=== PATIENT | female | born 1960 | race Caucasian/White ===

== ENCOUNTER 2017-10-06 08:31 | Emergency (ER) | payer OTHER ==
--- OUTSIDE RECORDS SUMMARY | 2017-10-06 08:34 | XMS REPORT | Clinical Summary ---
:1960 Author Organization [facility] Address [address] [place] [address] Phone Care Team Providers Name Role Phone Unavailable Primary Care Provider Unavailable Allergies No Known Allergies Current Medications Prescription Sig. Disp. Refills Start Date End Date Status ALPRAZolam (XANAX) 1 MG Take 1 mg Active tabletIndications: by mouth anxiety every night as needed for Anxiety. lisinopril-hydroCHLOROth Take 1 Active iazide tablet by (PRINZIDE,ZESTORETIC) mouth 20-25 mg per tablet daily. amLODIPine (NORVASC) 5 Take 5 mg Active MG tablet by mouth daily. gabapentin (NEURONTIN) Take 600 mg Active 600 MG tablet by mouth 3 (three) times daily. traMADol (ULTRAM) 50 mg Take 1 30 tablet 0 03/21/2017 Active tablet tablet (50 mg total) by mouth every 8 (eight) hours as needed for Pain. Max Daily Amount: 150 mg pantoprazole (PROTONIX) Take 1 30 tablet 0 03/22/2017 Active 40 MG tablet tablet (40 mg total) by mouth daily. methylPREDNISolone Take 4 mg 03/03/2017 Discontinued (MEDROL DOSEPACK) 4 mg by mouth 2 7 tablet (two) times daily On her @@nd medrol dose pack 3 weeks . traMADol (ULTRAM) 50 mg Take 50 mg Discontinued tablet by mouth 7 every 8 (eight) hours as needed for Pain. ibuprofen (ADVIL,MOTRIN) Take 600 mg Discontinued 600 MG tablet by mouth 7 every 8 (eight) hours as needed for Pain. 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 SOB (shortness of breath) 03/17/2017 Kidney disease 03/17/2017 Leukocytosis 03/17/2017 Resolved Problems Problem Noted Date Resolved Date Acute kidney injury (HCC) 03/22/2017 03/22/2017 Peritonitis (HCC) 03/19/2017 03/22/2017 Overview: Peritonitis due to Gastric Perforation Gastric ulcer with perforation (HCC) 03/17/2017 03/22/2017 SIRS (systemic inflammatory response syndrome) ([facility]) 03/17/2017 03/22/2017 Encounters Date Type Specialty Care Team Description 03/17/2017 - Hospital Encounter General Internal Rishi, Perforated 03/21/2017 Medicine Adalid Bone, viscus;Sepsis, due to MD unspecified organism ([facility]);Acute post-operative pain;Acute blood loss as cause of postoperative anemia;Acute pulmonary insufficiency following non-thoracic surgery ([facility]) 03/17/2017 Anesthesia Event Ion Saini MD 03/17/2017 Procedure Pass 03/17/2017 Surgery Rishi, LAPAROTOMY,EXPLORATOR Deb Alfredo MD after 10/05/2016 Family History Medical History Relation Name Comments Miscarriages / Stillbirths Father COPD Mother Relation Name Status Comments Father Mother Alive Social History Tobacco Use Types Packs/Day Years Used Date Current Every Day Smoker 0.5 20 Smokeless Tobacco: Current User Tobacco Cessation: Ready to Quit: No; Counseling Given: No Alcohol Use Drinks/Week oz/Week Comments Yes social once a month Sex Assigned at Date Recorded Not on file Last Filed Vital Signs Vital Sign Reading Time Taken Blood Pressure 117/61 03/21/2017 7:28 PM TRAINING COORDINATOR Pulse 79 03/21/2017 7:28 PM TRAINING COORDINATOR Temperature 37.6 C (99.7 F) 03/21/2017 7:28 PM TRAINING COORDINATOR Respiratory Rate 18 03/21/2017 7:28 PM TRAINING COORDINATOR Oxygen Saturation 100% 03/21/2017 7:28 PM TRAINING COORDINATOR Inhaled Oxygen Concentration - - Weight 79.9 kg (176 lb 1.6 oz) 03/21/2017 5:00 AM TRAINING COORDINATOR Height 170.2 cm (5' 7") 03/17/2017 3:00 PM TRAINING COORDINATOR Body Mass Index 27.58 03/21/2017 5:00 AM TRAINING COORDINATOR Plan of Treatment Not on file Procedures Procedure Name Priority Date/Time Associated Diagnosis Comments LAPAROTOMY,EXPLORATORY 03/17/2017 6:25 PM TRAINING COORDINATOR GASTRIC PERFORATION Special Needs (REQ TF) after 10/05/2016 Results EKG-SCANNED (03/24/2017 2:10 PM)RHYTHM STRIP - SCAN (03/24/2017 2:10 PM)CT abdomen/pelvis with IV contrast (03/21/2017 5:55 PM) Specimen Performing Laboratory [facility] Narrative FINAL REPORT HISTORY : r/o abdominal abscess Technique: Multiple axial images of the abdomen and pelvis were performed with the administration of IV and oral contrast from the lung bases to the pubic symphysis. Delayed images were also obtained. This exam was performed according to our departmental dose optimization program which includes automated exposure control, adjustment of the mA and/or kV according to patient size and/or use of iterative reconstructive technique. COMPARISON : Outside CT dated 03/17/2017 COMMENT : There are partially visualized bilateral pleural effusions, left greater than right. Adjacent consolidations more likely represent atelectasis. Pneumonitis or aspiration cannot be excluded. In the dependent position of the gallbladder, there is some hyperdense material that could represent sludge versus stones. The visualized liver, spleen, adrenal glands, kidneys, pancreas, stomach and duodenum are within normal limits. There is no abdominal, retroperitoneal or pelvic lymphadenopathy. Multilevel degenerative disc changes of the thoracic spine are seen. Postsurgical changes are seen in the anterior abdominal wall. There is some partial dehiscence of the subcutaneous fat of the anterior abdominal wall. No free air is identified in the abdomen or pelvis. There is a very small amount of nonspecific fluid in the posterior cul-de-sac. No findings of any bowel obstruction. The small bowel is within normal limits. There is colonic diverticulosis. There are no CT findings to suggest diverticulitis, however. Nonspecific fluid is seen in the large bowel. The findings are nonspecific but can be seen in impending diarrhea or a nonspecific enterocolitis. The appendix is The uterus is within normal limits. No adnexal masses are appreciated. Impression: 1. Very small amount of nonspecific fluid in the posterior cul-de-sac. 2. Colonic diverticulosis without CT findings of diverticulitis. 3. Nonspecific fluid in the large bowel, a finding which can be seen in impending diarrhea or a nonspecific enterocolitis. 4. Colonic diverticulosis without CT findings of diverticulitis. 5. Partially visualized bilateral pleural effusions, left greater than right. Signed: Carina Aguilar MD Report Verified Date/Time:03/21/2017 18:07:08 Reading Location: [facility] B1 C013Y CT Body Reading Room Procedure Note Interface, External Ris In - 03/21/2017 6:09 PM TRAINING COORDINATOR FINAL REPORT HISTORY : r/o abdominal abscess Technique: Multiple axial images of the abdomen and pelvis were performed with the administration of IV and oral contrast from the lung bases to the pubic symphysis. Delayed images were also obtained. This exam was performed according to our departmental dose optimization program which includes automated exposure control, adjustment of the mA and/or kV according to patient size and/or use of iterative reconstructive technique. COMPARISON : Outside CT dated 03/17/2017 COMMENT : There are partially visualized bilateral pleural effusions, left greater than right. Adjacent consolidations more likely represent atelectasis. Pneumonitis or aspiration cannot be excluded. In the dependent position of the gallbladder, there is some hyperdense material that could represent sludge versus stones. The visualized liver, spleen, adrenal glands, kidneys, pancreas, stomach and duodenum are within normal limits. There is no abdominal, retroperitoneal or pelvic lymphadenopathy. Multilevel degenerative disc changes of the thoracic spine are seen. Postsurgical changes are seen in the anterior abdominal wall. There is some partial dehiscence of the subcutaneous fat of the anterior abdominal wall. No free air is identified in the abdomen or pelvis. There is a very small amount of nonspecific fluid in the posterior cul-de-sac. No findings of any bowel obstruction. The small bowel is within normal limits. There is colonic diverticulosis. There are no CT findings to suggest diverticulitis, however. Nonspecific fluid is seen in the large bowel. The findings are nonspecific but can be seen in impending diarrhea or a nonspecific enterocolitis. The appendix is The uterus is within normal limits. No adnexal masses are appreciated. Impression: 1. Very small amount of nonspecific fluid in the posterior cul-de-sac. 2. Colonic diverticulosis without CT findings of diverticulitis. 3. Nonspecific fluid in the large bowel, a finding which can be seen in impending diarrhea or a nonspecific enterocolitis. 4. Colonic diverticulosis without CT findings of diverticulitis. 5. Partially visualized bilateral pleural effusions, left greater than right. Signed: Carina Aguilar MD Report Verified Date/Time: 03/21/2017 18:07:08 Reading Location: [facility] B1 C013Y CT Body Reading Room -Glucose meter (03/21/2017 4:03 PM)Only the most recent of15 resultswithin the time period is included. Component Value Ref Range POC-Glucose Meter 111 (H)Comment: TESTED AT [address] 70 - 110 mg/[place] [address] Specimen Performing Laboratory Blood [address] [address] CBC with platelet count + automated diff (03/21/2017 4:09 AM)Only the most recent of6 resultswithin the time period is included. Component Value Ref Range WBC 13.1 (H) 3.5 - 10.5 K/L RBC 3.74 (L) 3.93 - 5.22 M/L Hemoglobin 12.3 11.2 - 15.7 GM/DL Hematocrit 35.7 34.1 - 44.9 % MCV 95.5 (H) 79.4 - 94.8 fL MCH 32.9 (H) 25.6 - 32.2 pg MCHC 34.5 32.2 - 35.5 GM/DL RDW 13.8 11.7 - 14.4 % Platelets 251 150 - 450 K/CU MM MPV 8.9 (L) 9.4 - 12.3 fL nRBC 0 0 - 0 /100 WBC % Neutros 77 % % Lymphs 12 % % Monos 5 % % Eos 5 % % Baso 0 % # Neutros 10.05 (H) 1.56 - 6.13 K/L # Lymphs 1.54 1.18 - 3.74 K/L # Monos 0.67 (H) 0.24 - 0.36 K/L # Eos 0.61 (H) 0.04 - 0.36 K/L # Baso 0.03 0.01 - 0.08 K/L Immature Granulocytes-Relative 1 0 - 1 % Specimen Performing Laboratory Blood - Arm, Left [facility] [address] CBC with platelet count + automated diff (03/21/2017 4:09 AM)Only the most recent of6 resultswithin the time period is included. Specimen Performing Laboratory Blood Narrative The following orders were created for panel order CBC with platelet count + automated diff. Procedure Abnormality Status --------- ------ CBC with platelet count ...[[id number]]AbnormalFinal result Please view results for these tests on the individual orders. Phosphorus (03/21/2017 4:09 AM)Only the most recent of6 resultswithin the time period is included. Component Value Ref Range Phosphorus 2.8 2.3 - 4.7 mg/dL Specimen Performing Laboratory Blood - Arm, [address] [address] Magnesium (03/21/2017 4:09 AM)Only the most recent of6 resultswithin the time period is included. Component Value Ref Range Magnesium 2.1 1.6 - 2.6 mg/dL Specimen Performing Laboratory Blood - Arm, [address] [address] Basic Metabolic Panel (03/21/2017 4:09 AM)Only the most recent of5 resultswithin the time period is included. Component Value Ref Range Sodium 137 136 - 145 meq/L Potassium 2.9 (L) 3.5 - 5.1 meq/L Chloride 101 98 - 107 meq/L CO2 25 22 - 29 meq/L BUN 9 7 - 21 mg/dL Creatinine 0.69 0.57 - 1.25 mg/dL Glucose 93 70 - 105 mg/dL Calcium 8.8 8.4 - 10.2 mg/dL EGFR 88Comment: ESTIMATED GFR IS NOT ACCURATE mL/min/1.73 sq m CREATININE CLEARANCE IN PREDICTING GLOMERULAR FILTRATION RATE. ESTIMATED GFR IS NOT APPLICABLE FOR DIALYSIS PATIENTS. Specimen Performing Laboratory Blood - Arm, [address] [address] TRANSFUSION SERVICE REPORT - SCAN (03/18/2017 5:42 PM)XR abdomen / KUB 1 view ( 03/17/2017 10:08 PM) Specimen Performing Laboratory GE RIS Narrative FINAL REPORT RAD, ABDOMEN/KUB, 1 VIEW AP CLINICAL INDICATION:"ngt placement" COMPARISON: None TECHNIQUE: Single, frontal radiograph of the abdomen. IMPRESSION: Enteric tube terminates in the expected portion of the gastric body. Nonspecific nonobstructive bowel gas pattern. No pneumatosis or obvious pneumoperitoneum. No acute osseous abnormality. Signed: Tony Celaya MD Report Verified Date/Time:03/17/2017 22:20:51 Reading Location: [address] Ortho Consult Reading Room Procedure Note Interface, External Ris In - 03/17/2017 10:49 PM TRAINING COORDINATOR FINAL REPORT RAD, ABDOMEN/KUB, 1 VIEW AP CLINICAL INDICATION: "ngt placement" COMPARISON: None TECHNIQUE: Single, frontal radiograph of the abdomen. IMPRESSION: Enteric tube terminates in the expected portion of the gastric body. Nonspecific nonobstructive bowel gas pattern. No pneumatosis or obvious pneumoperitoneum. No acute osseous abnormality. Signed: Tony Celaya MD Report Verified Date/Time: 03/17/2017 22:20:51 Reading Location: [facility] Ortho Consult Reading Room Blood gas, arterial (03/17/2017 10:06 PM) Component Value Ref Range pH, Arterial 7.29 (L) 7.35 - 7.45 pCO2, Arterial 33 (L) 35 - 45 mmHg pO2, Arterial 76 (L) 80 - 90 mmHg O2 Sat, Arterial 94.5 (L) 96.0 - 97.0 % HCO3, Arterial 16 (L) 21 - 29 mmol/L Base Excess, Arterial -10.1 (L) -2.0 - 3.0 mmol/L Patient Temperature 36.4 C FIO2 28.0 % Specimen Performing Laboratory Blood, Arterial [facility] [address] [address] Manual Differential (03/17/2017 10:05 PM)Only the most recent of2 resultswithin the time period is included. Component Value Ref Range % Neutros (manual) 76 % % Lymphs (manual) 4 % % Monos (manual) 2 % % Eos (manual) 1 % % Bands (manual) 17 (H) 0 - 10 % # Neutros (manual) 12.01 (H) 1.80 - 8.00 K/L # Lymphs (manual) 0.63 (L) 1.48 - 4.50 K/L # Monos (manual) 0.32 0.00 - 1.30 K/L # Eos (manual) 0.16 0.00 - 0.50 K/L # Bands (manual) 2.7 (H) 0.0 - 0.8 K/L Total Counted 100 Bands plus Segmented Neutrophils 14.69 WBC Morphology Normal Platelet Morphology Normal RBC Morphology Normal Specimen Performing Laboratory Blood [address] [address] Comprehensive metabolic panel (03/17/2017 10:05 PM) Component Value Ref Range Protein, Total 5.3 (L) 6.0 - 8.3 gm/dL Albumin 2.9 (L) 3.5 - 5.0 g/dL Alkaline Phosphatase 60 40 - 150 U/L Total Bilirubin 0.8 0.2 - 1.2 mg/dL Sodium 137 136 - 145 meq/L Potassium 3.9 3.5 - 5.1 meq/L Chloride 109 (H) 98 - 107 meq/L CO2 20 (L) 22 - 29 meq/L BUN 34 (H) 7 - 21 mg/dL Creatinine 1.27 (H) 0.57 - 1.25 mg/dL Glucose 115 (H) 70 - 105 mg/dL Calcium 7.9 (L) 8.4 - 10.2 mg/dL AST 51 (H) 5 - 34 U/L ALT 37 6 - 55 U/L EGFR 44Comment: ESTIMATED GFR IS NOT ACCURATE mL/min/1.73 sq m CREATININE CLEARANCE IN PREDICTING GLOMERULAR FILTRATION RATE. ESTIMATED GFR IS NOT APPLICABLE FOR DIALYSIS PATIENTS. Specimen Performing Laboratory Blood [address] [address] Tissue Exam (03/17/2017 8:25 PM) Component Value Ref Range Case Report Surgical Pathology Report Case: [id number] Authorizing Provider:Adalid Blackwell MD Collected: 03/17/20172024 [address]: 03/18/2017 0801 Cardiovascular Pathologist: Sania Chambers MD Specimen:Gastric, Gastric antrum Biopsy ADDENDUM This addendum is being issued to report the GMS stain. RESULT: - GMS stain highlights non-branching fungal pseudohyphal elements. Morphologically, these are suggestive of Amber species. - It is possible that this could represent colonization of the mucosa post- ulceration - Clinical and radiologic correlation is recommended. [id number] DIAGNOSIS A. STOMACH,ANTRUM, BIOPSY: - GASTRIC WALL WITH ULCERATION AND MARKED ACUTE AND CHRONIC INFLAMMATION - NEGATIVE FOR MALIGNANCY - SEE COMMENT AND MICROSCOPIC DESCRIPTION Signing Pathologist Direct Phone Line: [phone] COMMENT Given the presence of non-specific refractile polarizable fragments in the superficial mucosa and deeper gastric wall, medication induced gastritis and subsequent ulceration is a possibility. Possibility of a contaminant cannot be entirely excluded. Clinical and radiologic correlation is recommended. CPT Code(s) 74971 44916 [id number] CLINICAL HISTORY Gastric perforation SPECIMEN SOURCE Gastric antrum biopsy GROSS DESCRIPTION A. Received in formalin labeled "gastric antrum" are two fragments of herrera-pink tissue measuring 0.3-0.5 cm in greatest dimension. Specimen is entirely submitted in block A1.Received in formalin labeled gastric , description gastric antrum biopsy are two irregular, pink-herrera to joel-white, rubbery fragments of soft tissue measuring 0.5 cm and 1.5 cm in greatest dimension. The specimen is entirely submitted in A1. DB/ew MICROSCOPIC DESCRIPTION Sections show gastric wall with complete ulceration of the lining epithelium and superficial mucosa. The deeper aspect of the gastric wall shows significant acute and chronic inflammation comprised of p redominantly lymphocytes sprinkled with few neutrophils and eosinophils. No definite epithelial cells are identified. Refractile polarizable material is identified in the superficial and deeper aspects of the gastric wall. Immunostain for keratin is negative for epithelial proliferation. Immunostains for CD3,CD5 and CD20 highlight few reactive T cells and B cells respectively. Immunostain for Helicobacter pylori is negati ve; however given the fact that the lining epithelium is completely ulcerated , results may not be entirely reliable. SPECIAL STUDIES The following special studies were performed on this case and the interpretation is incorporated in the diagnostic report above: The immunohistochemistry test was developed and its performance characteristics determined by [facility], Pathology Laboratory. It has not been cleared or approved by the U.S. Food and Drug Administration. The FDA has determined that such clearance or approval is not necessary. The test is used for clinical purposes. It should not be regarded as investigational or for research. This laboratory is certified under the Clinical Laboratory Improvement Amendments of 1988 (CLIA-88) as qualified to perform high complexity clinical laboratory testing. Specimen Performing Laboratory Tissue - Gastric [address] [address] Anaerobic culture (03/17/2017 8:13 PM) Component Value Ref Range Result No anaerobes isolated Specimen Performing Laboratory Abscess - Abdomen [address] [address] Surgically obtained culture + gram stain (03/17/2017 8:13 PM) Component Value Ref Range Result Result 1+ Amber albicans (A) Gram Stain Result 2+ White blood cells seen Gram Stain Result No organisms seen Specimen Performing Laboratory Abscess - Abdomen [address] [address] Organism Antibiotic Method Susceptibility Amber albicans Fluconazole 2: Susceptible Amber albicans Micafungin 0.015: Susceptible Amber albicans Voriconazole 0.03: Susceptible ECG 12 lead (03/17/2017 4:22 PM) Specimen Performing Laboratory GE MUSE Narrative Ventricular Rate 63 BPM Atrial Rate 63 BPM P-R Interval 150 ms QRS Duration 86 ms Q-T Interval 432 ms QTC Calculation(Bazett) 442 ms P [place] 43 degrees R [place] 47 degrees T [place] 63 degrees Normal sinus rhythm Normal ECG No previous ECGs available Confirmed by MD RIOS YOCHAI ([id number]) on 03/21/2017 6:38:32 AM Procedure Note Interface, External Ris In - 03/21/2017 6:38 AM TRAINING COORDINATOR Ventricular Rate 63 BPM Atrial Rate 63 BPM P-R Interval 150 ms QRS Duration 86 ms Q-T Interval 432 ms QTC Calculation(Bazett) 442 ms P [place] 43 degrees R [place] 47 degrees T [place] 63 degrees Normal sinus rhythm Normal ECG No previous ECGs available Confirmed by MD RIOS YOCHAI ([id number]) on 03/21/2017 6:38:32 AM Prothrombin time/INR (03/17/2017 4:18 PM)Only the most recent of2 resultswithin the time period is included. Component Value Ref Range Protime 13.9 11.7 - 14.7 seconds INR 1.1 <=5.9 Specimen Performing Laboratory Blood [facility] [address] Narrative RECOMMENDED COUMADIN/WARFARIN INR THERAPY RANGES STANDARD DOSE: 2.0 - 3.0 Includes: PROPHYLAXIS for venous thrombosis, systemic embolization; TREATMENT for venous thrombosis and/or pulmonary embolus. HIGH RISK: Target INR is 2.5-3.5 for patients with mechanical heart valves. Type and screen, automated (03/17/2017 4:16 PM) Component Value Ref Range ABO/RH AUTOMATED (BEAKER) AB POSITIVE Ab Scrn NEGATIVE Specimen Performing Laboratory Blood [address] [address] Troponin I (03/17/2017 4:16 PM) Component Value Ref Range Troponin I <0.01 0.00 - 0.03 ng/mL Specimen Performing Laboratory [address] [address] Narrative Troponin I (TnI) levels must be interpreted in the context of the presenting symptoms and the clinical findings. Elevated TnI levels indicate myocardial damage, but are not specific for ischemic heart disease. Elevated TnI levels are seen in patients with other cardiac conditions (including myocarditis and congestive heart failure), and slight TnI elevations occur in patients with other conditions, including sepsis, renal failure, acidosis, acute neurological disease, and persistent tachyarrhythmia. Blood culture #2 (03/17/2017 4:16 PM)Only the most recent of2 resultswithin the time period is included. Component Value Ref Range Result No growth in 5 days Specimen Performing Laboratory Blood - Arm, Left [address] [address] aPTT (03/17/2017 4:16 PM) Component Value Ref Range PTT 21.4 (L) 22.5 - 36.0 seconds Specimen Performing Laboratory Blood [address] [address] Creatine Kinase (CK), Total and MB (03/17/2017 4:16 PM) Component Value Ref Range Total CK 39 29 - 200 U/L CK-MB 1.2 0.0 - 6.6 ng/mL MB Relative Index 3.1 % Specimen Performing Laboratory Blood [address] [address] Narrative CK-MB Reference Range: <6.7Normal 6.7-10.0Borderline >10.0 Abnormal Hepatic function panel (03/17/2017 4:16 PM) Component Value Ref Range Protein, Total 6.5Comment: Specimen slightly hemolyzed 6.0 - 8.3 gm/dL Albumin 3.4 (L)Comment: Specimen slightly hemolyzed 3.5 - 5.0 g/dL Total Bilirubin 0.8Comment: Specimen slightly hemolyzed 0.2 - 1.2 mg/dL Bilirubin, Direct 0.3Comment: Specimen slightly hemolyzed 0.1 - 0.5 mg/dL Alkaline Phosphatase 73 40 - 150 U/L AST 16Comment: Specimen slightly hemolyzed 5 - 34 U/L ALT 14Comment: Specimen slightly hemolyzed 6 - 55 U/L Specimen Performing Laboratory Blood [facility] [address] [address] after 10/05/2016
--- OUTSIDE RECORDS SUMMARY | 2017-10-06 08:34 | XMS REPORT ---
:1960 [facility] Address [address] [place] [address] Dr. Freeman [address] [place] [id number] Care Team Providers Name Role Phone ALETA BLACKWELL Unavailable Unavailable Problems This patient has no known problems. Allergies, Adverse Reactions, Alerts This patient has no known allergies or adverse reactions. Medications This patient has no known medications. Results Test Description Test Time Test Comments Text Results Atomic Results Result Comments BLOOD CULTURE 2017-03-22 23:00:00 Test Item Value Reference Range Comments CULTURE (BEAKER) (test nxgv=1398) No growth in 5 days BLOOD [id number] 23:00:00 Test Item Value Reference Range Comments CULTURE (BEAKER) (test msqb=6635) No growth in 5 days ANAEROBIC [id number] 04:03:00 Test Item Value Reference Range Comments CULTURE (BEAKER) (test qxsc=6645) No anaerobes isolated TISSUE [id number] 18:46:00Surgical Pathology Report Case: [id number] Authorizing Provider: Aleta Blackwell MD Collected: 03/17/20172024 Ordering Location: [address] Received: 03/18/2017 0801 Cardiovascular Pathologist: Sania Chambers MD Specimen: Gastric, Gastric antrum Biopsy This addendum is being issued to report the GMS stain.RESULT:- GMS stain highlights non-branching fungal pseudohyphal elements. Morphologically, these are suggestive of Amber species. - It is possible that this could represent colonization of the mucosa post- ulceration- Clinical and radiologic correlation is recommended.[id number] electronically signed by Sania Chambers MD on 03/21/2017 at 6:46 PMA. STOMACH,ANTRUM, BIOPSY: - GASTRIC WALL WITH ULCERATION AND MARKED ACUTE AND CHRONIC INFLAMMATION - NEGATIVE FOR MALIGNANCY - SEE COMMENT AND MICROSCOPIC DESCRIPTION Signing Pathologist Direct Phone Line: [phone] signed by Sania Chambers MD on 03/21/2017 at 5:51 PMPreliminary result electronically signed by Sania Chambers MD on 2016 at 10:07 AMGiven the presence of non-specific refractile polarizable fragments in the superficial mucosa and deeper gastric wall, medication induced gastritis and subsequent ulceration is a possibility. Possibility of a contaminant cannot be entirely excluded. Clinical and radiologic correlation is recommended.[id number] perforationGastric antrum biopsyA. Received in formalin labeled "gastric antrum" are two fragments of herrera-pink tissue measuring 0.3-0.5 cm in greatest dimension. Specimen is entirely submitted in block A1.Received in formalin labeled "gastric", description "gastric antrum biopsy" are two irregular, pink-herrera to joel-white, rubbery fragments of soft tissue measuring 0.5 cm and 1.5 cm in greatest dimension. The specimen is entirely submitted in A1. DB/ew Sections show gastric wall with complete ulceration of the lining epithelium and superficial mucosa. The deeper aspect of the gastric wall showssignificant acute and chronic inflammation comprised of predominantly lymphocytes sprinkled with fewneutrophils and eosinophils. No definite epithelial cells are identified. Refractile polarizable material is identified in the superficial and deeper aspects of the gastric wall.Immunostain for keratinis negative for epithelial proliferation. Immunostains for CD3,CD5 and CD20 highlight few reactive Tcells and B cells respectively. Immunostain for Helicobacter pylori is negative; however given the fact that the lining epithelium is completely ulcerated, results may not be entirely reliable. The following special studies were performed on this case and the interpretation is incorporated in the diagnostic report above:The immunohistochemistry test was developed and its performance characteristics determined by [facility], Pathology Laboratory. It has not been cleared or approved by the U.S. Food and Drug Administration. The FDA has determined that such clearance or approval is not necessary. The test is used for clinical purposes. It should not be regarded as investigational orfor research. This laboratory is certified under the Clinical Laboratory Improvement Amendments of 1988 (CLIA-88) as qualified to perform high complexity clinical laboratory testing.CT, [id number] 18:07:00Please give IV and ORAL contrast to rule out intra-abdominal abscess. Persistent leukocytosis. s/p viky patch repair on 03/18 due to gastric perforation from ulcer.FINAL REPORT HISTORY : r/o abdominal abscess Technique: Multiple axial imagesof the abdomen and pelvis were performed with the administration of IV and oral contrast from the lung bases to the pubic symphysis. Delayed images were also obtained. This exam was performed accordingto our departmental dose optimization program which includes automated exposure control, adjustment of the mA and/or kV according to patient size and/ or use of iterative reconstructive technique. COMPARISON : Outside CT dated 03/17 COMMENT : There are partially visualized bilateral [...] left greater than right. Signed: Carina Aguilar MDReport Verified Date/Time: 03/21/2017 18:07:08 Reading Location: [facility] B1 C013Y CT Body Reading Room POCT-GLUCOSE [id number] 17:34:00 Test Item Value Reference Range Comments POC-GLUCOSE METER (BEAKER) 111 mg/dL 70-110 TESTED AT [address] (test lonx=4362) [place] [address] SURGICALLY OBTAINED CULTURE + GRAM [id number] 15:37:00 Test Item Value Reference Range Comments CULTURE (BEAKER) (test 1+ Amber cuun=8076) albicans GRAM STAIN RESULT 2+ White blood (BEAKER) (test cells seen mydq=6981) GRAM STAIN RESULT No organisms seen (BEAKER) (test fauy=722647) CULTURE (BEAKER) (test klqo=6739) 5-Flurocytosine (test ehmq=556) Caspofungin acetate (test wwwr=413) Fluconazole (test gttr=972) Itraconazole (test vfik=898) Micafungin (test yfgm=240) Voriconazole (test mtfo=353) Amphotericin B (test Susceptible >0-0 , No tjbr=200) Interpretations Established <=0 or >0 Posaconazole (test Susceptible >0-0 , No dtjl=871) Interpretations Established <=0 or >0 GRAM STAIN RESULT No organisms seen (BEAKER) (test mjtf=517908) POCT-GLUCOSE [id number] 12:25:00 Test Item Value Reference Range Comments POC-GLUCOSE METER (BEAKER) 88 mg/dL 70-110 TESTED AT [address] (test vcoo=8570) [place] [address] [id number] 05:41:00 Test Item Value Reference Range Comments PHOSPHORUS (BEAKER) (test tywv=648) 2.8 mg/dL 2.3-4.7 [id number] 05:41:00 Test Item Value Reference Range Comments MAGNESIUM (BEAKER) (test nnel=709) 2.1 mg/dL 1.6-2.6 BASIC METABOLIC [id number] 05:41:00 Test Item Value Reference Range Comments SODIUM (BEAKER) (test 137 meq/L 136-145 nblc=457) POTASSIUM (BEAKER) (test 2.9 meq/L 3.5-5.1 rmqc=508) CHLORIDE (BEAKER) (test 101 meq/L 98-107 zptf=406) CO2 (BEAKER) (test 25 meq/L 22-29 dvtu=729) BLOOD UREA NITROGEN 9 mg/dL 7-21 (BEAKER) (test ixuf=646) CREATININE (BEAKER) (test 0.69 mg/dL 0.57-1.25 qfig=355) GLUCOSE RANDOM (BEAKER) 93 mg/dL 70-105 (test iqdx=211) CALCIUM (BEAKER) (test 8.8 mg/dL 8.4-10.2 miwa=607) EGFR (BEAKER) (test 88 mL/min/1.73 sq m ESTIMATED GFR IS NOT htnl=6486) ACCURATE CREATININE CLEARANCE IN PREDICTING GLOMERULAR FILTRATION RATE. ESTIMATED GFR IS NOT APPLICABLE FOR DIALYSIS PATIENTS. CBC W/PLT COUNT & AUTO [id number] 05:34:00 Test Item Value Reference Range Comments WHITE BLOOD CELL COUNT (BEAKER) (test jder=790) 13.1 K/ L 3.5-10.5 RED BLOOD CELL COUNT (BEAKER) (test pgtf=092) 3.74 M/ L 3.93-5.22 HEMOGLOBIN (BEAKER) (test eats=199) 12.3 GM/DL 11.2-15.7 HEMATOCRIT (BEAKER) (test gupc=665) 35.7 % 34.1-44.9 MEAN CORPUSCULAR VOLUME (BEAKER) (test nnkn=910) 95.5 fL 79.4-94.8 MEAN CORPUSCULAR HEMOGLOBIN (BEAKER) (test 32.9 pg 25.6-32.2 jsjj=047) MEAN CORPUSCULAR HEMOGLOBIN CONC (BEAKER) (test 34.5 GM/DL 32.2-35.5 qkpp=712) RED CELL DISTRIBUTION WIDTH (BEAKER) (test 13.8 % 11.7-14.4 ajni=641) PLATELET COUNT (BEAKER) (test khhq=959) 251 K/CU MM 150-450 MEAN PLATELET VOLUME (BEAKER) (test xymp=481) 8.9 fL 9.4-12.3 NUCLEATED RED BLOOD CELLS (BEAKER) (test 0 /100 WBC 0-0 arlb=534) NEUTROPHILS RELATIVE PERCENT (BEAKER) (test 77 % siud=566) LYMPHOCYTES RELATIVE PERCENT (BEAKER) (test 12 % biym=768) MONOCYTES RELATIVE PERCENT (BEAKER) (test 5 % zfad=563) EOSINOPHILS RELATIVE PERCENT (BEAKER) (test 5 % dkdu=156) BASOPHILS RELATIVE PERCENT (BEAKER) (test 0 % tvxd=536) NEUTROPHILS ABSOLUTE COUNT (BEAKER) (test 10.05 K/ L 1.56-6.13 zynq=950) LYMPHOCYTES ABSOLUTE COUNT (BEAKER) (test 1.54 K/ L 1.18-3.74 lryf=307) MONOCYTES ABSOLUTE COUNT (BEAKER) (test 0.67 K/ L 0.24-0.36 faql=343) EOSINOPHILS ABSOLUTE COUNT (BEAKER) (test 0.61 K/ L 0.04-0.36 nxqs=162) BASOPHILS ABSOLUTE COUNT (BEAKER) (test 0.03 K/ L 0.01-0.08 ufvf=233) IMMATURE GRANULOCYTES-RELATIVE PERCENT (BEAKER) 1 % 0-1 (test hjel=6688) POCT-GLUCOSE [id number] 05:14:00 Test Item Value Reference Range Comments POC-GLUCOSE METER (BEAKER) 98 mg/dL 70-110 TESTED AT [address] (test bplk=4008) [place] [address] POCT-GLUCOSE [id number] 00:28:00 Test Item Value Reference Range Comments POC-GLUCOSE METER (BEAKER) 104 mg/dL 70-110 TESTED AT [address] (test gxqv=2489) [place] [address] POCT-GLUCOSE [id number] 17:13:00 Test Item Value Reference Range Comments POC-GLUCOSE METER (BEAKER) 90 mg/dL 70-110 TESTED AT [address] (test whsj=7906) [place] [address] POCT-GLUCOSE [id number] 12:20:00 Test Item Value Reference Range Comments POC-GLUCOSE METER (BEAKER) 101 mg/dL 70-110 TESTED AT [address] (test ahpk=3538) [place] [address] [id number] 06:21:00 Test Item Value Reference Range Comments PHOSPHORUS (BEAKER) (test pmfa=761) 2.5 mg/dL 2.3-4.7 [id number] 06:21:00 Test Item Value Reference Range Comments MAGNESIUM (BEAKER) (test gltf=652) 1.8 mg/dL 1.6-2.6 BASIC METABOLIC [id number] 06:21:00 Test Item Value Reference Range Comments SODIUM (BEAKER) (test 139 meq/L 136-145 cydv=653) POTASSIUM (BEAKER) (test 2.9 meq/L 3.5-5.1 axpe=947) CHLORIDE (BEAKER) (test 105 meq/L 98-107 jeiy=453) CO2 (BEAKER) (test 22 meq/L 22-29 xgha=598) BLOOD UREA NITROGEN 12 mg/dL 7-21 (BEAKER) (test ghxu=654) CREATININE (BEAKER) (test 0.72 mg/dL 0.57-1.25 pnei=868) GLUCOSE RANDOM (BEAKER) 85 mg/dL 70-105 (test nxoh=104) CALCIUM (BEAKER) (test 8.4 mg/dL 8.4-10.2 jsdf=240) EGFR (BEAKER) (test 84 mL/min/1.73 sq m ESTIMATED GFR IS NOT dvqq=7136) ACCURATE CREATININE CLEARANCE IN PREDICTING GLOMERULAR FILTRATION RATE. ESTIMATED GFR IS NOT APPLICABLE FOR DIALYSIS PATIENTS. CBC W/PLT COUNT & AUTO [id number] 06:05:00 Test Item Value Reference Range Comments WHITE BLOOD CELL COUNT (BEAKER) (test zcod=087) 16.4 K/ L 3.5-10.5 RED BLOOD CELL COUNT (BEAKER) (test nplv=602) 3.88 M/ L 3.93-5.22 HEMOGLOBIN (BEAKER) (test nfko=191) 12.6 GM/DL 11.2-15.7 HEMATOCRIT (BEAKER) (test uaad=116) 37.5 % 34.1-44.9 MEAN CORPUSCULAR VOLUME (BEAKER) (test sksm=889) 96.6 fL 79.4-94.8 MEAN CORPUSCULAR HEMOGLOBIN (BEAKER) (test 32.5 pg 25.6-32.2 qcjh=885) MEAN CORPUSCULAR HEMOGLOBIN CONC (BEAKER) (test 33.6 GM/DL 32.2-35.5 czkl=810) RED CELL DISTRIBUTION WIDTH (BEAKER) (test 14.1 % 11.7-14.4 ukzc=843) PLATELET COUNT (BEAKER) (test rnon=907) 210 K/CU MM 150-450 MEAN PLATELET VOLUME (BEAKER) (test ipjx=267) 9.1 fL 9.4-12.3 NUCLEATED RED BLOOD CELLS (BEAKER) (test 0 /100 WBC 0-0 eegb=440) NEUTROPHILS RELATIVE PERCENT (BEAKER) (test 82 % hvhe=030) LYMPHOCYTES RELATIVE PERCENT (BEAKER) (test 10 % hvbp=249) MONOCYTES RELATIVE PERCENT (BEAKER) (test 3 % cmnr=759) EOSINOPHILS RELATIVE PERCENT (BEAKER) (test 4 % lnet=358) BASOPHILS RELATIVE PERCENT (BEAKER) (test 0 % sgvs=896) NEUTROPHILS ABSOLUTE COUNT (BEAKER) (test 13.48 K/ L 1.56-6.13 gofb=830) LYMPHOCYTES ABSOLUTE COUNT (BEAKER) (test 1.56 K/ L 1.18-3.74 nzvp=610) MONOCYTES ABSOLUTE COUNT (BEAKER) (test 0.45 K/ L 0.24-0.36 ihod=105) EOSINOPHILS ABSOLUTE COUNT (BEAKER) (test 0.69 K/ L 0.04-0.36 mfbn=208) BASOPHILS ABSOLUTE COUNT (BEAKER) (test 0.03 K/ L 0.01-0.08 togz=486) IMMATURE GRANULOCYTES-RELATIVE PERCENT (BEAKER) 1 % 0-1 (test wsuv=7400) POCT-GLUCOSE [id number] 05:44:00 Test Item Value Reference Range Comments POC-GLUCOSE METER (BEAKER) 99 mg/dL 70-110 TESTED AT [address] (test yuns=5726) [place] [id number] POCT-GLUCOSE [id number] 23:08:00 Test Item Value Reference Range Comments POC-GLUCOSE METER (BEAKER) 107 mg/dL 70-110 TESTED AT [address] (test judi=3262) [facility] [address] POCT-GLUCOSE [id number] 17:56:00 Test Item Value Reference Range Comments POC-GLUCOSE METER (BEAKER) 102 mg/dL 70-110 TESTED AT [address] (test ygmk=7750) [place] [address] POCT-GLUCOSE [id number] 13:00:00 Test Item Value Reference Range Comments POC-GLUCOSE METER (BEAKER) 119 mg/dL 70-110 TESTED AT [address] (test nnnl=6131) [facility] [address] [id number] 08:26:00 Test Item Value Reference Range Comments PHOSPHORUS (BEAKER) (test lrrq=814) 2.0 mg/dL 2.3-4.7 [id number] 08:26:00 Test Item Value Reference Range Comments MAGNESIUM (BEAKER) (test ifle=631) 2.2 mg/dL 1.6-2.6 BASIC METABOLIC [id number] 08:26:00 Test Item Value Reference Range Comments SODIUM (BEAKER) (test 141 meq/L 136-145 drmj=078) POTASSIUM (BEAKER) (test 3.6 meq/L 3.5-5.1 tuko=458) CHLORIDE (BEAKER) (test 108 meq/L 98-107 owxy=463) CO2 (BEAKER) (test 21 meq/L 22-29 ybqv=521) BLOOD UREA NITROGEN 19 mg/dL 7-21 (BEAKER) (test rwiw=809) CREATININE (BEAKER) (test 0.87 mg/dL 0.57-1.25 cmtu=734) GLUCOSE RANDOM (BEAKER) 91 mg/dL 70-105 (test vubq=095) CALCIUM (BEAKER) (test 8.5 mg/dL 8.4-10.2 lbjq=360) EGFR (BEAKER) (test 68 mL/min/1.73 sq m ESTIMATED GFR IS NOT rope=6488) ACCURATE CREATININE CLEARANCE IN PREDICTING GLOMERULAR FILTRATION RATE. ESTIMATED GFR IS NOT APPLICABLE FOR DIALYSIS PATIENTS. CBC W/PLT COUNT & AUTO [id number] 08:18:00 Test Item Value Reference Range Comments WHITE BLOOD CELL COUNT (BEAKER) (test ytum=673) 15.8 K/ L 3.5-10.5 RED BLOOD CELL COUNT (BEAKER) (test nska=019) 4.15 M/ L 3.93-5.22 HEMOGLOBIN (BEAKER) (test nhjg=739) 13.8 GM/DL 11.2-15.7 HEMATOCRIT (BEAKER) (test idfr=618) 41.4 % 34.1-44.9 MEAN CORPUSCULAR VOLUME (BEAKER) (test bcjg=797) 99.8 fL 79.4-94.8 MEAN CORPUSCULAR HEMOGLOBIN (BEAKER) (test 33.3 pg 25.6-32.2 yzjg=895) MEAN CORPUSCULAR HEMOGLOBIN CONC (BEAKER) (test 33.3 GM/DL 32.2-35.5 gxbb=465) RED CELL DISTRIBUTION WIDTH (BEAKER) (test 14.7 % 11.7-14.4 dcxb=163) PLATELET COUNT (BEAKER) (test abnb=871) 210 K/CU MM 150-450 MEAN PLATELET VOLUME (BEAKER) (test pdsc=713) 9.6 fL 9.4-12.3 NUCLEATED RED BLOOD CELLS (BEAKER) (test 0 /100 WBC 0-0 zrtf=310) NEUTROPHILS RELATIVE PERCENT (BEAKER) (test 86 % thsm=427) LYMPHOCYTES RELATIVE PERCENT (BEAKER) (test 8 % nisy=455) MONOCYTES RELATIVE PERCENT (BEAKER) (test 3 % amjh=535) EOSINOPHILS RELATIVE PERCENT (BEAKER) (test 2 % yipq=616) BASOPHILS RELATIVE PERCENT (BEAKER) (test 0 % htlv=679) NEUTROPHILS ABSOLUTE COUNT (BEAKER) (test 13.65 K/ L 1.56-6.13 knrx=915) LYMPHOCYTES ABSOLUTE COUNT (BEAKER) (test 1.22 K/ L 1.18-3.74 oplk=942) MONOCYTES ABSOLUTE COUNT (BEAKER) (test 0.51 K/ L 0.24-0.36 tbly=535) EOSINOPHILS ABSOLUTE COUNT (BEAKER) (test 0.26 K/ L 0.04-0.36 xwxt=359) BASOPHILS ABSOLUTE COUNT (BEAKER) (test 0.03 K/ L 0.01-0.08 nzjo=279) IMMATURE GRANULOCYTES-RELATIVE PERCENT (BEAKER) 1 % 0-1 (test djsi=8877) POCT-GLUCOSE [id number] 07:31:00 Test Item Value Reference Range Comments POC-GLUCOSE METER (BEAKER) 104 mg/dL 70-110 TESTED AT [address] (test nsgf=4120) [facility] [address] POCT-GLUCOSE [id number] 00:39:00 Test Item Value Reference Range Comments POC-GLUCOSE METER (BEAKER) 91 mg/dL 70-110 TESTED AT [address] (test hyzc=9278) [facility] [address] POCT-GLUCOSE [id number] 17:36:00 Test Item Value Reference Range Comments POC-GLUCOSE METER (BEAKER) 81 mg/dL 70-110 TESTED AT [facility] [address] [facility] (test mmsz=2439) [facility] [address] POCT-GLUCOSE [id number] 11:26:00 Test Item Value Reference Range Comments POC-GLUCOSE METER (BEAKER) 105 mg/dL 70-110 TESTED AT [address] (test pdxh=2203) [facility] [address] POCT-GLUCOSE [id number] 05:58:00 Test Item Value Reference Range Comments POC-GLUCOSE METER (BEAKER) 124 mg/dL 70-110 TESTED AT [address] (test unbd=5108) [facility] [address] [id number] 03:33:00 Test Item Value Reference Range Comments PHOSPHORUS (BEAKER) (test hwrb=522) 4.9 mg/dL 2.3-4.7 [id number] 03:33:00 Test Item Value Reference Range Comments MAGNESIUM (BEAKER) (test nefl=470) 1.7 mg/dL 1.6-2.6 BASIC METABOLIC [id number] 03:33:00 Test Item Value Reference Range Comments SODIUM (BEAKER) (test 138 meq/L 136-145 hlcz=680) POTASSIUM (BEAKER) (test 4.5 meq/L 3.5-5.1 tuqc=914) CHLORIDE (BEAKER) (test 110 meq/L 98-107 twoy=071) CO2 (BEAKER) (test 20 meq/L 22-29 jptn=890) BLOOD UREA NITROGEN 29 mg/dL 7-21 (BEAKER) (test okcx=899) CREATININE (BEAKER) (test 1.12 mg/dL 0.57-1.25 acuz=386) GLUCOSE RANDOM (BEAKER) 124 mg/dL 70-105 (test wsvv=289) CALCIUM (BEAKER) (test 8.1 mg/dL 8.4-10.2 ybfv=450) EGFR (BEAKER) (test 51 mL/min/1.73 sq m ESTIMATED GFR IS NOT tawe=3850) ACCURATE CREATININE CLEARANCE IN PREDICTING GLOMERULAR FILTRATION RATE. ESTIMATED GFR IS NOT APPLICABLE FOR DIALYSIS PATIENTS. CBC W/PLT COUNT & AUTO [id number] 03:22:00 Test Item Value Reference Range Comments WHITE BLOOD CELL COUNT (BEAKER) (test aoki=065) 19.3 K/ L 3.5-10.5 RED BLOOD CELL COUNT (BEAKER) (test fteu=452) 3.62 M/ L 3.93-5.22 HEMOGLOBIN (BEAKER) (test turm=571) 11.9 GM/DL 11.2-15.7 HEMATOCRIT (BEAKER) (test idfi=676) 36.5 % 34.1-44.9 MEAN CORPUSCULAR VOLUME (BEAKER) (test rojc=365) 100.8 fL 79.4-94.8 MEAN CORPUSCULAR HEMOGLOBIN (BEAKER) (test 32.9 pg 25.6-32.2 xbtv=002) MEAN CORPUSCULAR HEMOGLOBIN CONC (BEAKER) (test 32.6 GM/DL 32.2-35.5 hqkg=592) RED CELL DISTRIBUTION WIDTH (BEAKER) (test 14.6 % 11.7-14.4 ajmm=151) PLATELET COUNT (BEAKER) (test fkue=911) 218 K/CU MM 150-450 MEAN PLATELET VOLUME (BEAKER) (test czct=554) 9.3 fL 9.4-12.3 NUCLEATED RED BLOOD CELLS (BEAKER) (test 0 /100 WBC 0-0 bzhp=704) NEUTROPHILS RELATIVE PERCENT (BEAKER) (test 94 % kscz=146) LYMPHOCYTES RELATIVE PERCENT (BEAKER) (test 3 % qdig=681) MONOCYTES RELATIVE PERCENT (BEAKER) (test 3 % qghx=624) EOSINOPHILS RELATIVE PERCENT (BEAKER) (test 0 % utpf=825) BASOPHILS RELATIVE PERCENT (BEAKER) (test 0 % xdzj=095) NEUTROPHILS ABSOLUTE COUNT (BEAKER) (test 18.11 K/ L 1.56-6.13 eqgg=805) LYMPHOCYTES ABSOLUTE COUNT (BEAKER) (test 0.55 K/ L 1.18-3.74 vckj=455) MONOCYTES ABSOLUTE COUNT (BEAKER) (test 0.53 K/ L 0.24-0.36 nogt=646) EOSINOPHILS ABSOLUTE COUNT (BEAKER) (test 0.00 K/ L 0.04-0.36 gyzl=708) BASOPHILS ABSOLUTE COUNT (BEAKER) (test 0.03 K/ L 0.01-0.08 pjkr=480) IMMATURE GRANULOCYTES-RELATIVE PERCENT (BEAKER) 0 % 0-1 (test pitp=3381) (MANUAL DIFFERENTIAL)2017-03-17 22:54:00 Test Item Value Reference Range Comments NEUTROPHILS - REL (DIFF) (BEAKER) (test 76 % eeyb=5763) LYMPHOCYTES - REL (DIFF) (BEAKER) (test 4 % xprn=8179) MONOCYTES - REL (DIFF) (BEAKER) (test vnak=1007) 2 % EOSINOPHILS - REL (DIFF) (BEAKER) (test 1 % lrju=3283) BANDS - REL (DIFF) (BEAKER) (test ygpr=9439) 17 % 0-10 NEUTROPHILS - ABS (DIFF) (BEAKER) (test 12.01 K/ L 1.80-8.00 olbz=2328) LYMPHOCYTES - ABS (DIFF) (BEAKER) (test 0.63 K/ L 1.48-4.50 pyfw=3132) MONOCYTES - ABS (DIFF) (BEAKER) (test nevw=6537) 0.32 K/ L 0.00-1.30 EOSINOPHILS - ABS (DIFF) (BEAKER) (test 0.16 K/ L 0.00-0.50 llip=2077) BANDS-ABS (DIFF) (BEAKER) (test xcut=3274) 2.7 K/ L 0.0-0.8 TOTAL COUNTED (BEAKER) (test ctti=3935) 100 BANDS + SEGMENTED NEUTROPHILS (BEAKER) (test 14.69 ybsn=4980) WBC MORPHOLOGY (BEAKER) (test bbxb=893) Normal PLT MORPHOLOGY (BEAKER) (test qvcu=183) Normal RBC MORPHOLOGY (BEAKER) (test czqw=539) Normal CBC W/PLT COUNT & AUTO [id number] 22:53:00 Test Item Value Reference Range Comments WHITE BLOOD CELL COUNT (BEAKER) (test lbxl=816) 15.8 K/ L 3.5-10.5 RED BLOOD CELL COUNT (BEAKER) (test kujd=647) 3.54 M/ L 3.93-5.22 HEMOGLOBIN (BEAKER) (test fgns=626) 11.8 GM/DL 11.2-15.7 HEMATOCRIT (BEAKER) (test wodw=042) 36.0 % 34.1-44.9 MEAN CORPUSCULAR VOLUME (BEAKER) (test jdiy=178) 101.7 fL 79.4-94.8 MEAN CORPUSCULAR HEMOGLOBIN (BEAKER) (test 33.3 pg 25.6-32.2 xbsh=931) MEAN CORPUSCULAR HEMOGLOBIN CONC (BEAKER) (test 32.8 GM/DL 32.2-35.5 gvpc=361) RED CELL DISTRIBUTION WIDTH (BEAKER) (test 14.6 % 11.7-14.4 ndca=560) PLATELET COUNT (BEAKER) (test hfuy=578) 192 K/CU MM 150-450 MEAN PLATELET VOLUME (BEAKER) (test wucn=321) 9.4 fL 9.4-12.3 NUCLEATED RED BLOOD CELLS (BEAKER) (test 0 /100 WBC 0-0 ackb=289) NEUTROPHILS RELATIVE PERCENT (BEAKER) (test 91 % vuau=783) LYMPHOCYTES RELATIVE PERCENT (BEAKER) (test 6 % ggps=304) MONOCYTES RELATIVE PERCENT (BEAKER) (test 3 % pbas=510) EOSINOPHILS RELATIVE PERCENT (BEAKER) (test 0 % ddum=148) BASOPHILS RELATIVE PERCENT (BEAKER) (test 0 % kuna=391) NEUTROPHILS ABSOLUTE COUNT (BEAKER) (test 14.33 K/ L 1.56-6.13 rakx=293) LYMPHOCYTES ABSOLUTE COUNT (BEAKER) (test 0.87 K/ L 1.18-3.74 deom=502) MONOCYTES ABSOLUTE COUNT (BEAKER) (test 0.51 K/ L 0.24-0.36 bgeq=607) EOSINOPHILS ABSOLUTE COUNT (BEAKER) (test 0.04 K/ L 0.04-0.36 pgnn=476) BASOPHILS ABSOLUTE COUNT (BEAKER) (test 0.02 K/ L 0.01-0.08 bmyw=381) IMMATURE GRANULOCYTES-RELATIVE PERCENT (BEAKER) 0 % 0-1 (test sbhk=9092) COMPREHENSIVE METABOLIC [id number] 22:37:00 Test Item Value Reference Range Comments TOTAL PROTEIN (BEAKER) 5.3 gm/dL 6.0-8.3 (test uqil=152) ALBUMIN (BEAKER) (test 2.9 g/dL 3.5-5.0 leez=8885) ALKALINE PHOSPHATASE 60 U/L 40-150 (BEAKER) (test csnb=334) BILIRUBIN TOTAL (BEAKER) 0.8 mg/dL 0.2-1.2 (test vyxu=502) SODIUM (BEAKER) (test 137 meq/L 136-145 yblc=061) POTASSIUM (BEAKER) (test 3.9 meq/L 3.5-5.1 evzl=569) CHLORIDE (BEAKER) (test 109 meq/L 98-107 icwk=022) CO2 (BEAKER) (test 20 meq/L 22-29 slit=446) BLOOD UREA NITROGEN 34 mg/dL 7-21 (BEAKER) (test zchk=041) CREATININE (BEAKER) (test 1.27 mg/dL 0.57-1.25 ustm=745) GLUCOSE RANDOM (BEAKER) 115 mg/dL 70-105 (test juey=984) CALCIUM (BEAKER) (test 7.9 mg/dL 8.4-10.2 esrl=653) AST (SGOT) (BEAKER) (test 51 U/L 5-34 kgvl=161) ALT (SGPT) (BEAKER) (test 37 U/L 6-55 fkpl=749) EGFR (BEAKER) (test 44 mL/min/1.73 sq m ESTIMATED GFR IS NOT hvsc=1369) ACCURATE CREATININE CLEARANCE IN PREDICTING GLOMERULAR FILTRATION RATE. ESTIMATED GFR IS NOT APPLICABLE FOR DIALYSIS PATIENTS. [id number] 22:36:00 Test Item Value Reference Range Comments PHOSPHORUS (BEAKER) (test vdnl=875) 4.4 mg/dL 2.3-4.7 [id number] 22:36:00 Test Item Value Reference Range Comments MAGNESIUM (BEAKER) (test uana=101) 1.3 mg/dL 1.6-2.6 BLOOD GAS, [id number] 22:31:00 Test Item Value Reference Range Comments PH ARTERIAL (BEAKER) (test fwgr=296) 7.29 7.35-7.45 PCO2 ARTERIAL (BEAKER) (test gnrs=688) 33 mmHg 35-45 PO2 ARTERIAL (BEAKER) (test rkln=584) 76 mmHg 80-90 O2 SATURATION ARTERIAL (BEAKER) (test etsj=059) 94.5 % 96.0-97.0 HCO3 ARTERIAL (BEAKER) (test njxa=055) 16 mmol/L 21-29 BASE EXCESS ARTERIAL (BEAKER) (test rbvm=135) -10.1 mmol/L -2.0-3.0 PATIENT TEMPERATURE (BEAKER) (test blgy=3441) 36.4 C FIO2 (BEAKER) (test rxco=3172) 28.0 % RAD, ABDOMEN/KUB, 1 VIEW [id number] 22:20:00Reason for exam:->ngt placementFINAL REPORT RAD, ABDOMEN/KUB, 1 VIEW AP CLINICAL INDICATION: "ngt placement" COMPARISON: None TECHNIQUE: Single, frontal radiograph of the abdomen. IMPRESSION: Enteric tube terminates in the expected portion of the gastric body.Nonspecific nonobstructive bowel gas pattern.No pneumatosis or obvious pneumoperitoneum.No acute osseous abnormality. Signed: Tony Celaya MDReport Verified Date/Time: 03/17/2017 22 :20:51 Reading Location: [facility] [id number] Ortho Consult Reading Room (MANUAL DIFFERENTIAL)2017-03-17 17:58:00 Test Item Value Reference Range Comments NEUTROPHILS - REL (DIFF) (BEAKER) (test 72 % salr=0940) LYMPHOCYTES - REL (DIFF) (BEAKER) (test 10 % uhlq=0810) MONOCYTES - REL (DIFF) (BEAKER) (test tqtz=2964) 4 % BANDS - REL (DIFF) (BEAKER) (test ghye=6099) 14 % 0-10 NEUTROPHILS - ABS (DIFF) (BEAKER) (test 11.38 K/ L 1.80-8.00 uese=9004) LYMPHOCYTES - ABS (DIFF) (BEAKER) (test 1.58 K/ L 1.48-4.50 rjlg=7951) MONOCYTES - ABS (DIFF) (BEAKER) (test wpzb=6704) 0.63 K/ L 0.00-1.30 BANDS-ABS (DIFF) (BEAKER) (test rlgf=4639) 2.2 K/ L 0.0-0.8 TOTAL COUNTED (BEAKER) (test spvz=4254) 100 BANDS + SEGMENTED NEUTROPHILS (BEAKER) (test 13.59 wwcp=7628) WBC MORPHOLOGY (BEAKER) (test hkvz=873) Normal PLT MORPHOLOGY (BEAKER) (test iqkw=926) Normal RBC MORPHOLOGY (BEAKER) (test xvwt=329) Normal CBC W/PLT COUNT & AUTO [id number] 17:57:00 Test Item Value Reference Range Comments WHITE BLOOD CELL COUNT (BEAKER) (test pamg=734) 15.8 K/ L 3.5-10.5 RED BLOOD CELL COUNT (BEAKER) (test vlks=733) 3.93 M/ L 3.93-5.22 HEMOGLOBIN (BEAKER) (test xncm=716) 13.1 GM/DL 11.2-15.7 HEMATOCRIT (BEAKER) (test xdjd=262) 39.5 % 34.1-44.9 MEAN CORPUSCULAR VOLUME (BEAKER) (test vvgl=065) 100.5 fL 79.4-94.8 MEAN CORPUSCULAR HEMOGLOBIN (BEAKER) (test 33.3 pg 25.6-32.2 lvzm=370) MEAN CORPUSCULAR HEMOGLOBIN CONC (BEAKER) (test 33.2 GM/DL 32.2-35.5 whyo=538) RED CELL DISTRIBUTION WIDTH (BEAKER) (test 14.6 % 11.7-14.4 btjb=634) PLATELET COUNT (BEAKER) (test yslg=296) 234 K/CU MM 150-450 MEAN PLATELET VOLUME (BEAKER) (test cfjj=327) 9.5 fL 9.4-12.3 NUCLEATED RED BLOOD CELLS (BEAKER) (test 0 /100 WBC 0-0 ulck=999) NEUTROPHILS RELATIVE PERCENT (BEAKER) (test 87 % aavd=640) LYMPHOCYTES RELATIVE PERCENT (BEAKER) (test 7 % gtaq=910) MONOCYTES RELATIVE PERCENT (BEAKER) (test 5 % wqnd=782) EOSINOPHILS RELATIVE PERCENT (BEAKER) (test 0 % voma=909) BASOPHILS RELATIVE PERCENT (BEAKER) (test 0 % effp=117) NEUTROPHILS ABSOLUTE COUNT (BEAKER) (test 13.84 K/ L 1.56-6.13 suma=688) LYMPHOCYTES ABSOLUTE COUNT (BEAKER) (test 1.16 K/ L 1.18-3.74 xfhc=889) MONOCYTES ABSOLUTE COUNT (BEAKER) (test 0.72 K/ L 0.24-0.36 zmsm=021) EOSINOPHILS ABSOLUTE COUNT (BEAKER) (test 0.04 K/ L 0.04-0.36 lmqe=510) BASOPHILS ABSOLUTE COUNT (BEAKER) (test 0.03 K/ L 0.01-0.08 gwnw=680) IMMATURE GRANULOCYTES-RELATIVE PERCENT (BEAKER) 0 % 0-1 (test hlyf=5769) [id number] 17:14:00 Test Item Value Reference Range Comments PARTIAL THROMBOPLASTIN TIME (BEAKER) (test 21.4 seconds 22.5-36.0 bljt=028) CREATINE KINASE (CK), TOTAL AND [id number] 17:10:00 Test Item Value Reference Range Comments CREATINE KINASE TOTAL (BEAKER) (test vmzp=594) 39 U/L 29-200 CREATINE KINASE-MB (BEAKER) (test ptma=801) 1.2 ng/mL 0.0-6.6 CREATINE KINASE-MB INDEX (BEAKER) (test bchk=467) 3.1 % CK-MB Reference Range:<6.7 Normal6.7-10.0 Borderline>10.0 AbnormalTROPONIN [id number] 17:10:00 Test Item Value Reference Range Comments TROPONIN I (BEAKER) (test ebaf=670) < ng/mL 0.00-0.03 Troponin I (TnI) levels must be interpreted [...] failure, acidosis, acute neurological disease, and persistent tachyarrhythmia.[id number] 17:09:00 Test Item Value Reference Range Comments MAGNESIUM (BEAKER) (test 1.9 mg/dL 1.6-2.6 Specimen slightly hemolyzed jeyx=878) [id number] 17:09:00 Test Item Value Reference Range Comments PHOSPHORUS (BEAKER) (test 4.1 mg/dL 2.3-4.7 Specimen slightly hemolyzed xlzz=004) BASIC METABOLIC [id number] 17:09:00 Test Item Value Reference Range Comments SODIUM (BEAKER) (test 137 meq/L 136-145 jggp=902) POTASSIUM (BEAKER) (test 4.2 meq/L 3.5-5.1 Specimen slightly yqbr=157) hemolyzed CHLORIDE (BEAKER) (test 109 meq/L 98-107 djlq=690) CO2 (BEAKER) (test 19 meq/L 22-29 zfgr=886) BLOOD UREA NITROGEN 37 mg/dL 7-21 (BEAKER) (test glmu=667) CREATININE (BEAKER) (test 1.33 mg/dL 0.57-1.25 Specimen slightly agrs=603) hemolyzed GLUCOSE RANDOM (BEAKER) 105 mg/dL 70-105 (test spdu=410) CALCIUM (BEAKER) (test 8.6 mg/dL 8.4-10.2 xauj=148) EGFR (BEAKER) (test 41 mL/min/1.73 sq m ESTIMATED GFR IS NOT spof=9248) ACCURATE CREATININE CLEARANCE IN PREDICTING GLOMERULAR FILTRATION RATE. ESTIMATED GFR IS NOT APPLICABLE FOR DIALYSIS PATIENTS. HEPATIC FUNCTION [id number] 17:09:00 Test Item Value Reference Range Comments TOTAL PROTEIN (BEAKER) (test 6.5 gm/dL 6.0-8.3 Specimen slightly hemolyzed nszb=612) ALBUMIN (BEAKER) (test 3.4 g/dL 3.5-5.0 Specimen slightly hemolyzed bnix=4465) BILIRUBIN TOTAL (BEAKER) (test 0.8 mg/dL 0.2-1.2 Specimen slightly hemolyzed offe=870) BILIRUBIN DIRECT (BEAKER) (test 0.3 mg/dL 0.1-0.5 Specimen slightly hemolyzed evpq=050) ALKALINE PHOSPHATASE (BEAKER) 73 U/L 40-150 (test hzfv=125) AST (SGOT) (BEAKER) (test 16 U/L 5-34 Specimen slightly hemolyzed qjrd=225) ALT (SGPT) (BEAKER) (test 14 U/L 6-55 Specimen slightly hemolyzed wojx=139) PROTHROMBIN TIME/[id number] 16:48:00 Test Item Value Reference Range Comments PROTIME (BEAKER) (test qjnm=052) 13.9 seconds 11.7-14.7 INR (BEAKER) (test sink=099) 1.1 <=5.9 RECOMMENDED COUMADIN/WARFARIN INR THERAPY RANGESSTANDARD DOSE: 2.0 - 3.0 Includes: PROPHYLAXIS forvenous thrombosis, systemic embolization; TREATMENT for venous thrombosis and/or pulmonary embolus.HIGH RISK: Target INR is 2.5-3.5 for patients with mechanical heart valves.PROTHROMBIN TIME/[id number] 16:47: 00 Test Item Value Reference Range Comments PROTIME (BEAKER) (test xgws=368) 13.9 seconds 11.7-14.7 INR (BEAKER) (test uozr=498) 1.1 <=5.9 RECOMMENDED COUMADIN/WARFARIN INR THERAPY RANGESSTANDARD DOSE: 2.0 - 3.0 Includes: PROPHYLAXIS forvenous thrombosis, systemic embolization; TREATMENT for venous thrombosis and/or pulmonary embolus.HIGH RISK: Target INR is 2.5-3.5 for patients with mechanical heart valves.
[2017-10-06] MEDS ORDERED: KETOROLAC 30 MG/ML INJ ONE (09:11)
--- NOTE | 2017-10-06 10:26 | RAD REPORT ---
EXAM DESCRIPTION: [facility] Single View10/06/2017 9:31 am CLINICAL HISTORY: Chest pain COMPARISON: March 2017 FINDINGS: The lungs appear clear of acute infiltrate. The heart is normal size Mildly displaced fractures involve 2 mid to lower left anterior ribs. A pneumothorax is not seen
--- NOTE | 2017-10-06 10:27 | RAD REPORT ---
EXAM DESCRIPTION: RAD - Ribs Left - 10/06/2017 9:34 am CLINICAL HISTORY: Chest pain and rib pain status post fall FINDINGS: The lungs appear clear of acute infiltrate. The heart is normal size Mildly displaced fractures involve 3 mid to lower left anterior ribs. A pneumothorax is not seen
--- NOTE | 2017-10-06 10:36 | EDPHYS ---
Physician Documentation [facility] Name: Norma Boggs Age: 57 yrs Sex: Female : 1960 Arrival Date: 10/06/2017 Time: 08:34 Bed 19 Private MD: Titus Pena E ED Physician Marco A Bright HPI: 10/06 14:20 This 57 yrs old Female presents to ER via Wheelchair with complaints of Fall kdr Injury. 14:20 Details of fall: The patient fell from an upright position, while standing. Onset: The kdr symptoms/episode began/occurred suddenly, yesterday. Associated injuries: The patient sustained injury to the head, injury to the chest, specifically the left lateral anterior chest, pain with breathing, pain with movement. Severity of symptoms: At their worst the symptoms were mild, moderate, just prior to arrival, in the emergency department the symptoms are unchanged. The patient has not experienced similar symptoms in the past. The patient has not recently seen a physician. Historical: - Allergies: 08:53 No Known Allergies; ae1 - Home Meds: 08:53 Lyrica Oral [Active]; Lisinopril Oral [Active]; amlodipine oral [Active]; ae1 - PMHx: 08:53 carpal tunnel; Diverticulitis; Hypertension; Thyroid problem; bowel perforation; ae1 - PSHx: 08:53 bowel repair; ae1 - Immunization history: Last tetanus immunization: > 10 years ago. - Ebola Screening: : Patient negative for fever greater than or equal to 101.5 degrees Fahrenheit, and additional compatible Ebola Virus Disease symptoms Patient denies exposure to infectious person Patient denies travel to an Ebola-affected area in the 21 days before illness onset. - Social history:: Smoking status: Patient uses tobacco products, denies chronic smoking, but will smoke occasionally. ROS: 14:20 Constitutional: Negative for fever, chills, and weight loss, Eyes: Negative for injury, kdr pain, redness, and discharge, ENT: Negative for injury, pain, and discharge, Neck: Negative for injury, pain, and swelling, Respiratory: Negative for shortness of breath, cough, wheezing, and pleuritic chest pain, Abdomen/GI: Negative for abdominal pain, nausea, vomiting, diarrhea, and constipation, Back: Negative for injury and pain, : Negative for injury, bleeding, discharge, and swelling, MS/Extremity: Negative for injury and deformity, Neuro: Negative for headache, weakness, numbness, tingling, and seizure activity. Psych: Negative for depression, anxiety, suicide ideation, homicidal ideation, and hallucinations, Allergy/Immunology: Negative for hives, rash, and allergies, Endocrine: Negative for neck swelling, polydipsia, polyuria, polyphagia, and marked weight changes, Hematologic/Lymphatic: Negative for swollen nodes, abnormal bleeding, and unusual bruising. 14:20 Cardiovascular: Positive for chest pain, with cough, with movement, of the left lateral anterior chest. Exam: 14:20 Constitutional: This is a well developed, well nourished patient who is awake, alert, kdr and in no acute distress. Head/Face: Normocephalic, atraumatic. Eyes: Pupils equal round and reactive to light, extra-ocular motions intact. Lids and lashes normal. Conjunctiva and sclera are non-icteric and not injected. Cornea within normal limits. Periorbital areas with no swelling, redness, or edema. Neck: Trachea midline, no thyromegaly or masses palpated, and no cervical lymphadenopathy. Supple, full range of motion without nuchal rigidity, or vertebral point tenderness. No Meningismus. Chest/axilla: Normal chest wall appearance and motion. Nontender with no deformity. No lesions are appreciated. Respiratory: Lungs have equal breath sounds bilaterally, clear to auscultation and percussion. No rales, rhonchi or wheezes noted. No increased work of breathing, no retractions or nasal flaring. Abdomen/GI: Soft, non-tender, with normal bowel sounds. No distension or tympany. No guarding or rebound. No evidence of tenderness throughout. Back: No spinal tenderness. No costovertebral tenderness. Full range of motion. Skin: Warm, dry with normal turgor. Normal color with no rashes, no lesions, and no evidence of cellulitis. MS/ Extremity: Pulses equal, no cyanosis. Neurovascular intact. Full, normal range of motion. Neuro: Awake and alert, GCS 15, oriented to person, place, time, and situation. Cranial nerves II-XII grossly intact. Motor strength 5/5 in all extremities. Sensory grossly intact. Cerebellar exam normal. Normal gait. Psych: Awake, alert, with orientation to person, place and time. Behavior, mood, and affect are within normal limits. 14:20 Chest/axilla: Inspection: normal, Palpation: crepitus, is not appreciated, tenderness, that is moderate, of the left lateral anterior chest. Vital Signs: 08:54 BP 128 / 85; Pulse 58; Resp 17 S; Temp 97.6(O); Pulse Ox 99% on R/A; Weight 75.3 kg (R);ae1 09:37 BP 126 / 84; Pulse 57; Resp 18 S; Pulse Ox 100% on R/A; ae1 Eugenia Coma Score: 08:54 Eye Response: spontaneous(4). Verbal Response: oriented(5). Motor Response: obeys ae1 commands(6). Total: 15. Trauma Score (Adult): 08:54 Eye Response: spontaneous(1); Verbal Response: oriented(1); Motor Response: obeys ae1 commands(2); Systolic BP: > 89 mm Hg(4); Respiratory Rate: 10 to 29 per min(4); Eugenia Score: 15; Trauma Score: 12 MDM: 10:35 Patient medically screened. kdr 14:20 Data reviewed: vital signs, nurses notes, radiologic studies. Counseling: I had a kdr detailed discussion with the patient and/or guardian regarding: the historical points, exam findings, and any diagnostic results supporting the discharge/admit diagnosis, radiology results, the need for outpatient follow up. 10/06 08:52 Order name: CXR XRAY; Complete Time: 10:33 kdr 10/06 08:52 Order name: Ribs Left XRAY; Complete Time: 10:33 kdr Administered Medications: 07:14 Drug: TORadol 60 mg Route: IM; Site: left gluteus; ae1 10:50 Follow up: Response: No adverse reaction aa5 10:53 Drug: Tetanus-Diphtheria Toxoid Adult 0.5 ml {Order Make Up Clerk: [employer]. Exp: aa5 01/06/2020. Lot #: [id number]. } Route: IM; Site: left deltoid; 11:11 Follow up: Response: No adverse reaction aa5 Disposition: 10/06/17 10:35 Discharged to Home. Impression: Multiple fractures of ribs, left side. - Condition is Stable. - Discharge Instructions: Rib Fracture, [id number]-[id number]. - Prescriptions for Tylenol- Codeine #3 300-30 mg Oral Tablet - take 2 tablets by ORAL route every 6 hours As needed; 20 tablet. Cyclobenzaprine 10 mg Oral Tablet - take 1 tablet by ORAL route every 8 hours As needed; 20 tablet. - Medication Reconciliation Form, Thank You Letter, Prescription Opioid Use form. - Follow up: Titus Pena MD; When: 2 - 3 days; Reason: If symptoms return, Further diagnostic work-up, Recheck today's complaints, Continuance of care, Re-evaluation by your physician. - Problem is new. - Symptoms have improved. Signatures: Dispatcher [employer] EDMS Marco A Bright MD MD kdr Sheila Min RN RN aa5 Jadon Mast RN RN ae1 Corrections: (The following items were deleted from the chart) 10:49 10:35 10/06/2017 10:35 Discharged to Home. Impression: Multiple fractures of ribs, left ae1 side. Condition is Stable. Forms are Medication Reconciliation Form, Thank You Letter, Antibiotic Education, Prescription Opioid Use. Follow up: Titus Pena; When: 2 - 3 days; Reason: If symptoms return, Further diagnostic work-up, Recheck today's complaints, Continuance of care, Re-evaluation by your physician. Problem is new. Symptoms have improved. kdr 11:12 10:49 10/06/2017 10:35 Discharged to Home. Impression: Multiple fractures of ribs, left aa5 side. Condition is Stable. Discharge Instructions: Rib Fracture, [id number]. Prescriptions for Tylenol-Codeine #3 300-30 mg Oral Tablet - take 2 tablets by ORAL route every 6 hours As needed; 20 tablet, Cyclobenzaprine 10 mg Oral Tablet - take 1 tablet by ORAL route every 8 hours As needed; 20 tablet. and Forms are Medication Reconciliation Form, Thank You Letter, Prescription Opioid Use. Follow up: Titus Pena; When: 2 - 3 days; Reason: If symptoms return, Further diagnostic work-up, Recheck today's complaints, Continuance of care, Re-evaluation by your physician. Problem is new. Symptoms have improved. ae1
--- NOTE | 2017-10-06 10:36 | ER ---
Nurse's Notes [facility] Name: Norma Boggs Age: 57 yrs Sex: Female : 1960 Arrival Date: 10/06/2017 Time: 08:34 Bed 19 Private MD: Titus Pena E Diagnosis: Multiple fractures of ribs, left side Presentation: 10/06 08:47 Presenting complaint: Patient states: Patient reports falling the previous evening ae1 after tripping over her mother's oxygen tank. Patient reports striking her head, denies LOC, report left "rib" pain, headache and nose pain. Care prior to arrival: Medication(s) given: Tylenol. Mechanism of Injury: Fall. 08:47 Method Of Arrival: Wheelchair ae1 08:55 Transition of care: patient was not received from another setting of care. Onset of ae1 symptoms was October 05, 2017. Risk Assessment: Do you want to hurt yourself or someone else? Patient reports no desire to harm self or others. Initial Sepsis Screen: Does the patient meet any 2 criteria? No. Patient's initial sepsis screen is negative. Does the patient have a suspected source of infection? No. Patient's initial sepsis screen is negative. 08:55 Acuity: ABDULLAHI 4 ae1 Historical: - Allergies: 08:53 No Known Allergies; ae1 - Home Meds: 08:53 Lyrica Oral [Active]; Lisinopril Oral [Active]; amlodipine oral [Active]; ae1 - PMHx: 08:53 carpal tunnel; Diverticulitis; Hypertension; Thyroid problem; bowel perforation; ae1 - PSHx: 08:53 bowel repair; ae1 - Immunization history: Last tetanus immunization: > 10 years ago. - Ebola Screening: : Patient negative for fever greater than or equal to 101.5 degrees Fahrenheit, and additional compatible Ebola Virus Disease symptoms Patient denies exposure to infectious person Patient denies travel to an Ebola-affected area in the 21 days before illness onset. - Social history:: Smoking status: Patient uses tobacco products, denies chronic smoking, but will smoke occasionally. Screenin:58 Abuse screen: Denies threats or abuse. Nutritional screening: No deficits noted. ae1 Tuberculosis screening: No symptoms or risk factors identified. Fall Risk Fall in past 12 months (25 points). No secondary diagnosis (0 pts). No IV (0 pts). Ambulatory Aid- None/Bed Rest/Nurse Assist (0 pts). Gait- Normal/Bed Rest/Wheelchair (0 pts) Mental Status- Oriented to own ability (0 pts). Primary Survey: 08:56 A: Airway: patent. Breathing/Chest: Respiratory pattern: regular, Respiratory effort: ae1 spontaneous, shallow. Circulation:. Disability Alert. Assessment: 08:59 General: Appears uncomfortable, Behavior is cooperative, anxious. Pain: Complains of ae1 pain in diaphragm. Pain: Noted to be grimacing, guarding, resistant to movement. Neuro: Level of Consciousness is awake, alert, obeys commands, Oriented to person, place, time, situation. EENT: Abrasion to the bridge of nose, dried and healing, no bleeding at this time. . Cardiovascular: Heart tones S1 S2 present Patient's skin is warm and dry. Respiratory: Airway is patent Respiratory effort is even, unlabored, shallow, Respiratory pattern is regular, symmetrical. GI: No signs and/or symptoms were reported involving the gastrointestinal system. Abdomen is round. : No signs and/or symptoms were reported regarding the genitourinary system. Derm: Wound noted right parietal area Other: healing laceration approx. 1.5 inches in length, no bleeding at this time. Musculoskeletal: 10:50 Reassessment: Patient is alert, oriented x 3, equal unlabored respirations, skin aa5 warm/dry/pink. Dr. Bright at bedside. 10:53 Reassessment: Pt was given incentive spirometer per MD. Pt educated on how to use aa5 incentive spirometer to prevent Pneumonia, pt verbalized understanding. . Vital Signs: 08:54 BP 128 / 85; Pulse 58; Resp 17 S; Temp 97.6(O); Pulse Ox 99% on R/A; Weight 75.3 kg (R);ae1 09:37 BP 126 / 84; Pulse 57; Resp 18 S; Pulse Ox 100% on R/A; ae1 Eugenia Coma Score: 08:54 Eye Response: spontaneous(4). Verbal Response: oriented(5). Motor Response: obeys ae1 commands(6). Total: 15. Trauma Score (Adult): 08:54 Eye Response: spontaneous(1); Verbal Response: oriented(1); Motor Response: obeys ae1 commands(2); Systolic BP: > 89 mm Hg(4); Respiratory Rate: 10 to 29 per min(4); Eugenia Score: 15; Trauma Score: 12 ED Course: 08:34 Patient arrived in ED. mr 08:34 Titus Pena MD is Private Physician. mr 08:34 Marco A Bright MD is Attending Physician. kdr 08:37 Fermin Meneses RN is Primary Nurse. jl7 08:42 Marco A Bright MD is Attending Physician. kdr 08:55 Triage completed. ae1 08:56 served as song writer during medical examination. ae1 08:57 Patient maintains SpO2 saturation greater than 95% on room air. ae1 08:57 Arm band placed on right wrist. ae1 08:58 Thermoregulation: warm blanket given to patient. ae1 08:59 Bed in low position. Call light in reach. Side rails up X 1. Pulse ox on. NIBP on. Warm ae1 blanket given. 09:04 Jadon Mast RN is Primary Nurse. ae1 09:18 Patient moved to radiology via wheelchair. ae1 09:30 CXR XRAY In Process Unspecified. EDMS 09:30 Ribs Left XRAY In Process Unspecified. EDMS 10:34 Titus Pena MD is Referral Physician. kdr 10:52 Primary Nurse role handed off by Jadon Mast, IGNACIO ae1 10:56 Jadon Mast, RN is Primary Nurse. ae1 11:13 Patient did not have IV access during this emergency room visit. aa5 Administered Medications: 07:14 Drug: TORadol 60 mg Route: IM; Site: left gluteus; ae1 10:50 Follow up: Response: No adverse reaction aa5 10:53 Drug: Tetanus-Diphtheria Toxoid Adult 0.5 ml {Territory Supervisor: [employer]. Exp: aa5 01/06/2020. Lot #: [id number]. } Route: IM; Site: left deltoid; 11:11 Follow up: Response: No adverse reaction aa5 Outcome: 10:35 Discharge ordered by . kdr 11:11 Discharged to home ambulatory. aa5 11:11 Condition: stable 11:11 Discharge instructions given to patient, Instructed on discharge instructions, follow up and referral plans. medication usage, Demonstrated understanding of instructions, follow-up care, medications, Prescriptions given X 2. 11:12 Patient left the ED. aa5 Signatures: Dispatcher [employer] EDMS Marco A Bright MD MD kdr Rivera, Maria mr Min, Sheila, RN RN aa5 Jadon Mast RN RN ae1 Fermin Meneses RN RN jl7 Corrections: (The following items were deleted from the chart) 10:55 10:49 Patient left the ED. ae1 aa5
[2017-10-06] MEDS ORDERED: TETANUS & DIPHTHERIA TOX,ADULT 0.5 ML VIAL ONE (10:52)
== END 2017-10-06 11:12 | disposition home or self-care (01) ==
LOC: ER 08:31
DX: S22.42XA Multiple fractures of ribs, left side, initial encounter for closed fracture (principal); W18.39XA Other fall on same level, initial encounter; Y92.019 Unspecified place in single-family (private) house as the place of occurrence of the external cause; I10 Essential (primary) hypertension; F17.200 Nicotine dependence, unspecified, uncomplicated; Z23 Encounter for immunization
CPT/HCPCS: 71045; 90714; 96372; 99284

== ENCOUNTER 2018-05-11 03:07 | Emergency (ER) | payer SELFPAY ==
--- OUTSIDE RECORDS SUMMARY | 2018-05-11 03:09 | XMS REPORT | Clinical Summary ---
:1960 Author Organization [facility] Address [address] [place] [address] Care Team Providers Name Role Phone Unavailable Primary Care Provider Unavailable Allergies No Known Allergies Medications Medication Sig Dispensed Refills Start Date End Date Status ALPRAZolam (XANAX) 1 MG Take 1 mg by 0 Active tabletIndications: mouth every night anxiety as needed for Anxiety. lisinopril-hydroCHLOROt Take 1 tablet by 0 Active hiazide mouth daily. (PRINZIDE,ZESTORETIC) 20-25 mg per tablet amLODIPine (NORVASC) 5 Take 5 mg by 0 Active MG tablet mouth daily. gabapentin (NEURONTIN) Take 600 mg by 0 Active 600 MG tablet mouth 3 (three) times daily. traMADol (ULTRAM) 50 mg Take 1 tablet (50 30 tablet 0 03/21/2017 Active tablet mg total) by mouth every 8 (eight) hours as needed for Pain. Max Daily Amount: 150 mg pantoprazole (PROTONIX) Take 1 tablet (40 30 tablet 0 03/22/2017 Active 40 MG tablet mg total) by mouth daily. 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 Last Filed Vital Signs Not on file Plan of Treatment Not on file Results Not on fileafter 05/10/2017 Insurance Payer Benefit Plan / Group Subscriber ID Type Phone Address [facility] CHO[facility] xxxxxxxxxxxx HMO/POS [phone] CHOICE EXCHANGE Advance Directives For more information, please contact:[address] [phone] Code Status Date Activated Date Inactivated Comments Full Code 03/17/2017 3:19 PM 03/21/2017 9:59 PM This code status was determined by: Patient Name Relationship Healthcare Agent Relationship Phone Hannah Boggs Daughter First alternate healthcare agent [phone] Scarlett Olmstead Other Second alternate healthcare agent [phone]
--- OUTSIDE RECORDS SUMMARY | 2018-05-11 03:09 | XMS REPORT ---
:1960 [facility] Address [address] [place] [address] Dr. Freeman [address] [place] [address] Care Team Providers Name Role Phone ALETA BLACKWELL Unavailable Unavailable Problems This patient has no known problems. Allergies, Adverse Reactions, Alerts This patient has no known allergies or adverse reactions. Medications This patient has no known medications. Results Test Description Test Time Test Comments Text Results Atomic Results Result Comments BLOOD CULTURE 2017-03-22 23:00:00 Test Item Value Reference Range Comments CULTURE (BEAKER) (test vwlo=2071) No growth in 5 days BLOOD [id number] 23:00:00 Test Item Value Reference Range Comments CULTURE (BEAKER) (test aiuz=5626) No growth in 5 days ANAEROBIC [id number] 04:03:00 Test Item Value Reference Range Comments CULTURE (BEAKER) (test ygsm=8636) No anaerobes isolated TISSUE [id number] 18:46:00Surgical Pathology Report Case: [id number] Authorizing Provider: Aleta Blackwell MD Collected: 03/17/20172024 Ordering Location: [address] Received: 03/18/2017 0801 Cardiovascular Pathologist: Sania Chambers MD Specimen: Gastric, Gastric antrum Biopsy This addendum is being issued to report the GMS stain.RESULT:- GMS stain highlights non-branching fungal pseudohyphal elements. Morphologically, these are suggestive of Amber species. - It is possible that this could represent colonization of the mucosa post- ulceration- Clinical and radiologic correlation is recommended.[id number] electronically signed by Sania Chambers MD on 03/21/2017 at 6:46 PMA. STOMACH,ANTRUM, BIOPSY: - GASTRIC WALL WITH ULCERATION AND MARKED ACUTE AND CHRONIC INFLAMMATION - NEGATIVE FOR MALIGNANCY - SEE COMMENT AND MICROSCOPIC DESCRIPTION Signing Pathologist Direct Phone Line: [phone] signed by Sania Chambers MD on 03/21/2017 at 5:51 PMPreliminary result electronically signed by Sania Chambers MD on 2016 at 10:07 AMGiven the presence of non-specific refractile polarizable fragments in the superficial mucosa and deeper gastric wall, medication induced gastritis and subsequent ulceration is a possibility. Possibility of a contaminant cannot be entirely excluded. Clinical and radiologic correlation is recommended.[id number] perforationGastric antrum biopsyA. Received in formalin labeled [...] developed and its performance characteristics determined by [facility], Pathology Laboratory. It has not been cleared [...] to perform high complexity clinical laboratory testing.CT, [id number] 18:07:00Please give IV and ORAL contrast to [...] MDReport Verified Date/Time: 03/21/2017 18:07:08 Reading Location: [facility] B1 C013Y CT Body Reading Room POCT-GLUCOSE [id number] 17:34:00 Test Item Value Reference Range Comments POC-GLUCOSE METER (BEAKER) 111 mg/dL 70-110 TESTED AT [address] (test oejk=2831) [place] [address] SURGICALLY OBTAINED CULTURE + GRAM [id number] 15:37:00 Test Item Value Reference Range Comments CULTURE (BEAKER) (test 1+ Amber knls=9019) albicans GRAM STAIN RESULT 2+ White blood (BEAKER) (test cells seen nkzm=0433) GRAM STAIN RESULT No organisms seen (BEAKER) (test clzr=417608) CULTURE (BEAKER) (test szqc=4347) 5-Flurocytosine (test lgyy=698) Caspofungin acetate (test kfsm=053) Fluconazole (test uqal=621) Itraconazole (test nouv=479) Micafungin (test onah=085) Voriconazole (test mmfy=774) Amphotericin B (test Susceptible >0-0 , No arns=274) Interpretations Established <=0 or >0 Posaconazole (test Susceptible >0-0 , No czcf=893) Interpretations Established <=0 or >0 GRAM STAIN RESULT No organisms seen (BEAKER) (test pche=640825) POCT-GLUCOSE [id number] 12:25:00 Test Item Value Reference Range Comments POC-GLUCOSE METER (BEAKER) 88 mg/dL 70-110 TESTED AT [address] (test ltvc=0205) [place] [address] [id number] 05:41:00 Test Item Value Reference Range Comments PHOSPHORUS (BEAKER) (test yohq=988) 2.8 mg/dL 2.3-4.7 [id number] 05:41:00 Test Item Value Reference Range Comments MAGNESIUM (BEAKER) (test nqxe=272) 2.1 mg/dL 1.6-2.6 BASIC METABOLIC [id number] 05:41:00 Test Item Value Reference Range Comments SODIUM (BEAKER) (test 137 meq/L 136-145 wplq=758) POTASSIUM (BEAKER) (test 2.9 meq/L 3.5-5.1 oxsw=526) CHLORIDE (BEAKER) (test 101 meq/L 98-107 wnkx=426) CO2 (BEAKER) (test 25 meq/L 22-29 liij=137) BLOOD UREA NITROGEN 9 mg/dL 7-21 (BEAKER) (test htzv=420) CREATININE (BEAKER) (test 0.69 mg/dL 0.57-1.25 kxrc=789) GLUCOSE RANDOM (BEAKER) 93 mg/dL 70-105 (test xprk=863) CALCIUM (BEAKER) (test 8.8 mg/dL 8.4-10.2 akkg=946) EGFR (BEAKER) (test 88 mL/min/1.73 sq m ESTIMATED GFR IS NOT plmu=0956) ACCURATE CREATININE CLEARANCE IN PREDICTING GLOMERULAR FILTRATION RATE. ESTIMATED GFR IS NOT APPLICABLE FOR DIALYSIS PATIENTS. [place] W/PLT COUNT & AUTO [id number] 05:34:00 Test Item Value Reference Range Comments WHITE BLOOD CELL COUNT (BEAKER) (test rvrr=222) 13.1 K/ L 3.5-10.5 RED BLOOD CELL COUNT (BEAKER) (test ekxv=859) 3.74 M/ L 3.93-5.22 HEMOGLOBIN (BEAKER) (test gkhd=166) 12.3 GM/DL 11.2-15.7 HEMATOCRIT (BEAKER) (test zmdn=987) 35.7 % 34.1-44.9 MEAN CORPUSCULAR VOLUME (BEAKER) (test maph=318) 95.5 fL 79.4-94.8 MEAN CORPUSCULAR HEMOGLOBIN (BEAKER) (test 32.9 pg 25.6-32.2 prql=325) MEAN CORPUSCULAR HEMOGLOBIN CONC (BEAKER) (test 34.5 GM/DL 32.2-35.5 jzyi=700) RED CELL DISTRIBUTION WIDTH (BEAKER) (test 13.8 % 11.7-14.4 gwei=475) PLATELET COUNT (BEAKER) (test rcgb=242) 251 K/CU MM 150-450 MEAN PLATELET VOLUME (BEAKER) (test jfja=947) 8.9 fL 9.4-12.3 NUCLEATED RED BLOOD CELLS (BEAKER) (test 0 /100 WBC 0-0 pslp=905) NEUTROPHILS RELATIVE PERCENT (BEAKER) (test 77 % sxbz=994) LYMPHOCYTES RELATIVE PERCENT (BEAKER) (test 12 % gjye=479) MONOCYTES RELATIVE PERCENT (BEAKER) (test 5 % vbzu=445) EOSINOPHILS RELATIVE PERCENT (BEAKER) (test 5 % pakn=149) BASOPHILS RELATIVE PERCENT (BEAKER) (test 0 % ydjv=335) NEUTROPHILS ABSOLUTE COUNT (BEAKER) (test 10.05 K/ L 1.56-6.13 wjjf=696) LYMPHOCYTES ABSOLUTE COUNT (BEAKER) (test 1.54 K/ L 1.18-3.74 quzs=890) MONOCYTES ABSOLUTE COUNT (BEAKER) (test 0.67 K/ L 0.24-0.36 jjep=537) EOSINOPHILS ABSOLUTE COUNT (BEAKER) (test 0.61 K/ L 0.04-0.36 zale=562) BASOPHILS ABSOLUTE COUNT (BEAKER) (test 0.03 K/ L 0.01-0.08 pvbz=653) IMMATURE GRANULOCYTES-RELATIVE PERCENT (BEAKER) 1 % 0-1 (test anls=0499) POCT-GLUCOSE [id number] 05:14:00 Test Item Value Reference Range Comments POC-GLUCOSE METER (BEAKER) 98 mg/dL 70-110 TESTED AT [address] (test ihts=2768) [place] [address] POCT-GLUCOSE [id number] 00:28:00 Test Item Value Reference Range Comments POC-GLUCOSE METER (BEAKER) 104 mg/dL 70-110 TESTED AT [address] (test zpmd=7174) [place] [address] POCT-GLUCOSE [id number] 17:13:00 Test Item Value Reference Range Comments POC-GLUCOSE METER (BEAKER) 90 mg/dL 70-110 TESTED AT [address] (test mppe=1563) [place] [address] POCT-GLUCOSE [id number] 12:20:00 Test Item Value Reference Range Comments POC-GLUCOSE METER (BEAKER) 101 mg/dL 70-110 TESTED AT [address] (test rrag=4094) [place] [address] [id number] 06:21:00 Test Item Value Reference Range Comments PHOSPHORUS (BEAKER) (test hrwb=948) 2.5 mg/dL 2.3-4.7 [id number] 06:21:00 Test Item Value Reference Range Comments MAGNESIUM (BEAKER) (test emhl=318) 1.8 mg/dL 1.6-2.6 BASIC METABOLIC [id number] 06:21:00 Test Item Value Reference Range Comments SODIUM (BEAKER) (test 139 meq/L 136-145 czdf=746) POTASSIUM (BEAKER) (test 2.9 meq/L 3.5-5.1 kohy=374) CHLORIDE (BEAKER) (test 105 meq/L 98-107 ytmc=471) CO2 (BEAKER) (test 22 meq/L 22-29 lzqv=218) BLOOD UREA NITROGEN 12 mg/dL 7-21 (BEAKER) (test qjtm=252) CREATININE (BEAKER) (test 0.72 mg/dL 0.57-1.25 buyn=890) GLUCOSE RANDOM (BEAKER) 85 mg/dL 70-105 (test znnx=511) CALCIUM (BEAKER) (test 8.4 mg/dL 8.4-10.2 fszw=686) EGFR (BEAKER) (test 84 mL/min/1.73 sq m ESTIMATED GFR IS NOT kvml=7420) ACCURATE CREATININE CLEARANCE IN PREDICTING GLOMERULAR FILTRATION RATE. ESTIMATED GFR IS NOT APPLICABLE FOR DIALYSIS PATIENTS. CBC W/PLT COUNT & AUTO [id number] 06:05:00 Test Item Value Reference Range Comments WHITE BLOOD CELL COUNT (BEAKER) (test uofi=610) 16.4 K/ L 3.5-10.5 RED BLOOD CELL COUNT (BEAKER) (test pgfu=979) 3.88 M/ L 3.93-5.22 HEMOGLOBIN (BEAKER) (test aftu=444) 12.6 GM/DL 11.2-15.7 HEMATOCRIT (BEAKER) (test wvfr=771) 37.5 % 34.1-44.9 MEAN CORPUSCULAR VOLUME (BEAKER) (test bjpl=593) 96.6 fL 79.4-94.8 MEAN CORPUSCULAR HEMOGLOBIN (BEAKER) (test 32.5 pg 25.6-32.2 dukh=232) MEAN CORPUSCULAR HEMOGLOBIN CONC (BEAKER) (test 33.6 GM/DL 32.2-35.5 qrhp=561) RED CELL DISTRIBUTION WIDTH (BEAKER) (test 14.1 % 11.7-14.4 musq=712) PLATELET COUNT (BEAKER) (test lrnm=531) 210 K/CU MM 150-450 MEAN PLATELET VOLUME (BEAKER) (test ooti=063) 9.1 fL 9.4-12.3 NUCLEATED RED BLOOD CELLS (BEAKER) (test 0 /100 WBC 0-0 fdhb=808) NEUTROPHILS RELATIVE PERCENT (BEAKER) (test 82 % zytp=184) LYMPHOCYTES RELATIVE PERCENT (BEAKER) (test 10 % pgac=370) MONOCYTES RELATIVE PERCENT (BEAKER) (test 3 % snjn=579) EOSINOPHILS RELATIVE PERCENT (BEAKER) (test 4 % joee=016) BASOPHILS RELATIVE PERCENT (BEAKER) (test 0 % vlwv=541) NEUTROPHILS ABSOLUTE COUNT (BEAKER) (test 13.48 K/ L 1.56-6.13 nxzm=244) LYMPHOCYTES ABSOLUTE COUNT (BEAKER) (test 1.56 K/ L 1.18-3.74 likb=050) MONOCYTES ABSOLUTE COUNT (BEAKER) (test 0.45 K/ L 0.24-0.36 gtmc=233) EOSINOPHILS ABSOLUTE COUNT (BEAKER) (test 0.69 K/ L 0.04-0.36 loui=583) BASOPHILS ABSOLUTE COUNT (BEAKER) (test 0.03 K/ L 0.01-0.08 demp=480) IMMATURE GRANULOCYTES-RELATIVE PERCENT (BEAKER) 1 % 0-1 (test jxqf=6292) POCT-GLUCOSE [id number] 05:44:00 Test Item Value Reference Range Comments POC-GLUCOSE METER (BEAKER) 99 mg/dL 70-110 TESTED AT [address] (test jtwk=6476) [place] [id number] POCT-GLUCOSE [id number] 23:08:00 Test Item Value Reference Range Comments POC-GLUCOSE METER (BEAKER) 107 mg/dL 70-110 TESTED AT [address] (test katm=2856) [facility] [place] [address] POCT-GLUCOSE [id number] 17:56:00 Test Item Value Reference Range Comments POC-GLUCOSE METER (BEAKER) 102 mg/dL 70-110 TESTED AT [address] (test dmje=4468) [place] [address] POCT-GLUCOSE [id number] 13:00:00 Test Item Value Reference Range Comments POC-GLUCOSE METER (BEAKER) 119 mg/dL 70-110 TESTED AT [address] (test thng=0924) [facility] [place] [address] [id number] 08:26:00 Test Item Value Reference Range Comments PHOSPHORUS (BEAKER) (test ojvh=177) 2.0 mg/dL 2.3-4.7 [id number] 08:26:00 Test Item Value Reference Range Comments MAGNESIUM (BEAKER) (test edpo=079) 2.2 mg/dL 1.6-2.6 BASIC METABOLIC [id number] 08:26:00 Test Item Value Reference Range Comments SODIUM (BEAKER) (test 141 meq/L 136-145 fhtq=898) POTASSIUM (BEAKER) (test 3.6 meq/L 3.5-5.1 nvjn=704) CHLORIDE (BEAKER) (test 108 meq/L 98-107 eqba=732) CO2 (BEAKER) (test 21 meq/L 22-29 zykl=192) BLOOD UREA NITROGEN 19 mg/dL 7-21 (BEAKER) (test irit=915) CREATININE (BEAKER) (test 0.87 mg/dL 0.57-1.25 fslt=908) GLUCOSE RANDOM (BEAKER) 91 mg/dL 70-105 (test dfxp=102) CALCIUM (BEAKER) (test 8.5 mg/dL 8.4-10.2 yyvb=674) EGFR (BEAKER) (test 68 mL/min/1.73 sq m ESTIMATED GFR IS NOT wniy=0731) ACCURATE CREATININE CLEARANCE IN PREDICTING GLOMERULAR FILTRATION RATE. ESTIMATED GFR IS NOT APPLICABLE FOR DIALYSIS PATIENTS. CBC W/PLT COUNT & AUTO [id number] 08:18:00 Test Item Value Reference Range Comments WHITE BLOOD CELL COUNT (BEAKER) (test epgx=453) 15.8 K/ L 3.5-10.5 RED BLOOD CELL COUNT (BEAKER) (test iqni=763) 4.15 M/ L 3.93-5.22 HEMOGLOBIN (BEAKER) (test eyqf=481) 13.8 GM/DL 11.2-15.7 HEMATOCRIT (BEAKER) (test xzgg=529) 41.4 % 34.1-44.9 MEAN CORPUSCULAR VOLUME (BEAKER) (test osqa=848) 99.8 fL 79.4-94.8 MEAN CORPUSCULAR HEMOGLOBIN (BEAKER) (test 33.3 pg 25.6-32.2 aqpm=154) MEAN CORPUSCULAR HEMOGLOBIN CONC (BEAKER) (test 33.3 GM/DL 32.2-35.5 verw=045) RED CELL DISTRIBUTION WIDTH (BEAKER) (test 14.7 % 11.7-14.4 djmk=162) PLATELET COUNT (BEAKER) (test ruws=521) 210 K/CU MM 150-450 MEAN PLATELET VOLUME (BEAKER) (test tbqp=602) 9.6 fL 9.4-12.3 NUCLEATED RED BLOOD CELLS (BEAKER) (test 0 /100 WBC 0-0 uvup=492) NEUTROPHILS RELATIVE PERCENT (BEAKER) (test 86 % hced=395) LYMPHOCYTES RELATIVE PERCENT (BEAKER) (test 8 % vwpy=401) MONOCYTES RELATIVE PERCENT (BEAKER) (test 3 % ypio=363) EOSINOPHILS RELATIVE PERCENT (BEAKER) (test 2 % mncf=683) BASOPHILS RELATIVE PERCENT (BEAKER) (test 0 % zzwg=683) NEUTROPHILS ABSOLUTE COUNT (BEAKER) (test 13.65 K/ L 1.56-6.13 lhzv=020) LYMPHOCYTES ABSOLUTE COUNT (BEAKER) (test 1.22 K/ L 1.18-3.74 npne=529) MONOCYTES ABSOLUTE COUNT (BEAKER) (test 0.51 K/ L 0.24-0.36 kvfw=273) EOSINOPHILS ABSOLUTE COUNT (BEAKER) (test 0.26 K/ L 0.04-0.36 sjvf=364) BASOPHILS ABSOLUTE COUNT (BEAKER) (test 0.03 K/ L 0.01-0.08 utva=966) IMMATURE GRANULOCYTES-RELATIVE PERCENT (BEAKER) 1 % 0-1 (test oxkn=7886) POCT-GLUCOSE [id number] 07:31:00 Test Item Value Reference Range Comments POC-GLUCOSE METER (BEAKER) 104 mg/dL 70-110 TESTED AT [address] (test oilf=9753) [facility] [place] [address] POCT-GLUCOSE [id number] 00:39:00 Test Item Value Reference Range Comments POC-GLUCOSE METER (BEAKER) 91 mg/dL 70-110 TESTED AT [address] (test zyrb=6262) [facility] [place] [address] POCT-GLUCOSE [id number] 17:36:00 Test Item Value Reference Range Comments POC-GLUCOSE METER (BEAKER) 81 mg/dL 70-110 TESTED AT [facility] [address] [facility] (test umgp=7593) [facility] [place] [address] POCT-GLUCOSE [id number] 11:26:00 Test Item Value Reference Range Comments POC-GLUCOSE METER (BEAKER) 105 mg/dL 70-110 TESTED AT [address] (test crzl=1360) [facility] [place] [address] POCT-GLUCOSE [id number] 05:58:00 Test Item Value Reference Range Comments POC-GLUCOSE METER (BEAKER) 124 mg/dL 70-110 TESTED AT [address] (test ikri=3526) [facility] [place] [address] [id number] 03:33:00 Test Item Value Reference Range Comments PHOSPHORUS (BEAKER) (test rncq=960) 4.9 mg/dL 2.3-4.7 [id number] 03:33:00 Test Item Value Reference Range Comments MAGNESIUM (BEAKER) (test npgr=385) 1.7 mg/dL 1.6-2.6 BASIC METABOLIC [id number] 03:33:00 Test Item Value Reference Range Comments SODIUM (BEAKER) (test 138 meq/L 136-145 cluo=753) POTASSIUM (BEAKER) (test 4.5 meq/L 3.5-5.1 rqvu=690) CHLORIDE (BEAKER) (test 110 meq/L 98-107 fhmn=661) CO2 (BEAKER) (test 20 meq/L 22-29 lpgp=076) BLOOD UREA NITROGEN 29 mg/dL 7-21 (BEAKER) (test wwpf=788) CREATININE (BEAKER) (test 1.12 mg/dL 0.57-1.25 apuf=084) GLUCOSE RANDOM (BEAKER) 124 mg/dL 70-105 (test eebd=494) CALCIUM (BEAKER) (test 8.1 mg/dL 8.4-10.2 xkxz=448) EGFR (BEAKER) (test 51 mL/min/1.73 sq m ESTIMATED GFR IS NOT fcbz=7168) ACCURATE CREATININE CLEARANCE IN PREDICTING GLOMERULAR FILTRATION RATE. ESTIMATED GFR IS NOT APPLICABLE FOR DIALYSIS PATIENTS. CBC W/PLT COUNT & AUTO [id number] 03:22:00 Test Item Value Reference Range Comments WHITE BLOOD CELL COUNT (BEAKER) (test qwny=330) 19.3 K/ L 3.5-10.5 RED BLOOD CELL COUNT (BEAKER) (test hzot=842) 3.62 M/ L 3.93-5.22 HEMOGLOBIN (BEAKER) (test qmwo=690) 11.9 GM/DL 11.2-15.7 HEMATOCRIT (BEAKER) (test yyuq=665) 36.5 % 34.1-44.9 MEAN CORPUSCULAR VOLUME (BEAKER) (test busk=321) 100.8 fL 79.4-94.8 MEAN CORPUSCULAR HEMOGLOBIN (BEAKER) (test 32.9 pg 25.6-32.2 ricg=610) MEAN CORPUSCULAR HEMOGLOBIN CONC (BEAKER) (test 32.6 GM/DL 32.2-35.5 uzqn=661) RED CELL DISTRIBUTION WIDTH (BEAKER) (test 14.6 % 11.7-14.4 xyer=195) PLATELET COUNT (BEAKER) (test zrss=372) 218 K/CU MM 150-450 MEAN PLATELET VOLUME (BEAKER) (test ztsm=523) 9.3 fL 9.4-12.3 NUCLEATED RED BLOOD CELLS (BEAKER) (test 0 /100 WBC 0-0 kwuc=402) NEUTROPHILS RELATIVE PERCENT (BEAKER) (test 94 % bsdx=209) LYMPHOCYTES RELATIVE PERCENT (BEAKER) (test 3 % fpok=629) MONOCYTES RELATIVE PERCENT (BEAKER) (test 3 % rztg=806) EOSINOPHILS RELATIVE PERCENT (BEAKER) (test 0 % scea=291) BASOPHILS RELATIVE PERCENT (BEAKER) (test 0 % agyu=284) NEUTROPHILS ABSOLUTE COUNT (BEAKER) (test 18.11 K/ L 1.56-6.13 jhxx=361) LYMPHOCYTES ABSOLUTE COUNT (BEAKER) (test 0.55 K/ L 1.18-3.74 bhlo=555) MONOCYTES ABSOLUTE COUNT (BEAKER) (test 0.53 K/ L 0.24-0.36 kkgs=947) EOSINOPHILS ABSOLUTE COUNT (BEAKER) (test 0.00 K/ L 0.04-0.36 bnnq=495) BASOPHILS ABSOLUTE COUNT (BEAKER) (test 0.03 K/ L 0.01-0.08 tgec=623) IMMATURE GRANULOCYTES-RELATIVE PERCENT (BEAKER) 0 % 0-1 (test sluv=3577) (MANUAL DIFFERENTIAL)2017-03-17 22:54:00 Test Item Value Reference Range Comments NEUTROPHILS - REL (DIFF) (BEAKER) (test 76 % bjjj=4534) LYMPHOCYTES - REL (DIFF) (BEAKER) (test 4 % hiol=8295) MONOCYTES - REL (DIFF) (BEAKER) (test wxrv=2595) 2 % EOSINOPHILS - REL (DIFF) (BEAKER) (test 1 % iucr=6633) BANDS - REL (DIFF) (BEAKER) (test tljb=7476) 17 % 0-10 NEUTROPHILS - ABS (DIFF) (BEAKER) (test 12.01 K/ L 1.80-8.00 qjbl=6556) LYMPHOCYTES - ABS (DIFF) (BEAKER) (test 0.63 K/ L 1.48-4.50 wzuf=0381) MONOCYTES - ABS (DIFF) (BEAKER) (test radn=7497) 0.32 K/ L 0.00-1.30 EOSINOPHILS - ABS (DIFF) (BEAKER) (test 0.16 K/ L 0.00-0.50 lyds=6081) BANDS-ABS (DIFF) (BEAKER) (test gqdp=8154) 2.7 K/ L 0.0-0.8 TOTAL COUNTED (BEAKER) (test ifno=1655) 100 BANDS + SEGMENTED NEUTROPHILS (BEAKER) (test 14.69 ehzw=9250) WBC MORPHOLOGY (BEAKER) (test vsdh=596) Normal PLT MORPHOLOGY (BEAKER) (test yvpt=651) Normal RBC MORPHOLOGY (BEAKER) (test psuc=507) Normal CBC W/PLT COUNT & AUTO [id number] 22:53:00 Test Item Value Reference Range Comments WHITE BLOOD CELL COUNT (BEAKER) (test dtty=477) 15.8 K/ L 3.5-10.5 RED BLOOD CELL COUNT (BEAKER) (test eqha=003) 3.54 M/ L 3.93-5.22 HEMOGLOBIN (BEAKER) (test kqic=226) 11.8 GM/DL 11.2-15.7 HEMATOCRIT (BEAKER) (test udge=479) 36.0 % 34.1-44.9 MEAN CORPUSCULAR VOLUME (BEAKER) (test bmqj=127) 101.7 fL 79.4-94.8 MEAN CORPUSCULAR HEMOGLOBIN (BEAKER) (test 33.3 pg 25.6-32.2 rsav=258) MEAN CORPUSCULAR HEMOGLOBIN CONC (BEAKER) (test 32.8 GM/DL 32.2-35.5 rgnq=707) RED CELL DISTRIBUTION WIDTH (BEAKER) (test 14.6 % 11.7-14.4 yrkd=160) PLATELET COUNT (BEAKER) (test hchq=890) 192 K/CU MM 150-450 MEAN PLATELET VOLUME (BEAKER) (test qqrj=960) 9.4 fL 9.4-12.3 NUCLEATED RED BLOOD CELLS (BEAKER) (test 0 /100 WBC 0-0 wsby=325) NEUTROPHILS RELATIVE PERCENT (BEAKER) (test 91 % bofm=205) LYMPHOCYTES RELATIVE PERCENT (BEAKER) (test 6 % ulzv=726) MONOCYTES RELATIVE PERCENT (BEAKER) (test 3 % vafi=001) EOSINOPHILS RELATIVE PERCENT (BEAKER) (test 0 % hdea=796) BASOPHILS RELATIVE PERCENT (BEAKER) (test 0 % xkyd=936) NEUTROPHILS ABSOLUTE COUNT (BEAKER) (test 14.33 K/ L 1.56-6.13 vgyt=312) LYMPHOCYTES ABSOLUTE COUNT (BEAKER) (test 0.87 K/ L 1.18-3.74 raik=572) MONOCYTES ABSOLUTE COUNT (BEAKER) (test 0.51 K/ L 0.24-0.36 eixz=987) EOSINOPHILS ABSOLUTE COUNT (BEAKER) (test 0.04 K/ L 0.04-0.36 tjhf=761) BASOPHILS ABSOLUTE COUNT (BEAKER) (test 0.02 K/ L 0.01-0.08 hlct=919) IMMATURE GRANULOCYTES-RELATIVE PERCENT (BEAKER) 0 % 0-1 (test fewr=3536) COMPREHENSIVE METABOLIC [id number] 22:37:00 Test Item Value Reference Range Comments TOTAL PROTEIN (BEAKER) 5.3 gm/dL 6.0-8.3 (test vyvz=272) ALBUMIN (BEAKER) (test 2.9 g/dL 3.5-5.0 mhnp=9505) ALKALINE PHOSPHATASE 60 U/L 40-150 (BEAKER) (test pgny=481) BILIRUBIN TOTAL (BEAKER) 0.8 mg/dL 0.2-1.2 (test ioao=032) SODIUM (BEAKER) (test 137 meq/L 136-145 nohl=022) POTASSIUM (BEAKER) (test 3.9 meq/L 3.5-5.1 hylr=243) CHLORIDE (BEAKER) (test 109 meq/L 98-107 axth=066) CO2 (BEAKER) (test 20 meq/L 22-29 twnx=079) BLOOD UREA NITROGEN 34 mg/dL 7-21 (BEAKER) (test hvec=207) CREATININE (BEAKER) (test 1.27 mg/dL 0.57-1.25 txsn=108) GLUCOSE RANDOM (BEAKER) 115 mg/dL 70-105 (test gtng=365) CALCIUM (BEAKER) (test 7.9 mg/dL 8.4-10.2 rawv=899) AST (SGOT) (BEAKER) (test 51 U/L 5-34 eggt=026) ALT (SGPT) (BEAKER) (test 37 U/L 6-55 kpxt=901) EGFR (BEAKER) (test 44 mL/min/1.73 sq m ESTIMATED GFR IS NOT etwc=2690) ACCURATE CREATININE CLEARANCE IN PREDICTING GLOMERULAR FILTRATION RATE. ESTIMATED GFR IS NOT APPLICABLE FOR DIALYSIS PATIENTS. [id number] 22:36:00 Test Item Value Reference Range Comments PHOSPHORUS (BEAKER) (test brov=983) 4.4 mg/dL 2.3-4.7 [id number] 22:36:00 Test Item Value Reference Range Comments MAGNESIUM (BEAKER) (test ngof=342) 1.3 mg/dL 1.6-2.6 BLOOD GAS, [id number] 22:31:00 Test Item Value Reference Range Comments PH ARTERIAL (BEAKER) (test iqie=716) 7.29 7.35-7.45 PCO2 ARTERIAL (BEAKER) (test amva=772) 33 mmHg 35-45 PO2 ARTERIAL (BEAKER) (test zftx=670) 76 mmHg 80-90 O2 SATURATION ARTERIAL (BEAKER) (test xqwl=658) 94.5 % 96.0-97.0 HCO3 ARTERIAL (BEAKER) (test mfhp=814) 16 mmol/L 21-29 BASE EXCESS ARTERIAL (BEAKER) (test xgwn=483) -10.1 mmol/L -2.0-3.0 PATIENT TEMPERATURE (BEAKER) (test wyfn=7749) 36.4 C FIO2 (BEAKER) (test pgen=8390) 28.0 % RAD, ABDOMEN/KUB, 1 VIEW [id number] 22:20:00Reason for exam:->ngt placementFINAL REPORT RAD, ABDOMEN/KUB, 1 VIEW AP CLINICAL INDICATION: "ngt placement" COMPARISON: None TECHNIQUE: Single, frontal radiograph of the abdomen. IMPRESSION: Enteric tube terminates in the expected portion of the gastric body.Nonspecific nonobstructive bowel gas pattern.No pneumatosis or obvious pneumoperitoneum.No acute osseous abnormality. Signed: Tony Celaya MDReport Verified Date/Time: 03/17/2017 22 :20:51 Reading Location: [facility] [id number] Ortho Consult Reading Room (MANUAL DIFFERENTIAL)2017-03-17 17:58:00 Test Item Value Reference Range Comments NEUTROPHILS - REL (DIFF) (BEAKER) (test 72 % lieb=0347) LYMPHOCYTES - REL (DIFF) (BEAKER) (test 10 % qomf=8267) MONOCYTES - REL (DIFF) (BEAKER) (test hpcs=0910) 4 % BANDS - REL (DIFF) (BEAKER) (test yked=5942) 14 % 0-10 NEUTROPHILS - ABS (DIFF) (BEAKER) (test 11.38 K/ L 1.80-8.00 musn=2881) LYMPHOCYTES - ABS (DIFF) (BEAKER) (test 1.58 K/ L 1.48-4.50 uctr=3656) MONOCYTES - ABS (DIFF) (BEAKER) (test xufo=9208) 0.63 K/ L 0.00-1.30 BANDS-ABS (DIFF) (BEAKER) (test kwcn=3555) 2.2 K/ L 0.0-0.8 TOTAL COUNTED (BEAKER) (test irju=8634) 100 BANDS + SEGMENTED NEUTROPHILS (BEAKER) (test 13.59 tsgk=0321) WBC MORPHOLOGY (BEAKER) (test ggbq=940) Normal PLT MORPHOLOGY (BEAKER) (test gyaa=873) Normal RBC MORPHOLOGY (BEAKER) (test ihxo=050) Normal CBC W/PLT COUNT & AUTO [id number] 17:57:00 Test Item Value Reference Range Comments WHITE BLOOD CELL COUNT (BEAKER) (test ahwh=011) 15.8 K/ L 3.5-10.5 RED BLOOD CELL COUNT (BEAKER) (test pwdn=260) 3.93 M/ L 3.93-5.22 HEMOGLOBIN (BEAKER) (test mjpz=096) 13.1 GM/DL 11.2-15.7 HEMATOCRIT (BEAKER) (test ceko=888) 39.5 % 34.1-44.9 MEAN CORPUSCULAR VOLUME (BEAKER) (test mwjo=140) 100.5 fL 79.4-94.8 MEAN CORPUSCULAR HEMOGLOBIN (BEAKER) (test 33.3 pg 25.6-32.2 rjxa=512) MEAN CORPUSCULAR HEMOGLOBIN CONC (BEAKER) (test 33.2 GM/DL 32.2-35.5 kwoc=035) RED CELL DISTRIBUTION WIDTH (BEAKER) (test 14.6 % 11.7-14.4 tuop=416) PLATELET COUNT (BEAKER) (test nqbe=347) 234 K/CU MM 150-450 MEAN PLATELET VOLUME (BEAKER) (test lasi=629) 9.5 fL 9.4-12.3 NUCLEATED RED BLOOD CELLS (BEAKER) (test 0 /100 WBC 0-0 xbws=471) NEUTROPHILS RELATIVE PERCENT (BEAKER) (test 87 % bbkv=446) LYMPHOCYTES RELATIVE PERCENT (BEAKER) (test 7 % xbau=392) MONOCYTES RELATIVE PERCENT (BEAKER) (test 5 % cinx=091) EOSINOPHILS RELATIVE PERCENT (BEAKER) (test 0 % vwaz=135) BASOPHILS RELATIVE PERCENT (BEAKER) (test 0 % hyko=176) NEUTROPHILS ABSOLUTE COUNT (BEAKER) (test 13.84 K/ L 1.56-6.13 kfvq=523) LYMPHOCYTES ABSOLUTE COUNT (BEAKER) (test 1.16 K/ L 1.18-3.74 xvve=960) MONOCYTES ABSOLUTE COUNT (BEAKER) (test 0.72 K/ L 0.24-0.36 nxii=650) EOSINOPHILS ABSOLUTE COUNT (BEAKER) (test 0.04 K/ L 0.04-0.36 aqyh=526) BASOPHILS ABSOLUTE COUNT (BEAKER) (test 0.03 K/ L 0.01-0.08 hsvx=723) IMMATURE GRANULOCYTES-RELATIVE PERCENT (BEAKER) 0 % 0-1 (test pgio=8029) [id number] 17:14:00 Test Item Value Reference Range Comments PARTIAL THROMBOPLASTIN TIME (BEAKER) (test 21.4 seconds 22.5-36.0 iwze=966) CREATINE KINASE (CK), TOTAL AND [id number] 17:10:00 Test Item Value Reference Range Comments CREATINE KINASE TOTAL (BEAKER) (test zgbo=561) 39 U/L 29-200 CREATINE KINASE-MB (BEAKER) (test oavc=087) 1.2 ng/mL 0.0-6.6 CREATINE KINASE-MB INDEX (BEAKER) (test fsqm=058) 3.1 % CK-MB Reference Range:<6.7 Normal6.7-10.0 Borderline>10.0 AbnormalTROPONIN [id number] 17:10:00 Test Item Value Reference Range Comments TROPONIN I (BEAKER) (test ohpm=151) < ng/mL 0.00-0.03 Troponin I (TnI) levels [...] failure, acidosis, acute neurological disease, and persistent tachyarrhythmia.[id number] 17:09:00 Test Item Value Reference Range Comments MAGNESIUM (BEAKER) (test 1.9 mg/dL 1.6-2.6 Specimen slightly hemolyzed gscc=104) [id number] 17:09:00 Test Item Value Reference Range Comments PHOSPHORUS (BEAKER) (test 4.1 mg/dL 2.3-4.7 Specimen slightly hemolyzed hxlf=186) BASIC METABOLIC [id number] 17:09:00 Test Item Value Reference Range Comments SODIUM (BEAKER) (test 137 meq/L 136-145 cyoi=757) POTASSIUM (BEAKER) (test 4.2 meq/L 3.5-5.1 Specimen slightly lzuy=277) hemolyzed CHLORIDE (BEAKER) (test 109 meq/L 98-107 kidk=953) CO2 (BEAKER) (test 19 meq/L 22-29 fedy=359) BLOOD UREA NITROGEN 37 mg/dL 7-21 (BEAKER) (test szel=216) CREATININE (BEAKER) (test 1.33 mg/dL 0.57-1.25 Specimen slightly ncsf=880) hemolyzed GLUCOSE RANDOM (BEAKER) 105 mg/dL 70-105 (test aisy=723) CALCIUM (BEAKER) (test 8.6 mg/dL 8.4-10.2 kjkd=752) EGFR (BEAKER) (test 41 mL/min/1.73 sq m ESTIMATED GFR IS NOT ljyq=1300) ACCURATE CREATININE CLEARANCE IN PREDICTING GLOMERULAR FILTRATION RATE. ESTIMATED GFR IS NOT APPLICABLE FOR DIALYSIS PATIENTS. HEPATIC FUNCTION [id number] 17:09:00 Test Item Value Reference Range Comments TOTAL PROTEIN (BEAKER) (test 6.5 gm/dL 6.0-8.3 Specimen slightly hemolyzed lxek=291) ALBUMIN (BEAKER) (test 3.4 g/dL 3.5-5.0 Specimen slightly hemolyzed ktxm=5036) BILIRUBIN TOTAL (BEAKER) (test 0.8 mg/dL 0.2-1.2 Specimen slightly hemolyzed jqsc=386) BILIRUBIN DIRECT (BEAKER) (test 0.3 mg/dL 0.1-0.5 Specimen slightly hemolyzed yseo=595) ALKALINE PHOSPHATASE (BEAKER) 73 U/L 40-150 (test kgpz=084) AST (SGOT) (BEAKER) (test 16 U/L 5-34 Specimen slightly hemolyzed bdcj=224) ALT (SGPT) (BEAKER) (test 14 U/L 6-55 Specimen slightly hemolyzed wkqi=088) PROTHROMBIN [id number] 16:48:00 Test Item Value Reference Range Comments PROTIME (BEAKER) (test hdwx=833) 13.9 seconds 11.7-14.7 INR (BEAKER) (test keyx=601) 1.1 <=5.9 RECOMMENDED COUMADIN/WARFARIN INR THERAPY RANGESSTANDARD DOSE: 2.0 - 3.0 Includes: PROPHYLAXIS forvenous thrombosis, systemic embolization; TREATMENT for venous thrombosis and/or pulmonary embolus.HIGH RISK: Target INR is 2.5-3.5 for patients with mechanical heart valves.PROTHROMBIN [id number] 16:47: 00 Test Item Value Reference Range Comments PROTIME (BEAKER) (test pfrj=125) 13.9 seconds 11.7-14.7 INR (BEAKER) (test pykn=729) 1.1 <=5.9 RECOMMENDED COUMADIN/WARFARIN INR THERAPY RANGESSTANDARD DOSE: 2.0 - 3.0 Includes: PROPHYLAXIS forvenous thrombosis, systemic embolization; TREATMENT for venous thrombosis and/or pulmonary embolus.HIGH RISK: Target INR is 2.5-3.5 for patients with mechanical heart valves.
--- NOTE | 2018-05-11 04:42 | ER ---
Nurse's Notes [facility] Name: Norma Boggs Age: 57 yrs Sex: Female : 1960 Arrival Date: 05/11/2018 Time: 03:11 Bed 19 Private MD: Titus Pena E Diagnosis: Contusion of right upper arm;Contusion of right forearm;Contusion of right shoulder Presentation: 05/11 03:23 Presenting complaint: Patient states: I fell a about 10 days ago and hurt my right arm tl2 but never came for an xray and it hasn't gotten any better. Reports pain in right upper arm, no bruising or deformity noted. ROM is limited in right arm. Transition of care: patient was not received from another setting of care. Onset of symptoms was May 01, 2018. Risk Assessment: Do you want to hurt yourself or someone else? Patient reports no desire to harm self or others. Initial Sepsis Screen: Does the patient meet any 2 criteria? No. Patient's initial sepsis screen is negative. Does the patient have a suspected source of infection? No. Patient's initial sepsis screen is negative. Care prior to arrival: None. 03:23 Method Of Arrival: Ambulatory tl2 03:23 Acuity: ABDULLAHI 4 tl2 Triage Assessment: 03:27 General: Appears in no apparent distress. uncomfortable, Behavior is calm, cooperative, tl2 appropriate for age. Pain: Complains of pain in right bicep and right tricep Pain radiates to neck Pain currently is 8 out of 10 on a pain scale. Aggravated by increased activity. Neuro: Level of Consciousness is awake, alert, obeys commands, Oriented to person, place, time, situation. Cardiovascular: Denies chest pain. Respiratory: Airway is patent Respiratory effort is even, unlabored, Respiratory pattern is regular, symmetrical. GI: No signs and/or symptoms were reported involving the gastrointestinal system. Musculoskeletal: Circulation, motion, and sensation intact. Range of motion: limited in right shoulder and right elbow Swelling absent. Historical: - Allergies: 03:27 No Known Allergies; tl2 - Home Meds: 03:27 amlodipine 5 mg oral tab [Active]; lisinopril Oral [Active]; Lyrica Oral [Active]; tl2 gabapentin oral [Active]; Xanax 1 mg Oral tab 1 tab [Active]; Protonix Oral [Active]; - PMHx: 03:27 BOWEL PERFORATION; carpal tunnel; Diverticulitis; Hypertension; Thyroid problem; tl2 - Immunization history:: Adult Immunizations up to date. - Social history:: Smoking status: Patient uses tobacco products, denies chronic smoking, but will smoke occasionally. - Ebola Screening: : No symptoms or risks identified at this time. Screenin:30 Abuse screen: Denies threats or abuse. Nutritional screening: No deficits noted. tl2 Tuberculosis screening: No symptoms or risk factors identified. Fall Risk None identified. Assessment: 03:30 General: see triage assessment. tl2 04:53 Reassessment: Patient appears in no apparent distress at this time. Patient and/or tl2 family updated on plan of care and expected duration. Pain level reassessed. Patient is alert, oriented x 3, equal unlabored respirations, skin warm/dry/pink. pt verbalized understanding of discharge instructions, need for follow up, use of sling, and prescription usage. Vital Signs: 03:27 BP 168 / 110; Pulse 66; Resp 18; Temp 98(O); Pulse Ox 100% on R/A; Weight 72.12 kg; tl2 Height 5 ft. 7 in. (170.18 cm); Pain 8/10; 04:36 BP 152 / 107; Pulse 58; Resp 18; Pulse Ox 100% on R/A; tl2 04:53 BP 147 / 108; Pulse 58; Resp 18; Pulse Ox 100% on R/A; tl2 03:27 Body Mass Index 24.90 (72.12 kg, 170.18 cm) tl2 ED Course: 03:11 Patient arrived in ED. es 03:11 Titus Pena MD is Private Physician. es 03:21 Frandy Buchanan MD is Attending Physician. tw4 03:23 Jo Ann Liu, IGNACIO is Primary Nurse. tl2 03:25 Triage completed. tl2 03:27 Arm band placed on right wrist. tl2 03:30 Patient has correct armband on for positive identification. Placed in gown. Bed in low tl2 position. Call light in reach. Side rails up X 1. 04:27 X-ray completed. Portable x-ray completed in exam room. Patient tolerated procedure kw well. 04:27 Elbow Right 3 View XRAY In Process Unspecified. EDMS 04:27 Humerus Right XRAY In Process Unspecified. EDMS 04:28 Shoulder Right (2 View) XRAY In Process Unspecified. EDMS 04:41 Titus Pena MD is Referral Physician. tw4 04:53 No provider procedures requiring assistance completed. Patient did not have IV access tl2 during this emergency room visit. 04:55 Sling applied to right arm. tl2 Administered Medications: 04:55 Drug: Welch 5 mg-325 mg 1 tabs Route: PO; tl2 04:56 Follow up: Response: No adverse reaction; Medication administered at discharge. tl2 Outcome: 04:41 Discharge ordered by MD. tw4 04:53 Discharged to home ambulatory. tl2 04:53 Condition: stable 04:53 Discharge instructions given to patient, Instructed on discharge instructions, follow up and referral plans. medication usage, Demonstrated understanding of instructions, follow-up care, medications, Prescriptions given X 1. 04:56 Patient left the ED. tl2 Signatures: Dispatcher [employer] EDMS Eli Trinidad Kimberlee kw Knox, Taylor, IGNACIO RN tl2 Frandy Buchanan MD MD tw4
[2018-05-11] MEDS ORDERED: HYDROCODONE/APAP 5/325 MG TAB ONE (04:57)
--- NOTE | 2018-05-11 09:25 | RAD REPORT ---
EXAM DESCRIPTION: Shoulder Right 2 View - 05/11/2018 4:28 am CLINICAL HISTORY: Persistent right shoulder pain after a fall approximately 10 days earlier COMPARISON: None. TECHNIQUE: Internal and external rotation views of the right shoulder were obtained. FINDINGS: There is no fracture or dislocation. AC joint is normal in appearance. Minimal degenerati ve change present along the undersurface of the acromion. Acromial humeral joint space is normal with no calcification. IMPRESSION: No fracture, dislocation or acute finding of the right shoulder.
--- NOTE | 2018-05-11 09:26 | RAD REPORT ---
EXAM DESCRIPTION: RAD - Elbow Right 3 View - 05/11/2018 4:27 am CLINICAL HISTORY: Persistent right elbow pain following fall 10 days earlier COMPARISON: None. FINDINGS: No fracture is identified and no elevated posterior fat pad. There is no dislocation or pe riosteal reaction noted. No foreign body or other soft tissue abnormality. Minimal spur seen along th e lateral epicondyle. IMPRESSION: Negative right elbow examination for acute or significant finding.
--- NOTE | 2018-05-11 09:27 | RAD REPORT ---
EXAM DESCRIPTION: RAD - Humerus Right - 05/11/2018 4:28 am CLINICAL HISTORY: Persistent right arm pain following fall 10 days earlier COMPARISON: None. FINDINGS: No fracture is identified. There is no dislocation or periosteal reaction noted. No foreig n body or other soft tissue abnormality. IMPRESSION: Negative right humerus examination. Shoulder and elbow joints are separately detailed.
--- NOTE | 2018-05-12 04:56 | EDPHYS ---
Physician Documentation [facility] Name: Norma Boggs Age: 57 yrs Sex: Female : 1960 Arrival Date: 05/11/2018 Time: 03:11 Bed 19 Private MD: Titus Pena E ED Physician Frandy Buchanan HPI: 05/11 06:35 This 57 yrs old Female presents to ER via Ambulatory with complaints of Arm tw4 Injury. 06:35 The patient or guardian complains of injury. The complaints affect the posterior aspect tw4 of right shoulder and right elbow. Context: The problem was sustained at home, resulted from a fall. Onset: The symptoms/episode began/occurred 10 day(s) ago. Treatment prior to arrival includes: no previous treatment. Modifying factors: The symptoms are alleviated by remaining still, the symptoms are aggravated by movement, lifting weight, bending arm. Associated signs and symptoms: The patient has no apparent associated signs or symptoms. Severity of symptoms: At their worst the symptoms were moderate, in the emergency department the symptoms are unchanged. The patient has not experienced similar symptoms in the past. Historical: - Allergies: 03:27 No Known Allergies; tl2 - Home Meds: 03:27 amlodipine 5 mg oral tab [Active]; lisinopril Oral [Active]; Lyrica Oral [Active]; tl2 gabapentin oral [Active]; Xanax 1 mg Oral tab 1 tab [Active]; Protonix Oral [Active]; - PMHx: 03:27 BOWEL PERFORATION; carpal tunnel; Diverticulitis; Hypertension; Thyroid problem; tl2 - Immunization history:: Adult Immunizations up to date. - Social history:: Smoking status: Patient uses tobacco products, denies chronic smoking, but will smoke occasionally. - Ebola Screening: : No symptoms or risks identified at this time. ROS: 06:35 Constitutional: Negative for fever, chills, and weight loss, Cardiovascular: Negative tw4 for chest pain, palpitations, and edema, Respiratory: Negative for shortness of breath, cough, wheezing, and pleuritic chest pain, Abdomen/GI: Negative for abdominal pain, nausea, vomiting, diarrhea, and constipation. 06:35 MS/extremity: Positive for injury or acute deformity, decreased range of motion, Negative for ecchymosis, erythema, puncture, rash, swelling, tenderness, tingling, warmth. Exam: 06:35 Constitutional: This is a well developed, well nourished patient who is awake, alert, tw4 and in no acute distress. Head/Face: Normocephalic, atraumatic. Chest/axilla: Normal chest wall appearance and motion. Nontender with no deformity. No lesions are appreciated. Cardiovascular: Regular rate and rhythm with a normal S1 and S2. No gallops, murmurs, or rubs. Normal PMI, no JVD. No pulse deficits. Respiratory: Lungs have equal breath sounds bilaterally, clear to auscultation and percussion. No rales, rhonchi or wheezes noted. No increased work of breathing, no retractions or nasal flaring. Abdomen/GI: Soft, non-tender, with normal bowel sounds. No distension or tympany. No guarding or rebound. No evidence of tenderness throughout. 06:35 Musculoskeletal/extremity: Extremities: all appear grossly normal, with no appreciated pain with palpation, ROM: limited active range of motion, limited passive range of motion, in the posterior aspect of right shoulder. Vital Signs: 03:27 BP 168 / 110; Pulse 66; Resp 18; Temp 98(O); Pulse Ox 100% on R/A; Weight 72.12 kg; tl2 Height 5 ft. 7 in. (170.18 cm); Pain 8/10; 04:36 BP 152 / 107; Pulse 58; Resp 18; Pulse Ox 100% on R/A; tl2 04:53 BP 147 / 108; Pulse 58; Resp 18; Pulse Ox 100% on R/A; tl2 03:27 Body Mass Index 24.90 (72.12 kg, 170.18 cm) tl2 MDM: 03:21 Patient medically screened. tw4 06:35 Differential diagnosis: dislocation, open fracture, closed fracture. Data reviewed: tw4 vital signs, nurses notes. Data interpreted: Pulse oximetry: Interpretation: normal. Counseling: I had a detailed discussion with the patient and/or guardian regarding: the historical points, exam findings, and any diagnostic results supporting the discharge/admit diagnosis, radiology results. Medication response: norco. Response to treatment: the patient's symptoms have markedly improved after treatment, and as a result, I will discharge patient. Special discussion: I discussed with the patient/guardian in detail that at this point there is no indication for admission to the hospital. It is understood, however, that if the symptoms persist or worsen the patient needs to return immediately for re-evaluation. Based on the history and exam findings, there is no indication for further emergent testing or inpatient evaluation. I discussed with the patient/guardian the need to see the orthopedic surgeon for further evaluation of the symptoms. 05/11 03:53 Order name: Elbow Right 3 View XRAY tl2 05/11 03:53 Order name: Humerus Right XRAY tl2 05/11 03:53 Order name: Shoulder Right (2 View) XRAY tl2 05/11 04:55 Order name: Sling; Complete Time: 04:55 tl2 Administered Medications: 04:55 Drug: Ladson 5 mg-325 mg 1 tabs Route: PO; tl2 04:56 Follow up: Response: No adverse reaction; Medication administered at discharge. tl2 Disposition: 06:39 Chart complete. tw4 Disposition: 05/11/18 04:41 Discharged to Home. Impression: Contusion of right upper arm, Contusion of right forearm, Contusion of right shoulder. - Condition is Stable. - Discharge Instructions: Contusion, [id number]. - Prescriptions for Tramadol 50 mg Oral Tablet - take 1 tablet by ORAL route every 8 hours as needed; 12 tablet. - Medication Reconciliation Form, Thank You Letter, Antibiotic Education, Prescription Opioid Use form. - Follow up: Titus Pena MD; When: Upon discharge from the Emergency Department; Reason: If symptoms return, Recheck today's complaints, Continuance of care. - Problem is new. - Symptoms have improved. Signatures: Dispatcher [employer] EDCA Jo Ann Liu RN RN tl2 Frandy Buchanan MD MD tw4 Corrections: (The following items were deleted from the chart) 04:56 04:41 05/11/2018 04:41 Discharged to Home. Impression: Contusion of right upper arm; tl2 Contusion of right forearm; Contusion of right shoulder. Condition is Stable. Forms are Medication Reconciliation Form, Thank You Letter, Antibiotic Education, Prescription Opioid Use. Follow up: Titus Pena; When: Upon discharge from the Emergency Department; Reason: If symptoms return, Recheck today's complaints, Continuance of care. Problem is new. Symptoms have improved. tw4
== END 2018-05-11 04:56 | disposition home or self-care (01) ==
LOC: ER 03:07
DX: S50.11XA Contusion of right forearm, initial encounter (principal); S40.011A Contusion of right shoulder, initial encounter; W19.XXXA Unspecified fall, initial encounter; Y93.9 Activity, unspecified; Y92.009 Unspecified place in unspecified non-institutional (private) residence as the place of occurrence of the external cause; Z72.0 Tobacco use; I10 Essential (primary) hypertension; E07.9 Disorder of thyroid, unspecified
CPT/HCPCS: 99284

== ENCOUNTER 2018-08-04 13:36 | Emergency (ER) | payer OTHER, SELFPAY ==
--- OUTSIDE RECORDS SUMMARY | 2018-08-04 13:38 | XMS REPORT | Clinical Summary ---
:1960 Author Organization [facility] Address [address] [place] [address] Care Team Providers Name Role Phone Unavailable [...] Not on file Results Not on fileafter 08/03/2017 Insurance Payer Benefit Plan / Group Subscriber ID Type Phone Address [facility] CHOICE xxxxxxxxxxxx HMO/POS [phone] CHOICE EXCHANGE Advance Directives For more information, please contact:[address] [phone] Code Status Date Activated Date Inactivated Comments Full Code 03/17/2017 3:19 PM 03/21/2017 9:59 PM This code status was determined by: Patient Name Relationship Healthcare Agent Relationship Phone Hannah Boggs Daughter First alternate healthcare agent [phone] Scarlett Olmstead Other Second alternate healthcare agent [phone]
--- OUTSIDE RECORDS SUMMARY | 2018-08-04 13:40 | XMS REPORT ---
:1960 [facility] Address [address] [place] [address] Dr. Freeman [address] [place] [id number] Care Team Providers Name Role Phone ALETA BLACKWELL Unavailable Unavailable Problems This patient has no known problems. Allergies, Adverse Reactions, Alerts This patient has no known allergies or adverse reactions. Medications This patient has no known medications. Results Test Description Test Time Test Comments Text Results Atomic Results Result Comments BLOOD CULTURE 2017-03-22 23:00:00 Test Item Value Reference Range Comments CULTURE (BEAKER) (test ngxy=0660) No growth in 5 days BLOOD [id number] 23:00:00 Test Item Value Reference Range Comments CULTURE (BEAKER) (test pmya=2073) No growth in 5 days ANAEROBIC [id number] 04:03:00 Test Item Value Reference Range Comments CULTURE (BEAKER) (test arrd=8402) No anaerobes isolated TISSUE [id number] 18:46:00Surgical Pathology Report Case: [id number] Authorizing Provider: Aleta Blackwell MD Collected: 03/17/20172024 Ordering Location: [address] Received: 03/18/2017 0801 Cardiovascular Pathologist: Sania Chambers MD Specimen: Gastric, Gastric antrum Biopsy This addendum is being issued to report the GMS stain.RESULT:- GMS stain highlights non-branching fungal pseudohyphal elements. Morphologically, these are suggestive of Amber species. - It is possible that this could represent colonization of the mucosa post- ulceration- Clinical and radiologic correlation is recommended.[id number] electronically signed by Sania Chambers MD on 03/21/2017 at 6:46 PMA. STOMACH,ANTRUM, BIOPSY: - GASTRIC WALL WITH ULCERATION AND MARKED ACUTE AND CHRONIC INFLAMMATION - NEGATIVE FOR MALIGNANCY - SEE COMMENT AND MICROSCOPIC DESCRIPTION Signing Pathologist Direct Phone Line: [phone] signed by Sania Chambers MD on 03/21/2017 at 5:51 PMPreliminary result electronically signed by Sania Chambers MD on 2016 at 10:07 AMGiven the presence of non-specific refractile polarizable fragments in the superficial mucosa and deeper gastric wall, medication induced gastritis and subsequent ulceration is a possibility. Possibility of a contaminant cannot be entirely excluded. Clinical and radiologic correlation is recommended.[id number] perforationGastric antrum biopsyA. Received in formalin labeled [...] developed and its performance characteristics determined by [facility], Pathology Laboratory. It has not been [...] to perform high complexity clinical laboratory testing.CT, [id number] 18:07:00Please give IV and ORAL contrast to [...] MDReport Verified Date/Time: 03/21/2017 18:07:08 Reading Location: [facility] B1 C013Y CT Body Reading Room POCT-GLUCOSE [id number] 17:34:00 Test Item Value Reference Range Comments POC-GLUCOSE METER (BEAKER) 111 mg/dL 70-110 TESTED AT [address] (test uelo=5967) [place] [address] SURGICALLY OBTAINED CULTURE + GRAM [id number] 15:37:00 Test Item Value Reference Range Comments CULTURE (BEAKER) (test 1+ Amber dvid=6316) albicans GRAM STAIN RESULT 2+ White blood (BEAKER) (test cells seen ofpy=8663) GRAM STAIN RESULT No organisms seen (BEAKER) (test njsi=779337) CULTURE (BEAKER) (test itoz=5755) 5-Flurocytosine (test cptz=785) Caspofungin acetate (test zmvg=808) Fluconazole (test rdud=373) Itraconazole (test ciae=029) Micafungin (test jgle=364) Voriconazole (test otgt=218) Amphotericin B (test Susceptible >0-0 , No fsml=063) Interpretations Established <=0 or >0 Posaconazole (test Susceptible >0-0 , No wbqo=398) Interpretations Established <=0 or >0 GRAM STAIN RESULT No organisms seen (BEAKER) (test qxer=346893) POCT-GLUCOSE [id number] 12:25:00 Test Item Value Reference Range Comments POC-GLUCOSE METER (BEAKER) 88 mg/dL 70-110 TESTED AT [address] (test ktaz=9206) [place] [address] [id number] 05:41:00 Test Item Value Reference Range Comments PHOSPHORUS (BEAKER) (test srut=932) 2.8 mg/dL 2.3-4.7 [id number] 05:41:00 Test Item Value Reference Range Comments MAGNESIUM (BEAKER) (test xdtr=886) 2.1 mg/dL 1.6-2.6 BASIC METABOLIC [id number] 05:41:00 Test Item Value Reference Range Comments SODIUM (BEAKER) (test 137 meq/L 136-145 tqnt=883) POTASSIUM (BEAKER) (test 2.9 meq/L 3.5-5.1 bhhx=059) CHLORIDE (BEAKER) (test 101 meq/L 98-107 jysk=551) CO2 (BEAKER) (test 25 meq/L 22-29 mjjv=982) BLOOD UREA NITROGEN 9 mg/dL 7-21 (BEAKER) (test nntm=778) CREATININE (BEAKER) (test 0.69 mg/dL 0.57-1.25 acac=503) GLUCOSE RANDOM (BEAKER) 93 mg/dL 70-105 (test qkqm=830) CALCIUM (BEAKER) (test 8.8 mg/dL 8.4-10.2 aree=035) EGFR (BEAKER) (test 88 mL/min/1.73 sq m ESTIMATED GFR IS NOT gdej=9295) ACCURATE CREATININE CLEARANCE IN PREDICTING GLOMERULAR FILTRATION RATE. ESTIMATED GFR IS NOT APPLICABLE FOR DIALYSIS PATIENTS. CBC W/PLT COUNT & AUTO [id number] 05:34:00 Test Item Value Reference Range Comments WHITE BLOOD CELL COUNT (BEAKER) (test ubja=345) 13.1 K/ L 3.5-10.5 RED BLOOD CELL COUNT (BEAKER) (test mtty=877) 3.74 M/ L 3.93-5.22 HEMOGLOBIN (BEAKER) (test nzig=874) 12.3 GM/DL 11.2-15.7 HEMATOCRIT (BEAKER) (test wyxq=839) 35.7 % 34.1-44.9 MEAN CORPUSCULAR VOLUME (BEAKER) (test dyxg=706) 95.5 fL 79.4-94.8 MEAN CORPUSCULAR HEMOGLOBIN (BEAKER) (test 32.9 pg 25.6-32.2 fzih=570) MEAN CORPUSCULAR HEMOGLOBIN CONC (BEAKER) (test 34.5 GM/DL 32.2-35.5 akpy=415) RED CELL DISTRIBUTION WIDTH (BEAKER) (test 13.8 % 11.7-14.4 ugwz=934) PLATELET COUNT (BEAKER) (test nfpg=242) 251 K/CU MM 150-450 MEAN PLATELET VOLUME (BEAKER) (test lver=524) 8.9 fL 9.4-12.3 NUCLEATED RED BLOOD CELLS (BEAKER) (test 0 /100 WBC 0-0 cqar=846) NEUTROPHILS RELATIVE PERCENT (BEAKER) (test 77 % ffds=847) LYMPHOCYTES RELATIVE PERCENT (BEAKER) (test 12 % owcr=196) MONOCYTES RELATIVE PERCENT (BEAKER) (test 5 % rces=334) EOSINOPHILS RELATIVE PERCENT (BEAKER) (test 5 % tigz=214) BASOPHILS RELATIVE PERCENT (BEAKER) (test 0 % hhqk=508) NEUTROPHILS ABSOLUTE COUNT (BEAKER) (test 10.05 K/ L 1.56-6.13 makk=789) LYMPHOCYTES ABSOLUTE COUNT (BEAKER) (test 1.54 K/ L 1.18-3.74 yjbx=041) MONOCYTES ABSOLUTE COUNT (BEAKER) (test 0.67 K/ L 0.24-0.36 nabd=647) EOSINOPHILS ABSOLUTE COUNT (BEAKER) (test 0.61 K/ L 0.04-0.36 fvtk=511) BASOPHILS ABSOLUTE COUNT (BEAKER) (test 0.03 K/ L 0.01-0.08 ummz=287) IMMATURE GRANULOCYTES-RELATIVE PERCENT (BEAKER) 1 % 0-1 (test xbyf=1238) POCT-GLUCOSE [id number] 05:14:00 Test Item Value Reference Range Comments POC-GLUCOSE METER (BEAKER) 98 mg/dL 70-110 TESTED AT [address] (test eyok=9630) [place] [address] POCT-GLUCOSE [id number] 00:28:00 Test Item Value Reference Range Comments POC-GLUCOSE METER (BEAKER) 104 mg/dL 70-110 TESTED AT [address] (test jdbu=9586) [place] [address] POCT-GLUCOSE [id number] 17:13:00 Test Item Value Reference Range Comments POC-GLUCOSE METER (BEAKER) 90 mg/dL 70-110 TESTED AT [address] (test hidf=0766) [place] [address] POCT-GLUCOSE [id number] 12:20:00 Test Item Value Reference Range Comments POC-GLUCOSE METER (BEAKER) 101 mg/dL 70-110 TESTED AT [address] (test vwta=7539) [place] [address] [id number] 06:21:00 Test Item Value Reference Range Comments PHOSPHORUS (BEAKER) (test jcwz=387) 2.5 mg/dL 2.3-4.7 [id number] 06:21:00 Test Item Value Reference Range Comments MAGNESIUM (BEAKER) (test wjou=305) 1.8 mg/dL 1.6-2.6 BASIC METABOLIC [id number] 06:21:00 Test Item Value Reference Range Comments SODIUM (BEAKER) (test 139 meq/L 136-145 btvg=411) POTASSIUM (BEAKER) (test 2.9 meq/L 3.5-5.1 qfhf=385) CHLORIDE (BEAKER) (test 105 meq/L 98-107 itli=381) CO2 (BEAKER) (test 22 meq/L 22-29 ycsq=228) BLOOD UREA NITROGEN 12 mg/dL 7-21 (BEAKER) (test fenz=586) CREATININE (BEAKER) (test 0.72 mg/dL 0.57-1.25 qxgk=236) GLUCOSE RANDOM (BEAKER) 85 mg/dL 70-105 (test dltd=654) CALCIUM (BEAKER) (test 8.4 mg/dL 8.4-10.2 osdx=219) EGFR (BEAKER) (test 84 mL/min/1.73 sq m ESTIMATED GFR IS NOT hszl=5801) ACCURATE CREATININE CLEARANCE IN PREDICTING GLOMERULAR FILTRATION RATE. ESTIMATED GFR IS NOT APPLICABLE FOR DIALYSIS PATIENTS. CBC W/PLT COUNT & AUTO [id number] 06:05:00 Test Item Value Reference Range Comments WHITE BLOOD CELL COUNT (BEAKER) (test hkxa=588) 16.4 K/ L 3.5-10.5 RED BLOOD CELL COUNT (BEAKER) (test gdix=867) 3.88 M/ L 3.93-5.22 HEMOGLOBIN (BEAKER) (test isoi=384) 12.6 GM/DL 11.2-15.7 HEMATOCRIT (BEAKER) (test gjcp=029) 37.5 % 34.1-44.9 MEAN CORPUSCULAR VOLUME (BEAKER) (test cnhi=491) 96.6 fL 79.4-94.8 MEAN CORPUSCULAR HEMOGLOBIN (BEAKER) (test 32.5 pg 25.6-32.2 bxff=696) MEAN CORPUSCULAR HEMOGLOBIN CONC (BEAKER) (test 33.6 GM/DL 32.2-35.5 knxk=739) RED CELL DISTRIBUTION WIDTH (BEAKER) (test 14.1 % 11.7-14.4 oxdc=632) PLATELET COUNT (BEAKER) (test tavn=164) 210 K/CU MM 150-450 MEAN PLATELET VOLUME (BEAKER) (test mobs=942) 9.1 fL 9.4-12.3 NUCLEATED RED BLOOD CELLS (BEAKER) (test 0 /100 WBC 0-0 vyyb=275) NEUTROPHILS RELATIVE PERCENT (BEAKER) (test 82 % hbxm=205) LYMPHOCYTES RELATIVE PERCENT (BEAKER) (test 10 % qlpy=563) MONOCYTES RELATIVE PERCENT (BEAKER) (test 3 % cxsg=528) EOSINOPHILS RELATIVE PERCENT (BEAKER) (test 4 % vrtp=450) BASOPHILS RELATIVE PERCENT (BEAKER) (test 0 % nezv=643) NEUTROPHILS ABSOLUTE COUNT (BEAKER) (test 13.48 K/ L 1.56-6.13 rxey=873) LYMPHOCYTES ABSOLUTE COUNT (BEAKER) (test 1.56 K/ L 1.18-3.74 gncr=751) MONOCYTES ABSOLUTE COUNT (BEAKER) (test 0.45 K/ L 0.24-0.36 obso=992) EOSINOPHILS ABSOLUTE COUNT (BEAKER) (test 0.69 K/ L 0.04-0.36 bfwr=682) BASOPHILS ABSOLUTE COUNT (BEAKER) (test 0.03 K/ L 0.01-0.08 emqs=566) IMMATURE GRANULOCYTES-RELATIVE PERCENT (BEAKER) 1 % 0-1 (test ylme=2077) POCT-GLUCOSE [id number] 05:44:00 Test Item Value Reference Range Comments POC-GLUCOSE METER (BEAKER) 99 mg/dL 70-110 TESTED AT [address] (test kkzm=5046) [place] [id number] POCT-GLUCOSE [id number] 23:08:00 Test Item Value Reference Range Comments POC-GLUCOSE METER (BEAKER) 107 mg/dL 70-110 TESTED AT [address] (test vmkk=4809) [facility] [address] POCT-GLUCOSE [id number] 17:56:00 Test Item Value Reference Range Comments POC-GLUCOSE METER (BEAKER) 102 mg/dL 70-110 TESTED AT [address] (test rbqn=8880) [place] [address] POCT-GLUCOSE [id number] 13:00:00 Test Item Value Reference Range Comments POC-GLUCOSE METER (BEAKER) 119 mg/dL 70-110 TESTED AT [address] (test ddmo=7055) [facility] [address] [id number] 08:26:00 Test Item Value Reference Range Comments PHOSPHORUS (BEAKER) (test nngl=153) 2.0 mg/dL 2.3-4.7 [id number] 08:26:00 Test Item Value Reference Range Comments MAGNESIUM (BEAKER) (test ctun=693) 2.2 mg/dL 1.6-2.6 BASIC METABOLIC [id number] 08:26:00 Test Item Value Reference Range Comments SODIUM (BEAKER) (test 141 meq/L 136-145 kbub=166) POTASSIUM (BEAKER) (test 3.6 meq/L 3.5-5.1 tfee=670) CHLORIDE (BEAKER) (test 108 meq/L 98-107 scfi=193) CO2 (BEAKER) (test 21 meq/L 22-29 jnbs=998) BLOOD UREA NITROGEN 19 mg/dL 7-21 (BEAKER) (test lnkg=617) CREATININE (BEAKER) (test 0.87 mg/dL 0.57-1.25 evew=669) GLUCOSE RANDOM (BEAKER) 91 mg/dL 70-105 (test egfh=149) CALCIUM (BEAKER) (test 8.5 mg/dL 8.4-10.2 radr=614) EGFR (BEAKER) (test 68 mL/min/1.73 sq m ESTIMATED GFR IS NOT tzvq=8465) ACCURATE CREATININE CLEARANCE IN PREDICTING GLOMERULAR FILTRATION RATE. ESTIMATED GFR IS NOT APPLICABLE FOR DIALYSIS PATIENTS. CBC W/PLT COUNT & AUTO [id number] 08:18:00 Test Item Value Reference Range Comments WHITE BLOOD CELL COUNT (BEAKER) (test lagm=359) 15.8 K/ L 3.5-10.5 RED BLOOD CELL COUNT (BEAKER) (test gtwm=916) 4.15 M/ L 3.93-5.22 HEMOGLOBIN (BEAKER) (test kcqc=696) 13.8 GM/DL 11.2-15.7 HEMATOCRIT (BEAKER) (test vrbx=152) 41.4 % 34.1-44.9 MEAN CORPUSCULAR VOLUME (BEAKER) (test qiol=127) 99.8 fL 79.4-94.8 MEAN CORPUSCULAR HEMOGLOBIN (BEAKER) (test 33.3 pg 25.6-32.2 tltn=896) MEAN CORPUSCULAR HEMOGLOBIN CONC (BEAKER) (test 33.3 GM/DL 32.2-35.5 btvx=821) RED CELL DISTRIBUTION WIDTH (BEAKER) (test 14.7 % 11.7-14.4 sgwi=471) PLATELET COUNT (BEAKER) (test sztz=830) 210 K/CU MM 150-450 MEAN PLATELET VOLUME (BEAKER) (test wxrj=294) 9.6 fL 9.4-12.3 NUCLEATED RED BLOOD CELLS (BEAKER) (test 0 /100 WBC 0-0 ekrr=209) NEUTROPHILS RELATIVE PERCENT (BEAKER) (test 86 % rmkx=585) LYMPHOCYTES RELATIVE PERCENT (BEAKER) (test 8 % fhdc=620) MONOCYTES RELATIVE PERCENT (BEAKER) (test 3 % qlgm=311) EOSINOPHILS RELATIVE PERCENT (BEAKER) (test 2 % ikcs=075) BASOPHILS RELATIVE PERCENT (BEAKER) (test 0 % vlcl=406) NEUTROPHILS ABSOLUTE COUNT (BEAKER) (test 13.65 K/ L 1.56-6.13 ivxj=330) LYMPHOCYTES ABSOLUTE COUNT (BEAKER) (test 1.22 K/ L 1.18-3.74 gvky=613) MONOCYTES ABSOLUTE COUNT (BEAKER) (test 0.51 K/ L 0.24-0.36 vlmy=023) EOSINOPHILS ABSOLUTE COUNT (BEAKER) (test 0.26 K/ L 0.04-0.36 zuxi=741) BASOPHILS ABSOLUTE COUNT (BEAKER) (test 0.03 K/ L 0.01-0.08 gfgv=822) IMMATURE GRANULOCYTES-RELATIVE PERCENT (BEAKER) 1 % 0-1 (test zmao=4644) POCT-GLUCOSE [id number] 07:31:00 Test Item Value Reference Range Comments POC-GLUCOSE METER (BEAKER) 104 mg/dL 70-110 TESTED AT [address] (test ofmo=0271) [facility] [address] POCT-GLUCOSE [id number] 00:39:00 Test Item Value Reference Range Comments POC-GLUCOSE METER (BEAKER) 91 mg/dL 70-110 TESTED AT [address] (test yzvj=6537) [facility] [address] POCT-GLUCOSE [id number] 17:36:00 Test Item Value Reference Range Comments POC-GLUCOSE METER (BEAKER) 81 mg/dL 70-110 TESTED AT [facility] [address] (test lzxl=3995) [facility] [address] POCT-GLUCOSE [id number] 11:26:00 Test Item Value Reference Range Comments POC-GLUCOSE METER (BEAKER) 105 mg/dL 70-110 TESTED AT [address] (test tbcg=7844) [facility] [address] POCT-GLUCOSE [id number] 05:58:00 Test Item Value Reference Range Comments POC-GLUCOSE METER (BEAKER) 124 mg/dL 70-110 TESTED AT [address] (test cpgx=0725) [facility] [address] [id number] 03:33:00 Test Item Value Reference Range Comments PHOSPHORUS (BEAKER) (test jmog=936) 4.9 mg/dL 2.3-4.7 [id number] 03:33:00 Test Item Value Reference Range Comments MAGNESIUM (BEAKER) (test uwgm=198) 1.7 mg/dL 1.6-2.6 BASIC METABOLIC [id number] 03:33:00 Test Item Value Reference Range Comments SODIUM (BEAKER) (test 138 meq/L 136-145 lzdz=306) POTASSIUM (BEAKER) (test 4.5 meq/L 3.5-5.1 flul=721) CHLORIDE (BEAKER) (test 110 meq/L 98-107 kpfr=671) CO2 (BEAKER) (test 20 meq/L 22-29 gsze=558) BLOOD UREA NITROGEN 29 mg/dL 7-21 (BEAKER) (test djko=863) CREATININE (BEAKER) (test 1.12 mg/dL 0.57-1.25 ogvd=940) GLUCOSE RANDOM (BEAKER) 124 mg/dL 70-105 (test ndbv=567) CALCIUM (BEAKER) (test 8.1 mg/dL 8.4-10.2 hblk=121) EGFR (BEAKER) (test 51 mL/min/1.73 sq m ESTIMATED GFR IS NOT ucio=5083) ACCURATE CREATININE CLEARANCE IN PREDICTING GLOMERULAR FILTRATION RATE. ESTIMATED GFR IS NOT APPLICABLE FOR DIALYSIS PATIENTS. CBC W/PLT COUNT & AUTO [id number] 03:22:00 Test Item Value Reference Range Comments WHITE BLOOD CELL COUNT (BEAKER) (test vyii=047) 19.3 K/ L 3.5-10.5 RED BLOOD CELL COUNT (BEAKER) (test hudk=306) 3.62 M/ L 3.93-5.22 HEMOGLOBIN (BEAKER) (test hbnk=489) 11.9 GM/DL 11.2-15.7 HEMATOCRIT (BEAKER) (test zudz=902) 36.5 % 34.1-44.9 MEAN CORPUSCULAR VOLUME (BEAKER) (test mmvj=191) 100.8 fL 79.4-94.8 MEAN CORPUSCULAR HEMOGLOBIN (BEAKER) (test 32.9 pg 25.6-32.2 hncf=404) MEAN CORPUSCULAR HEMOGLOBIN CONC (BEAKER) (test 32.6 GM/DL 32.2-35.5 tehl=967) RED CELL DISTRIBUTION WIDTH (BEAKER) (test 14.6 % 11.7-14.4 sxhh=449) PLATELET COUNT (BEAKER) (test kasf=047) 218 K/CU MM 150-450 MEAN PLATELET VOLUME (BEAKER) (test sulv=073) 9.3 fL 9.4-12.3 NUCLEATED RED BLOOD CELLS (BEAKER) (test 0 /100 WBC 0-0 rrtd=634) NEUTROPHILS RELATIVE PERCENT (BEAKER) (test 94 % vlvc=143) LYMPHOCYTES RELATIVE PERCENT (BEAKER) (test 3 % yvsa=927) MONOCYTES RELATIVE PERCENT (BEAKER) (test 3 % hqaq=664) EOSINOPHILS RELATIVE PERCENT (BEAKER) (test 0 % ebsc=637) BASOPHILS RELATIVE PERCENT (BEAKER) (test 0 % ogig=594) NEUTROPHILS ABSOLUTE COUNT (BEAKER) (test 18.11 K/ L 1.56-6.13 ilop=457) LYMPHOCYTES ABSOLUTE COUNT (BEAKER) (test 0.55 K/ L 1.18-3.74 jpef=468) MONOCYTES ABSOLUTE COUNT (BEAKER) (test 0.53 K/ L 0.24-0.36 muhz=510) EOSINOPHILS ABSOLUTE COUNT (BEAKER) (test 0.00 K/ L 0.04-0.36 yuqb=244) BASOPHILS ABSOLUTE COUNT (BEAKER) (test 0.03 K/ L 0.01-0.08 igoa=320) IMMATURE GRANULOCYTES-RELATIVE PERCENT (BEAKER) 0 % 0-1 (test yvxj=5976) (MANUAL DIFFERENTIAL)2017-03-17 22:54:00 Test Item Value Reference Range Comments NEUTROPHILS - REL (DIFF) (BEAKER) (test 76 % kalu=0062) LYMPHOCYTES - REL (DIFF) (BEAKER) (test 4 % xzxc=2139) MONOCYTES - REL (DIFF) (BEAKER) (test jewt=7845) 2 % EOSINOPHILS - REL (DIFF) (BEAKER) (test 1 % xdye=5537) BANDS - REL (DIFF) (BEAKER) (test gviv=0214) 17 % 0-10 NEUTROPHILS - ABS (DIFF) (BEAKER) (test 12.01 K/ L 1.80-8.00 wyql=8689) LYMPHOCYTES - ABS (DIFF) (BEAKER) (test 0.63 K/ L 1.48-4.50 usmc=1523) MONOCYTES - ABS (DIFF) (BEAKER) (test bxrq=9617) 0.32 K/ L 0.00-1.30 EOSINOPHILS - ABS (DIFF) (BEAKER) (test 0.16 K/ L 0.00-0.50 avpo=0417) BANDS-ABS (DIFF) (BEAKER) (test bmpk=4578) 2.7 K/ L 0.0-0.8 TOTAL COUNTED (BEAKER) (test zgbm=9276) 100 BANDS + SEGMENTED NEUTROPHILS (BEAKER) (test 14.69 ofcg=7711) WBC MORPHOLOGY (BEAKER) (test mtri=621) Normal PLT MORPHOLOGY (BEAKER) (test lxcf=376) Normal RBC MORPHOLOGY (BEAKER) (test ayep=853) Normal CBC W/PLT COUNT & AUTO [id number] 22:53:00 Test Item Value Reference Range Comments WHITE BLOOD CELL COUNT (BEAKER) (test bvtc=300) 15.8 K/ L 3.5-10.5 RED BLOOD CELL COUNT (BEAKER) (test utjb=547) 3.54 M/ L 3.93-5.22 HEMOGLOBIN (BEAKER) (test rrbq=139) 11.8 GM/DL 11.2-15.7 HEMATOCRIT (BEAKER) (test miow=692) 36.0 % 34.1-44.9 MEAN CORPUSCULAR VOLUME (BEAKER) (test qgou=346) 101.7 fL 79.4-94.8 MEAN CORPUSCULAR HEMOGLOBIN (BEAKER) (test 33.3 pg 25.6-32.2 zoyf=854) MEAN CORPUSCULAR HEMOGLOBIN CONC (BEAKER) (test 32.8 GM/DL 32.2-35.5 mqyl=978) RED CELL DISTRIBUTION WIDTH (BEAKER) (test 14.6 % 11.7-14.4 cvao=395) PLATELET COUNT (BEAKER) (test jebl=916) 192 K/CU MM 150-450 MEAN PLATELET VOLUME (BEAKER) (test wewf=376) 9.4 fL 9.4-12.3 NUCLEATED RED BLOOD CELLS (BEAKER) (test 0 /100 WBC 0-0 avcb=977) NEUTROPHILS RELATIVE PERCENT (BEAKER) (test 91 % nitv=057) LYMPHOCYTES RELATIVE PERCENT (BEAKER) (test 6 % kfof=476) MONOCYTES RELATIVE PERCENT (BEAKER) (test 3 % qvdk=143) EOSINOPHILS RELATIVE PERCENT (BEAKER) (test 0 % ndzm=887) BASOPHILS RELATIVE PERCENT (BEAKER) (test 0 % xbrl=434) NEUTROPHILS ABSOLUTE COUNT (BEAKER) (test 14.33 K/ L 1.56-6.13 qthh=085) LYMPHOCYTES ABSOLUTE COUNT (BEAKER) (test 0.87 K/ L 1.18-3.74 tnuo=211) MONOCYTES ABSOLUTE COUNT (BEAKER) (test 0.51 K/ L 0.24-0.36 okgl=474) EOSINOPHILS ABSOLUTE COUNT (BEAKER) (test 0.04 K/ L 0.04-0.36 ehtf=521) BASOPHILS ABSOLUTE COUNT (BEAKER) (test 0.02 K/ L 0.01-0.08 igdl=194) IMMATURE GRANULOCYTES-RELATIVE PERCENT (BEAKER) 0 % 0-1 (test memc=5078) COMPREHENSIVE METABOLIC [id number] 22:37:00 Test Item Value Reference Range Comments TOTAL PROTEIN (BEAKER) 5.3 gm/dL 6.0-8.3 (test ocuw=831) ALBUMIN (BEAKER) (test 2.9 g/dL 3.5-5.0 kehc=2324) ALKALINE PHOSPHATASE 60 U/L 40-150 (BEAKER) (test vfay=178) BILIRUBIN TOTAL (BEAKER) 0.8 mg/dL 0.2-1.2 (test qhjo=861) SODIUM (BEAKER) (test 137 meq/L 136-145 wvoc=653) POTASSIUM (BEAKER) (test 3.9 meq/L 3.5-5.1 qwas=965) CHLORIDE (BEAKER) (test 109 meq/L 98-107 iwhn=049) CO2 (BEAKER) (test 20 meq/L 22-29 uqfd=744) BLOOD UREA NITROGEN 34 mg/dL 7-21 (BEAKER) (test lzui=904) CREATININE (BEAKER) (test 1.27 mg/dL 0.57-1.25 ezjn=164) GLUCOSE RANDOM (BEAKER) 115 mg/dL 70-105 (test clpf=484) CALCIUM (BEAKER) (test 7.9 mg/dL 8.4-10.2 pnoc=682) AST (SGOT) (BEAKER) (test 51 U/L 5-34 smte=501) ALT (SGPT) (BEAKER) (test 37 U/L 6-55 flzc=670) EGFR (BEAKER) (test 44 mL/min/1.73 sq m ESTIMATED GFR IS NOT zaxq=5470) ACCURATE CREATININE CLEARANCE IN PREDICTING GLOMERULAR FILTRATION RATE. ESTIMATED GFR IS NOT APPLICABLE FOR DIALYSIS PATIENTS. [id number] 22:36:00 Test Item Value Reference Range Comments PHOSPHORUS (BEAKER) (test vcpy=244) 4.4 mg/dL 2.3-4.7 [id number] 22:36:00 Test Item Value Reference Range Comments MAGNESIUM (BEAKER) (test tida=018) 1.3 mg/dL 1.6-2.6 BLOOD GAS, [id number] 22:31:00 Test Item Value Reference Range Comments PH ARTERIAL (BEAKER) (test tssi=733) 7.29 7.35-7.45 PCO2 ARTERIAL (BEAKER) (test gonk=553) 33 mmHg 35-45 PO2 ARTERIAL (BEAKER) (test zylt=287) 76 mmHg 80-90 O2 SATURATION ARTERIAL (BEAKER) (test ctqw=970) 94.5 % 96.0-97.0 HCO3 ARTERIAL (BEAKER) (test eycb=406) 16 mmol/L 21-29 BASE EXCESS ARTERIAL (BEAKER) (test faya=849) -10.1 mmol/L -2.0-3.0 PATIENT TEMPERATURE (BEAKER) (test lsvp=0844) 36.4 C FIO2 (BEAKER) (test ivpd=9395) 28.0 % RAD, ABDOMEN/KUB, 1 VIEW [id number] 22:20:00Reason for exam:->ngt placementFINAL REPORT RAD, ABDOMEN/KUB, 1 VIEW AP CLINICAL INDICATION: "ngt placement" COMPARISON: None TECHNIQUE: Single, frontal radiograph of the abdomen. IMPRESSION: Enteric tube terminates in the expected portion of the gastric body.Nonspecific nonobstructive bowel gas pattern.No pneumatosis or obvious pneumoperitoneum.No acute osseous abnormality. Signed: Tony Celaya MDReport Verified Date/Time: 03/17/2017 22 :20:51 Reading Location: [facility] [id number] Ortho Consult Reading Room (MANUAL DIFFERENTIAL)2017-03-17 17:58:00 Test Item Value Reference Range Comments NEUTROPHILS - REL (DIFF) (BEAKER) (test 72 % hivi=6301) LYMPHOCYTES - REL (DIFF) (BEAKER) (test 10 % vxww=7990) MONOCYTES - REL (DIFF) (BEAKER) (test cqbe=9396) 4 % BANDS - REL (DIFF) (BEAKER) (test kyfk=8753) 14 % 0-10 NEUTROPHILS - ABS (DIFF) (BEAKER) (test 11.38 K/ L 1.80-8.00 mpos=2468) LYMPHOCYTES - ABS (DIFF) (BEAKER) (test 1.58 K/ L 1.48-4.50 fuqr=3614) MONOCYTES - ABS (DIFF) (BEAKER) (test bhaz=7025) 0.63 K/ L 0.00-1.30 BANDS-ABS (DIFF) (BEAKER) (test miqy=8218) 2.2 K/ L 0.0-0.8 TOTAL COUNTED (BEAKER) (test ttlc=5160) 100 BANDS + SEGMENTED NEUTROPHILS (BEAKER) (test 13.59 pzhu=4707) WBC MORPHOLOGY (BEAKER) (test nkbk=260) Normal PLT MORPHOLOGY (BEAKER) (test pcaf=586) Normal RBC MORPHOLOGY (BEAKER) (test trlq=706) Normal CBC W/PLT COUNT & AUTO [id number] 17:57:00 Test Item Value Reference Range Comments WHITE BLOOD CELL COUNT (BEAKER) (test kamn=171) 15.8 K/ L 3.5-10.5 RED BLOOD CELL COUNT (BEAKER) (test lhuw=789) 3.93 M/ L 3.93-5.22 HEMOGLOBIN (BEAKER) (test unph=401) 13.1 GM/DL 11.2-15.7 HEMATOCRIT (BEAKER) (test mwkj=170) 39.5 % 34.1-44.9 MEAN CORPUSCULAR VOLUME (BEAKER) (test wljt=476) 100.5 fL 79.4-94.8 MEAN CORPUSCULAR HEMOGLOBIN (BEAKER) (test 33.3 pg 25.6-32.2 zcgm=164) MEAN CORPUSCULAR HEMOGLOBIN CONC (BEAKER) (test 33.2 GM/DL 32.2-35.5 iwyg=192) RED CELL DISTRIBUTION WIDTH (BEAKER) (test 14.6 % 11.7-14.4 bxln=242) PLATELET COUNT (BEAKER) (test lmvn=040) 234 K/CU MM 150-450 MEAN PLATELET VOLUME (BEAKER) (test lwny=367) 9.5 fL 9.4-12.3 NUCLEATED RED BLOOD CELLS (BEAKER) (test 0 /100 WBC 0-0 fkpq=325) NEUTROPHILS RELATIVE PERCENT (BEAKER) (test 87 % bvph=573) LYMPHOCYTES RELATIVE PERCENT (BEAKER) (test 7 % yskd=099) MONOCYTES RELATIVE PERCENT (BEAKER) (test 5 % afvv=995) EOSINOPHILS RELATIVE PERCENT (BEAKER) (test 0 % yhvw=124) BASOPHILS RELATIVE PERCENT (BEAKER) (test 0 % ygxt=703) NEUTROPHILS ABSOLUTE COUNT (BEAKER) (test 13.84 K/ L 1.56-6.13 mtbv=158) LYMPHOCYTES ABSOLUTE COUNT (BEAKER) (test 1.16 K/ L 1.18-3.74 hzja=212) MONOCYTES ABSOLUTE COUNT (BEAKER) (test 0.72 K/ L 0.24-0.36 mnzp=267) EOSINOPHILS ABSOLUTE COUNT (BEAKER) (test 0.04 K/ L 0.04-0.36 xdne=245) BASOPHILS ABSOLUTE COUNT (BEAKER) (test 0.03 K/ L 0.01-0.08 hory=812) IMMATURE GRANULOCYTES-RELATIVE PERCENT (BEAKER) 0 % 0-1 (test zhso=3718) [id number] 17:14:00 Test Item Value Reference Range Comments PARTIAL THROMBOPLASTIN TIME (BEAKER) (test 21.4 seconds 22.5-36.0 cidq=127) CREATINE KINASE (CK), TOTAL AND [id number] 17:10:00 Test Item Value Reference Range Comments CREATINE KINASE TOTAL (BEAKER) (test xrcs=344) 39 U/L 29-200 CREATINE KINASE-MB (BEAKER) (test jtqj=946) 1.2 ng/mL 0.0-6.6 CREATINE KINASE-MB INDEX (BEAKER) (test snvb=954) 3.1 % CK-MB Reference Range:<6.7 Normal6.7-10.0 Borderline>10.0 AbnormalTROPONIN [id number] 17:10:00 Test Item Value Reference Range Comments TROPONIN I (BEAKER) (test hheq=114) < ng/mL 0.00-0.03 Troponin I (TnI) levels [...] failure, acidosis, acute neurological disease, and persistent tachyarrhythmia.[id number] 17:09:00 Test Item Value Reference Range Comments MAGNESIUM (BEAKER) (test 1.9 mg/dL 1.6-2.6 Specimen slightly hemolyzed cqmd=663) [id number] 17:09:00 Test Item Value Reference Range Comments PHOSPHORUS (BEAKER) (test 4.1 mg/dL 2.3-4.7 Specimen slightly hemolyzed yzof=965) BASIC METABOLIC [id number] 17:09:00 Test Item Value Reference Range Comments SODIUM (BEAKER) (test 137 meq/L 136-145 dfkd=039) POTASSIUM (BEAKER) (test 4.2 meq/L 3.5-5.1 Specimen slightly eucg=874) hemolyzed CHLORIDE (BEAKER) (test 109 meq/L 98-107 hndn=741) CO2 (BEAKER) (test 19 meq/L 22-29 iznd=907) BLOOD UREA NITROGEN 37 mg/dL 7-21 (BEAKER) (test lfvk=213) CREATININE (BEAKER) (test 1.33 mg/dL 0.57-1.25 Specimen slightly xbho=955) hemolyzed GLUCOSE RANDOM (BEAKER) 105 mg/dL 70-105 (test ssah=400) CALCIUM (BEAKER) (test 8.6 mg/dL 8.4-10.2 gbff=334) EGFR (BEAKER) (test 41 mL/min/1.73 sq m ESTIMATED GFR IS NOT suyt=1780) ACCURATE CREATININE CLEARANCE IN PREDICTING GLOMERULAR FILTRATION RATE. ESTIMATED GFR IS NOT APPLICABLE FOR DIALYSIS PATIENTS. HEPATIC FUNCTION [id number] 17:09:00 Test Item Value Reference Range Comments TOTAL PROTEIN (BEAKER) (test 6.5 gm/dL 6.0-8.3 Specimen slightly hemolyzed rqgm=505) ALBUMIN (BEAKER) (test 3.4 g/dL 3.5-5.0 Specimen slightly hemolyzed fduw=0325) BILIRUBIN TOTAL (BEAKER) (test 0.8 mg/dL 0.2-1.2 Specimen slightly hemolyzed owxk=785) BILIRUBIN DIRECT (BEAKER) (test 0.3 mg/dL 0.1-0.5 Specimen slightly hemolyzed pbln=454) ALKALINE PHOSPHATASE (BEAKER) 73 U/L 40-150 (test tugc=062) AST (SGOT) (BEAKER) (test 16 U/L 5-34 Specimen slightly hemolyzed jqgn=744) ALT (SGPT) (BEAKER) (test 14 U/L 6-55 Specimen slightly hemolyzed xbyv=507) PROTHROMBIN [id number] 16:48:00 Test Item Value Reference Range Comments PROTIME (BEAKER) (test cnph=626) 13.9 seconds 11.7-14.7 INR (BEAKER) (test nmss=776) 1.1 <=5.9 RECOMMENDED COUMADIN/WARFARIN INR THERAPY RANGESSTANDARD DOSE: 2.0 - 3.0 Includes: PROPHYLAXIS forvenous thrombosis, systemic embolization; TREATMENT for venous thrombosis and/or pulmonary embolus.HIGH RISK: Target INR is 2.5-3.5 for patients with mechanical heart valves.PROTHROMBIN [id number] 16:47: 00 Test Item Value Reference Range Comments PROTIME (BEAKER) (test heuv=702) 13.9 seconds 11.7-14.7 INR (BEAKER) (test hbnp=155) 1.1 <=5.9 RECOMMENDED COUMADIN/WARFARIN INR THERAPY RANGESSTANDARD DOSE: 2.0 - 3.0 Includes: PROPHYLAXIS forvenous thrombosis, systemic embolization; TREATMENT for venous thrombosis and/or pulmonary embolus.HIGH RISK: Target INR is 2.5-3.5 for patients with mechanical heart valves.
--- NOTE | 2018-08-04 14:56 | RAD REPORT ---
EXAM DESCRIPTION: [facility] Single View08/04/2018 2:46 pm CLINICAL HISTORY: Chest pain COMPARISON: September 2017 FINDINGS: The lungs appear clear of acute infiltrate. The heart is normal size IMPRESSION: No acute abnormalities displayed
--- NOTE | 2018-08-04 14:56 | RAD REPORT ---
EXAM DESCRIPTION: RAD - Ribs Left - 08/04/2018 2:46 pm CLINICAL HISTORY: Left rib pain FINDINGS: Several old left rib fractures are seen. The bones are osteoporotic. Cortical irregularity involves the left ninth posterior rib which is equivocal for a nondisplaced fra cture.
--- NOTE | 2018-08-04 15:11 | EDPHYS ---
Physician Documentation [facility] Name: Norma Boggs Age: 57 yrs Sex: Female : 1960 Arrival Date: 08/04/2018 Time: 13:38 Bed 19 Private MD: ED Physician Jeremy Cruz HPI: 08/04 15:06 This 57 yrs old Female presents to ER via Ambulatory with complaints of Rib kb Pain. 15:06 The patient or guardian reports chest pain that is located primarily in the anterior kb chest wall, left lateral anterior chest and left lateral posterior chest and left subscapular area. Onset: The symptoms/episode began/occurred 3 day(s) ago. The pain does not radiate. Associated signs and symptoms: The patient has no apparent associated signs or symptoms. The chest pain is described as aching. Duration: The patient or guardian reports a single episode, that is still ongoing. Modifying factors: The symptoms are alleviated by remaining still, the symptoms are aggravated by cough, deep breath, movement, palpation of area. Severity of pain: At its worst the pain was moderate in the emergency department the pain is unchanged. The patient has experienced similar episodes in the past. The patient has not recently seen a physician. Pt reports she fell a couple of days ago and has had pain to left posterior chest since then. Believes she bruised a rib, but has also had congestion so she thought she should get checked out. Historical: - Allergies: 13:43 No Known Allergies; sg - PMHx: 13:43 BOWEL PERFORATION; carpal tunnel; Diverticulitis; Hypertension; Thyroid problem; sg - Immunization history:: Adult Immunizations up to date. - Social history:: Smoking status: Patient/guardian denies using tobacco. - Ebola Screening: : Patient negative for fever greater than or equal to 101.5 degrees Fahrenheit, and additional compatible Ebola Virus Disease symptoms Patient denies exposure to infectious person Patient denies travel to an Ebola-affected area in the 21 days before illness onset No symptoms or risks identified at this time. ROS: 15:04 Constitutional: Negative for fever, chills, and weight loss, ENT: Negative for injury, kb pain, and discharge, Neck: Negative for injury, pain, and swelling, Respiratory: Negative for shortness of breath, cough, wheezing, and pleuritic chest pain, Abdomen/GI: Negative for abdominal pain, nausea, vomiting, diarrhea, and constipation, MS/Extremity: Negative for injury and deformity, Skin: Negative for injury, rash, and discoloration, Neuro: Negative for headache, weakness, numbness, tingling, and seizure. 15:04 Cardiovascular: Positive for chest pain, with cough, with movement, of the left subscapular area, left lateral posterior chest and left lateral anterior chest, Negative for edema, orthopnea, palpitations, paroxysmal nocturnal dyspnea. Exam: 15:06 Constitutional: This is a well developed, well nourished patient who is awake, alert, kb and in no acute distress. Head/Face: Normocephalic, atraumatic. ENT: Nares patent. No nasal discharge, no septal abnormalities noted. Tympanic membranes are normal and external auditory canals are clear. Oropharynx with no redness, swelling, or masses, exudates, or evidence of obstruction, uvula midline. Mucous membranes moist. Neck: Trachea midline, no thyromegaly or masses palpated, and no cervical lymphadenopathy. Supple, full range of motion without nuchal rigidity, or vertebral point tenderness. No Meningismus. Cardiovascular: Regular rate and rhythm with a normal S1 and S2. No gallops, murmurs, or rubs. Normal PMI, no JVD. No pulse deficits. Respiratory: Lungs have equal breath sounds bilaterally, clear to auscultation and percussion. No rales, rhonchi or wheezes noted. No increased work of breathing, no retractions or nasal flaring. Abdomen/GI: Soft, non-tender, with normal bowel sounds. No distension or tympany. No guarding or rebound. No evidence of tenderness throughout. Skin: Warm, dry with normal turgor. Normal color with no rashes, no lesions, and no evidence of cellulitis. MS/ Extremity: Pulses equal, no cyanosis. Neurovascular intact. Full, normal range of motion. Neuro: Awake and alert, GCS 15, oriented to person, place, time, and situation. Cranial nerves II-XII grossly intact. Motor strength 5/5 in all extremities. Sensory grossly intact. Cerebellar exam normal. Normal gait. 15:06 Chest/axilla: Inspection: normal, Palpation: tenderness, that is mild, of the left lateral posterior chest and left lateral anterior chest and left subscapular area, that totally reproduces the patient's complaints. Vital Signs: 13:51 BP 148 / 101; Pulse 87; Resp 17; Temp 98.4; Pulse Ox 96% on R/A; Weight 69.85 kg; sg Height 5 ft. 4 in. (162.56 cm); Pain 10/10; 15:19 BP 142 / 95; Pulse 85; Resp 16 S; Pulse Ox 100% on R/A; jl7 13:51 Body Mass Index 26.43 (69.85 kg, 162.56 cm) MDM: 14:29 Patient medically screened. kb 15:05 Data reviewed: vital signs, nurses notes. Data interpreted: Pulse oximetry: on room air kb is 96 %. Interpretation: normal. Counseling: I had a detailed discussion with the patient and/or guardian regarding: the historical points, exam findings, and any diagnostic results supporting the discharge/admit diagnosis, radiology results, the need for outpatient follow up, a family practitioner, to return to the emergency department if symptoms worsen or persist or if there are any questions or concerns that arise at home. 08/04 14:11 Order name: Chest Single View XRAY; Complete Time: 14:57 kb 08/04 14:11 Order name: Ribs Left XRAY; Complete Time: 14:57 kb Administered Medications: No medications were administered Disposition: 15:25 Co-signature as Attending Physician, Jeremy Cruz MD. rn Disposition: 08/04/18 15:11 Discharged to Home. Impression: Fracture of one rib, left side. - Condition is Stable. - Discharge Instructions: Rib Fracture, [id number]. - Prescriptions for Tramadol 50 mg Oral Tablet - take 1 tablet by ORAL route every 8 hours as needed; 12 tablet. - Medication Reconciliation Form, Thank You Letter, Antibiotic Education, Prescription Opioid Use form. - Follow up: Emergency Department; When: As needed; Reason: Worsening of condition. Follow up: Private Physician; When: 2 - 3 days; Reason: Recheck today's complaints, Continuance of care, Re-evaluation by your physician. Signatures: Dispatcher [employer] EDMS Chacha Zimmerman, Tonny Cortez RN Jeremy Garcia MD MD rn Leal, Jahala, RN RN jl7 Corrections: (The following items were deleted from the chart) 15:20 15:11 08/04/2018 15:11 Discharged to Home. Impression: Fracture of one rib, left side. jl7 Condition is Stable. Forms are Medication Reconciliation Form, Thank You Letter, Antibiotic Education, Prescription Opioid Use. Follow up: Emergency Department; When: As needed; Reason: Worsening of condition. Follow up: Private Physician; When: 2 - 3 days; Reason: Recheck today's complaints, Continuance of care, Re-evaluation by your physician. kb
--- NOTE | 2018-08-04 15:11 | ER ---
Nurse's Notes [facility] Name: Norma Boggs Age: 57 yrs Sex: Female : 1960 Arrival Date: 08/04/2018 Time: 13:38 Bed 19 Private MD: Diagnosis: Fracture of one rib, left side Presentation: 08/04 13:43 Risk Assessment: Do you want to hurt yourself or someone else? Patient reports no sg desire to harm self or others. Initial Sepsis Screen: Does the patient meet any 2 criteria? No. Patient's initial sepsis screen is negative. Does the patient have a suspected source of infection? No. Patient's initial sepsis screen is negative. Care prior to arrival: None. 13:43 Acuity: ADBULLAHI 4 sg 13:43 Presenting complaint: Patient states: fell 2-3 days ago, reports pain in the left upper sg back and left rib area, reports just felt like it was badly bruised, well last night I rolled over in bed and the pain got extremely worse with a popping sound, no I have some chest congestion on the left side as well and the pain with the cough of course. sx scheduled for repair to the right shoulder. Transition of care: patient was not received from another setting of care. Onset of symptoms was August 04, 2018. 13:43 Method Of Arrival: Ambulatory sg Historical: - Allergies: 13:43 No Known Allergies; sg - PMHx: 13:43 BOWEL PERFORATION; carpal tunnel; Diverticulitis; Hypertension; Thyroid problem; sg - Immunization history:: Adult Immunizations up to date. - Social history:: Smoking status: Patient/guardian denies using tobacco. - Ebola Screening: : Patient negative for fever greater than or equal to 101.5 degrees Fahrenheit, and additional compatible Ebola Virus Disease symptoms Patient denies exposure to infectious person Patient denies travel to an Ebola-affected area in the 21 days before illness onset No symptoms or risks identified at this time. Screenin:45 Abuse screen: Denies threats or abuse. Denies injuries from another. Nutritional jl7 screening: No deficits noted. Tuberculosis screening: No symptoms or risk factors identified. Fall Risk None identified. Assessment: 14:45 General: Appears in no apparent distress. uncomfortable, Behavior is calm, cooperative, jl7 appropriate for age. Pain: Complains of pain in posterior aspect of left lateral abdomen and anterior aspect of left lateral abdomen Pain currently is 4 out of 10 on a pain scale. at worst was 8 out of 10 on a pain scale. Neuro: Level of Consciousness is awake, alert, obeys commands, Oriented to person, place, time, situation. Cardiovascular: Patient's skin is warm and dry. Respiratory: Airway is patent Respiratory effort is even, unlabored, Respiratory pattern is regular, symmetrical. Derm: Skin is pink, warm \T\ dry. Vital Signs: 13:51 BP 148 / 101; Pulse 87; Resp 17; Temp 98.4; Pulse Ox 96% on R/A; Weight 69.85 kg; sg Height 5 ft. 4 in. (162.56 cm); Pain 10/10; 15:19 BP 142 / 95; Pulse 85; Resp 16 S; Pulse Ox 100% on R/A; jl7 13:51 Body Mass Index 26.43 (69.85 kg, 162.56 cm) sg ED Course: 13:38 Patient arrived in ED. rg4 13:43 Arm band placed on. sg 13:44 Triage completed. sg 14:27 Fermin Meneses, IGNACIO is Primary Nurse. jl7 14:29 Chacha Zimmerman FNP-C [facility]. kb 14:29 Jeremy Cruz MD is Attending Physician. kb 14:29 Patient moved to radiology via wheelchair. jb2 14:39 Chest Single View XRAY In Process Unspecified. EDMS 14:39 Ribs Left XRAY In Process Unspecified. EDMS 14:45 Patient has correct armband on for positive identification. Bed in low position. Call jl7 light in reach. Side rails up X 1. 15:18 No provider procedures requiring assistance completed. Patient did not have IV access jl7 during this emergency room visit. Administered Medications: No medications were administered Outcome: 15:11 Discharge ordered by . kb 15:20 Discharged to home ambulatory. jl7 15:20 Condition: stable 15:20 Discharge instructions given to patient, Instructed on discharge instructions, follow up and referral plans. medication usage, Demonstrated understanding of instructions, follow-up care, medications, Prescriptions given X 1. 15:20 Patient left the ED. jl7 Signatures: Dispatcher [employer] EDMS Chacha Zimmerman FNP-C FNP-Ckb Gay, Steven, RN RN sg Mark Ordonez2 Crystal Henderson4 Fermin Meneses RN RN jl7
== END 2018-08-04 15:20 | disposition home or self-care (01) ==
LOC: ER 13:36
DX: S22.32XA Fracture of one rib, left side, initial encounter for closed fracture (principal); W19.XXXA Unspecified fall, initial encounter; Y93.9 Activity, unspecified; Y92.9 Unspecified place or not applicable; I10 Essential (primary) hypertension
CPT/HCPCS: 71045; 99283

== ENCOUNTER 2018-08-21 21:38 | Emergency (ER) | payer OTHER ==
--- OUTSIDE RECORDS SUMMARY | 2018-08-21 21:39 | XMS REPORT | Clinical Summary ---
:1960 Author Organization [facility] Address [address] [place] [address] Care Team Providers Name Role Phone Unavailable [...] Not on file Results Not on fileafter 08/20/2017 Insurance Payer Benefit Plan / Group Subscriber ID Type Phone Address [facility] CHOICE xxxxxxxxxxxx HMO/POS [phone] CHOICE EXCHANGE Advance Directives For more information, please contact:[address] [phone] Code Status Date Activated Date Inactivated Comments Full Code 03/17/2017 3:19 PM 03/21/2017 9:59 PM This code status was determined by: Patient Name Relationship Healthcare Agent Relationship Phone Hannah Boggs Daughter First alternate healthcare agent [phone] Scarlett Olmstead Other Second alternate healthcare agent [phone]
--- OUTSIDE RECORDS SUMMARY | 2018-08-21 21:41 | XMS REPORT ---
:1960 [facility] [address] [place] [address] Dr. Freeman [address] [place] [id number] Care Team Providers Name Role Phone ALETA BLACKWELL Unavailable Unavailable Problems This patient has no known problems. Allergies, Adverse Reactions, Alerts This patient has no known allergies or adverse reactions. Medications This patient has no known medications. Results Test Description Test Time Test Comments Text Results Atomic Results Result Comments BLOOD CULTURE 2017-03-22 23:00:00 Test Item Value Reference Range Comments CULTURE (BEAKER) (test fdgb=2107) No growth in 5 days BLOOD [id number] 23:00:00 Test Item Value Reference Range Comments CULTURE (BEAKER) (test shfd=7218) No growth in 5 days ANAEROBIC [id number] 04:03:00 Test Item Value Reference Range Comments CULTURE (BEAKER) (test eqbe=6367) No anaerobes isolated TISSUE [id number] 18:46:00Surgical Pathology Report Case: [id number] Authorizing Provider: Aleta Blackwell MD Collected: 03/17/20172024 Ordering Location: [address] Received: 03/18/2017 0801 Cardiovascular Pathologist: Sania Chambers MD Specimen: Gastric, Gastric antrum Biopsy This addendum is being issued to report the GMS stain.RESULT:- GMS stain highlights non-branching fungal pseudohyphal elements. Morphologically, these are suggestive of Amber species. - It is possible that this could represent colonization of the mucosa post- ulceration- Clinical and radiologic correlation is recommended.[id number] electronically signed by Sania Chambers MD on 03/21/2017 at 6:46 PMA. STOMACH,ANTRUM, BIOPSY: - GASTRIC WALL WITH ULCERATION AND MARKED ACUTE AND CHRONIC INFLAMMATION - NEGATIVE FOR MALIGNANCY - SEE COMMENT AND MICROSCOPIC DESCRIPTION Signing Pathologist Direct Phone Line: [phone] signed by Sania Chambers MD on 03/21/2017 at 5:51 PMPreliminary result electronically signed by Sania Chambers MD on 2016 at 10:07 AMGiven the presence of non-specific refractile polarizable fragments in the superficial mucosa and deeper gastric wall, medication induced gastritis and subsequent ulceration is a possibility. Possibility of a contaminant cannot be entirely excluded. Clinical and radiologic correlation is recommended.[id number] perforationGastric antrum biopsyA. Received in formalin labeled [...] developed and its performance characteristics determined by [facility] Pathology Laboratory. It has not been cleared [...] to perform high complexity clinical laboratory testing.CT, [id number] 18:07:00Please give IV and ORAL contrast to [...] MDReport Verified Date/Time: 03/21/2017 18:07:08 Reading Location: [facility] B1 C013Y CT Body Reading Room POCT-GLUCOSE [id number] 17:34:00 Test Item Value Reference Range Comments POC-GLUCOSE METER (BEAKER) 111 mg/dL 70-110 TESTED AT [address] (test rbnw=0114) [place] [address] SURGICALLY OBTAINED CULTURE + GRAM [id number] 15:37:00 Test Item Value Reference Range Comments CULTURE (BEAKER) (test 1+ Amber raok=7811) albicans GRAM STAIN RESULT 2+ White blood (BEAKER) (test cells seen xuft=6659) GRAM STAIN RESULT No organisms seen (BEAKER) (test zups=148652) CULTURE (BEAKER) (test uxpn=5335) 5-Flurocytosine (test hnpm=216) Caspofungin acetate (test phtg=135) Fluconazole (test rwfn=700) Itraconazole (test quwm=386) Micafungin (test sheq=551) Voriconazole (test eqig=423) Amphotericin B (test Susceptible >0-0 , No tggr=584) Interpretations Established <=0 or >0 Posaconazole (test Susceptible >0-0 , No wmuo=473) Interpretations Established <=0 or >0 GRAM STAIN RESULT No organisms seen (BEAKER) (test scke=474672) POCT-GLUCOSE [id number] 12:25:00 Test Item Value Reference Range Comments POC-GLUCOSE METER (BEAKER) 88 mg/dL 70-110 TESTED AT [address] (test kgaa=9756) [place] [address] [id number] 05:41:00 Test Item Value Reference Range Comments PHOSPHORUS (BEAKER) (test ewpn=279) 2.8 mg/dL 2.3-4.7 [id number] 05:41:00 Test Item Value Reference Range Comments MAGNESIUM (BEAKER) (test zwis=381) 2.1 mg/dL 1.6-2.6 BASIC METABOLIC [id number] 05:41:00 Test Item Value Reference Range Comments SODIUM (BEAKER) (test 137 meq/L 136-145 owkp=488) POTASSIUM (BEAKER) (test 2.9 meq/L 3.5-5.1 uwmd=244) CHLORIDE (BEAKER) (test 101 meq/L 98-107 lxyg=238) CO2 (BEAKER) (test 25 meq/L 22-29 ewip=647) BLOOD UREA NITROGEN 9 mg/dL 7-21 (BEAKER) (test itib=240) CREATININE (BEAKER) (test 0.69 mg/dL 0.57-1.25 zijo=797) GLUCOSE RANDOM (BEAKER) 93 mg/dL 70-105 (test zcsd=593) CALCIUM (BEAKER) (test 8.8 mg/dL 8.4-10.2 lzvw=076) EGFR (BEAKER) (test 88 mL/min/1.73 sq m ESTIMATED GFR IS NOT zhkc=5213) ACCURATE CREATININE CLEARANCE IN PREDICTING GLOMERULAR FILTRATION RATE. ESTIMATED GFR IS NOT APPLICABLE FOR DIALYSIS PATIENTS. CBC W/PLT COUNT & AUTO [id number] 05:34:00 Test Item Value Reference Range Comments WHITE BLOOD CELL COUNT (BEAKER) (test ctvs=696) 13.1 K/ L 3.5-10.5 RED BLOOD CELL COUNT (BEAKER) (test uuoj=834) 3.74 M/ L 3.93-5.22 HEMOGLOBIN (BEAKER) (test aebf=552) 12.3 GM/DL 11.2-15.7 HEMATOCRIT (BEAKER) (test wqon=626) 35.7 % 34.1-44.9 MEAN CORPUSCULAR VOLUME (BEAKER) (test tbov=071) 95.5 fL 79.4-94.8 MEAN CORPUSCULAR HEMOGLOBIN (BEAKER) (test 32.9 pg 25.6-32.2 vfrq=196) MEAN CORPUSCULAR HEMOGLOBIN CONC (BEAKER) (test 34.5 GM/DL 32.2-35.5 txan=922) RED CELL DISTRIBUTION WIDTH (BEAKER) (test 13.8 % 11.7-14.4 gcjp=882) PLATELET COUNT (BEAKER) (test shuo=261) 251 K/CU MM 150-450 MEAN PLATELET VOLUME (BEAKER) (test ngmx=275) 8.9 fL 9.4-12.3 NUCLEATED RED BLOOD CELLS (BEAKER) (test 0 /100 WBC 0-0 lfvz=277) NEUTROPHILS RELATIVE PERCENT (BEAKER) (test 77 % xuwe=764) LYMPHOCYTES RELATIVE PERCENT (BEAKER) (test 12 % zrkl=736) MONOCYTES RELATIVE PERCENT (BEAKER) (test 5 % kskw=569) EOSINOPHILS RELATIVE PERCENT (BEAKER) (test 5 % sbsb=270) BASOPHILS RELATIVE PERCENT (BEAKER) (test 0 % exgf=960) NEUTROPHILS ABSOLUTE COUNT (BEAKER) (test 10.05 K/ L 1.56-6.13 fccx=004) LYMPHOCYTES ABSOLUTE COUNT (BEAKER) (test 1.54 K/ L 1.18-3.74 qnsb=911) MONOCYTES ABSOLUTE COUNT (BEAKER) (test 0.67 K/ L 0.24-0.36 dvhr=599) EOSINOPHILS ABSOLUTE COUNT (BEAKER) (test 0.61 K/ L 0.04-0.36 cqom=074) BASOPHILS ABSOLUTE COUNT (BEAKER) (test 0.03 K/ L 0.01-0.08 hvvm=465) IMMATURE GRANULOCYTES-RELATIVE PERCENT (BEAKER) 1 % 0-1 (test rnph=3321) POCT-GLUCOSE [id number] 05:14:00 Test Item Value Reference Range Comments POC-GLUCOSE METER (BEAKER) 98 mg/dL 70-110 TESTED AT [address] (test fqxf=0402) [place] [address] POCT-GLUCOSE [id number] 00:28:00 Test Item Value Reference Range Comments POC-GLUCOSE METER (BEAKER) 104 mg/dL 70-110 TESTED AT [address] (test pdwv=1686) [place] [address] POCT-GLUCOSE [id number] 17:13:00 Test Item Value Reference Range Comments POC-GLUCOSE METER (BEAKER) 90 mg/dL 70-110 TESTED AT [address] (test ciua=5039) [place] [address] POCT-GLUCOSE [id number] 12:20:00 Test Item Value Reference Range Comments POC-GLUCOSE METER (BEAKER) 101 mg/dL 70-110 TESTED AT [address] (test rsey=0604) [place] [address] [id number] 06:21:00 Test Item Value Reference Range Comments PHOSPHORUS (BEAKER) (test piua=665) 2.5 mg/dL 2.3-4.7 [id number] 06:21:00 Test Item Value Reference Range Comments MAGNESIUM (BEAKER) (test mwzi=307) 1.8 mg/dL 1.6-2.6 BASIC METABOLIC [id number] 06:21:00 Test Item Value Reference Range Comments SODIUM (BEAKER) (test 139 meq/L 136-145 mtmt=047) POTASSIUM (BEAKER) (test 2.9 meq/L 3.5-5.1 xggx=851) CHLORIDE (BEAKER) (test 105 meq/L 98-107 qajj=037) CO2 (BEAKER) (test 22 meq/L 22-29 girf=961) BLOOD UREA NITROGEN 12 mg/dL 7-21 (BEAKER) (test mnpa=161) CREATININE (BEAKER) (test 0.72 mg/dL 0.57-1.25 srty=853) GLUCOSE RANDOM (BEAKER) 85 mg/dL 70-105 (test ayla=882) CALCIUM (BEAKER) (test 8.4 mg/dL 8.4-10.2 lpth=378) EGFR (BEAKER) (test 84 mL/min/1.73 sq m ESTIMATED GFR IS NOT oypq=1363) ACCURATE CREATININE CLEARANCE IN PREDICTING GLOMERULAR FILTRATION RATE. ESTIMATED GFR IS NOT APPLICABLE FOR DIALYSIS PATIENTS. CBC W/PLT COUNT & AUTO [id number] 06:05:00 Test Item Value Reference Range Comments WHITE BLOOD CELL COUNT (BEAKER) (test hmwx=672) 16.4 K/ L 3.5-10.5 RED BLOOD CELL COUNT (BEAKER) (test hatb=327) 3.88 M/ L 3.93-5.22 HEMOGLOBIN (BEAKER) (test oglm=891) 12.6 GM/DL 11.2-15.7 HEMATOCRIT (BEAKER) (test exnu=656) 37.5 % 34.1-44.9 MEAN CORPUSCULAR VOLUME (BEAKER) (test laee=851) 96.6 fL 79.4-94.8 MEAN CORPUSCULAR HEMOGLOBIN (BEAKER) (test 32.5 pg 25.6-32.2 syiv=454) MEAN CORPUSCULAR HEMOGLOBIN CONC (BEAKER) (test 33.6 GM/DL 32.2-35.5 maqt=417) RED CELL DISTRIBUTION WIDTH (BEAKER) (test 14.1 % 11.7-14.4 zjar=877) PLATELET COUNT (BEAKER) (test mgkt=622) 210 K/CU MM 150-450 MEAN PLATELET VOLUME (BEAKER) (test znac=741) 9.1 fL 9.4-12.3 NUCLEATED RED BLOOD CELLS (BEAKER) (test 0 /100 WBC 0-0 sqzc=401) NEUTROPHILS RELATIVE PERCENT (BEAKER) (test 82 % wlwf=859) LYMPHOCYTES RELATIVE PERCENT (BEAKER) (test 10 % pjmz=943) MONOCYTES RELATIVE PERCENT (BEAKER) (test 3 % ofuj=457) EOSINOPHILS RELATIVE PERCENT (BEAKER) (test 4 % yrmw=283) BASOPHILS RELATIVE PERCENT (BEAKER) (test 0 % dkqy=475) NEUTROPHILS ABSOLUTE COUNT (BEAKER) (test 13.48 K/ L 1.56-6.13 rmgd=656) LYMPHOCYTES ABSOLUTE COUNT (BEAKER) (test 1.56 K/ L 1.18-3.74 seye=746) MONOCYTES ABSOLUTE COUNT (BEAKER) (test 0.45 K/ L 0.24-0.36 rere=859) EOSINOPHILS ABSOLUTE COUNT (BEAKER) (test 0.69 K/ L 0.04-0.36 dghs=201) BASOPHILS ABSOLUTE COUNT (BEAKER) (test 0.03 K/ L 0.01-0.08 hgtw=672) IMMATURE GRANULOCYTES-RELATIVE PERCENT (BEAKER) 1 % 0-1 (test xula=0272) POCT-GLUCOSE [id number] 05:44:00 Test Item Value Reference Range Comments POC-GLUCOSE METER (BEAKER) 99 mg/dL 70-110 TESTED AT [address] (test xaev=0966) [place] [address] POCT-GLUCOSE [id number] 23:08:00 Test Item Value Reference Range Comments POC-GLUCOSE METER (BEAKER) 107 mg/dL 70-110 TESTED AT [address] (test cdrb=6632) [facility] [address] POCT-GLUCOSE [id number] 17:56:00 Test Item Value Reference Range Comments POC-GLUCOSE METER (BEAKER) 102 mg/dL 70-110 TESTED AT [address] (test bqmo=8626) [place] [address] POCT-GLUCOSE [id number] 13:00:00 Test Item Value Reference Range Comments POC-GLUCOSE METER (BEAKER) 119 mg/dL 70-110 TESTED AT [address] (test hpki=2390) [facility] [address] [id number] 08:26:00 Test Item Value Reference Range Comments PHOSPHORUS (BEAKER) (test tnqj=508) 2.0 mg/dL 2.3-4.7 [id number] 08:26:00 Test Item Value Reference Range Comments MAGNESIUM (BEAKER) (test shno=998) 2.2 mg/dL 1.6-2.6 BASIC METABOLIC [id number] 08:26:00 Test Item Value Reference Range Comments SODIUM (BEAKER) (test 141 meq/L 136-145 tdfe=521) POTASSIUM (BEAKER) (test 3.6 meq/L 3.5-5.1 lflp=179) CHLORIDE (BEAKER) (test 108 meq/L 98-107 dpbm=491) CO2 (BEAKER) (test 21 meq/L 22-29 cabv=430) BLOOD UREA NITROGEN 19 mg/dL 7-21 (BEAKER) (test hlzn=821) CREATININE (BEAKER) (test 0.87 mg/dL 0.57-1.25 bkfz=264) GLUCOSE RANDOM (BEAKER) 91 mg/dL 70-105 (test wsif=170) CALCIUM (BEAKER) (test 8.5 mg/dL 8.4-10.2 apqq=642) EGFR (BEAKER) (test 68 mL/min/1.73 sq m ESTIMATED GFR IS NOT asbv=2398) ACCURATE CREATININE CLEARANCE IN PREDICTING GLOMERULAR FILTRATION RATE. ESTIMATED GFR IS NOT APPLICABLE FOR DIALYSIS PATIENTS. CBC W/PLT COUNT & AUTO [id number] 08:18:00 Test Item Value Reference Range Comments WHITE BLOOD CELL COUNT (BEAKER) (test plbg=287) 15.8 K/ L 3.5-10.5 RED BLOOD CELL COUNT (BEAKER) (test kgli=410) 4.15 M/ L 3.93-5.22 HEMOGLOBIN (BEAKER) (test hnbo=762) 13.8 GM/DL 11.2-15.7 HEMATOCRIT (BEAKER) (test mija=205) 41.4 % 34.1-44.9 MEAN CORPUSCULAR VOLUME (BEAKER) (test hjhi=116) 99.8 fL 79.4-94.8 MEAN CORPUSCULAR HEMOGLOBIN (BEAKER) (test 33.3 pg 25.6-32.2 gzrd=666) MEAN CORPUSCULAR HEMOGLOBIN CONC (BEAKER) (test 33.3 GM/DL 32.2-35.5 vgoa=758) RED CELL DISTRIBUTION WIDTH (BEAKER) (test 14.7 % 11.7-14.4 gfxm=923) PLATELET COUNT (BEAKER) (test dgji=552) 210 K/CU MM 150-450 MEAN PLATELET VOLUME (BEAKER) (test bhdv=267) 9.6 fL 9.4-12.3 NUCLEATED RED BLOOD CELLS (BEAKER) (test 0 /100 WBC 0-0 uupq=414) NEUTROPHILS RELATIVE PERCENT (BEAKER) (test 86 % ksxy=057) LYMPHOCYTES RELATIVE PERCENT (BEAKER) (test 8 % sazu=168) MONOCYTES RELATIVE PERCENT (BEAKER) (test 3 % jrxw=655) EOSINOPHILS RELATIVE PERCENT (BEAKER) (test 2 % mgbh=535) BASOPHILS RELATIVE PERCENT (BEAKER) (test 0 % opxy=528) NEUTROPHILS ABSOLUTE COUNT (BEAKER) (test 13.65 K/ L 1.56-6.13 fzwk=144) LYMPHOCYTES ABSOLUTE COUNT (BEAKER) (test 1.22 K/ L 1.18-3.74 awdg=131) MONOCYTES ABSOLUTE COUNT (BEAKER) (test 0.51 K/ L 0.24-0.36 osof=967) EOSINOPHILS ABSOLUTE COUNT (BEAKER) (test 0.26 K/ L 0.04-0.36 xlvj=972) BASOPHILS ABSOLUTE COUNT (BEAKER) (test 0.03 K/ L 0.01-0.08 dgyq=963) IMMATURE GRANULOCYTES-RELATIVE PERCENT (BEAKER) 1 % 0-1 (test otao=9426) POCT-GLUCOSE [id number] 07:31:00 Test Item Value Reference Range Comments POC-GLUCOSE METER (BEAKER) 104 mg/dL 70-110 TESTED AT [address] (test jedx=4384) [facility] [address] POCT-GLUCOSE [id number] 00:39:00 Test Item Value Reference Range Comments POC-GLUCOSE METER (BEAKER) 91 mg/dL 70-110 TESTED AT [address] (test vnvm=7541) [facility] [address] POCT-GLUCOSE [id number] 17:36:00 Test Item Value Reference Range Comments POC-GLUCOSE METER (BEAKER) 81 mg/dL 70-110 TESTED AT [facility] [address] [facility] (test bhlk=9392) [facility] [address] POCT-GLUCOSE [id number] 11:26:00 Test Item Value Reference Range Comments POC-GLUCOSE METER (BEAKER) 105 mg/dL 70-110 TESTED AT [address] (test rrun=1692) [facility] [address] POCT-GLUCOSE [id number] 05:58:00 Test Item Value Reference Range Comments POC-GLUCOSE METER (BEAKER) 124 mg/dL 70-110 TESTED AT [address] (test wcdx=1356) [facility] [address] [id number] 03:33:00 Test Item Value Reference Range Comments PHOSPHORUS (BEAKER) (test wexg=147) 4.9 mg/dL 2.3-4.7 [id number] 03:33:00 Test Item Value Reference Range Comments MAGNESIUM (BEAKER) (test gbpz=106) 1.7 mg/dL 1.6-2.6 BASIC METABOLIC [id number] 03:33:00 Test Item Value Reference Range Comments SODIUM (BEAKER) (test 138 meq/L 136-145 fivu=410) POTASSIUM (BEAKER) (test 4.5 meq/L 3.5-5.1 gqmv=764) CHLORIDE (BEAKER) (test 110 meq/L 98-107 xdia=315) CO2 (BEAKER) (test 20 meq/L 22-29 mtjz=524) BLOOD UREA NITROGEN 29 mg/dL 7-21 (BEAKER) (test zzcm=713) CREATININE (BEAKER) (test 1.12 mg/dL 0.57-1.25 ytxi=034) GLUCOSE RANDOM (BEAKER) 124 mg/dL 70-105 (test nuyg=792) CALCIUM (BEAKER) (test 8.1 mg/dL 8.4-10.2 eogo=504) EGFR (BEAKER) (test 51 mL/min/1.73 sq m ESTIMATED GFR IS NOT xyhc=9280) ACCURATE CREATININE CLEARANCE IN PREDICTING GLOMERULAR FILTRATION RATE. ESTIMATED GFR IS NOT APPLICABLE FOR DIALYSIS PATIENTS. CBC W/PLT COUNT & AUTO [id number] 03:22:00 Test Item Value Reference Range Comments WHITE BLOOD CELL COUNT (BEAKER) (test dutt=983) 19.3 K/ L 3.5-10.5 RED BLOOD CELL COUNT (BEAKER) (test dijd=620) 3.62 M/ L 3.93-5.22 HEMOGLOBIN (BEAKER) (test hshi=979) 11.9 GM/DL 11.2-15.7 HEMATOCRIT (BEAKER) (test myug=716) 36.5 % 34.1-44.9 MEAN CORPUSCULAR VOLUME (BEAKER) (test hmww=260) 100.8 fL 79.4-94.8 MEAN CORPUSCULAR HEMOGLOBIN (BEAKER) (test 32.9 pg 25.6-32.2 nyje=876) MEAN CORPUSCULAR HEMOGLOBIN CONC (BEAKER) (test 32.6 GM/DL 32.2-35.5 yybj=342) RED CELL DISTRIBUTION WIDTH (BEAKER) (test 14.6 % 11.7-14.4 ltjc=801) PLATELET COUNT (BEAKER) (test jcfu=181) 218 K/CU MM 150-450 MEAN PLATELET VOLUME (BEAKER) (test drjg=576) 9.3 fL 9.4-12.3 NUCLEATED RED BLOOD CELLS (BEAKER) (test 0 /100 WBC 0-0 kqvi=510) NEUTROPHILS RELATIVE PERCENT (BEAKER) (test 94 % fisr=816) LYMPHOCYTES RELATIVE PERCENT (BEAKER) (test 3 % tnnk=923) MONOCYTES RELATIVE PERCENT (BEAKER) (test 3 % bkue=558) EOSINOPHILS RELATIVE PERCENT (BEAKER) (test 0 % mjer=678) BASOPHILS RELATIVE PERCENT (BEAKER) (test 0 % pcqe=505) NEUTROPHILS ABSOLUTE COUNT (BEAKER) (test 18.11 K/ L 1.56-6.13 zedr=105) LYMPHOCYTES ABSOLUTE COUNT (BEAKER) (test 0.55 K/ L 1.18-3.74 zddf=631) MONOCYTES ABSOLUTE COUNT (BEAKER) (test 0.53 K/ L 0.24-0.36 ejqv=326) EOSINOPHILS ABSOLUTE COUNT (BEAKER) (test 0.00 K/ L 0.04-0.36 hjsx=000) BASOPHILS ABSOLUTE COUNT (BEAKER) (test 0.03 K/ L 0.01-0.08 lnbs=180) IMMATURE GRANULOCYTES-RELATIVE PERCENT (BEAKER) 0 % 0-1 (test tkyf=3389) (MANUAL DIFFERENTIAL)2017-03-17 22:54:00 Test Item Value Reference Range Comments NEUTROPHILS - REL (DIFF) (BEAKER) (test 76 % ojlo=8423) LYMPHOCYTES - REL (DIFF) (BEAKER) (test 4 % cvjf=2274) MONOCYTES - REL (DIFF) (BEAKER) (test pwms=8518) 2 % EOSINOPHILS - REL (DIFF) (BEAKER) (test 1 % ofjc=3240) BANDS - REL (DIFF) (BEAKER) (test zffn=9932) 17 % 0-10 NEUTROPHILS - ABS (DIFF) (BEAKER) (test 12.01 K/ L 1.80-8.00 auxu=2030) LYMPHOCYTES - ABS (DIFF) (BEAKER) (test 0.63 K/ L 1.48-4.50 ycfj=8287) MONOCYTES - ABS (DIFF) (BEAKER) (test cjkr=4900) 0.32 K/ L 0.00-1.30 EOSINOPHILS - ABS (DIFF) (BEAKER) (test 0.16 K/ L 0.00-0.50 cetx=1863) BANDS-ABS (DIFF) (BEAKER) (test ocii=5041) 2.7 K/ L 0.0-0.8 TOTAL COUNTED (BEAKER) (test oeyb=3422) 100 BANDS + SEGMENTED NEUTROPHILS (BEAKER) (test 14.69 apbf=1337) WBC MORPHOLOGY (BEAKER) (test vdai=729) Normal PLT MORPHOLOGY (BEAKER) (test eltx=545) Normal RBC MORPHOLOGY (BEAKER) (test vklr=705) Normal CBC W/PLT COUNT & AUTO [id number] 22:53:00 Test Item Value Reference Range Comments WHITE BLOOD CELL COUNT (BEAKER) (test kvkf=577) 15.8 K/ L 3.5-10.5 RED BLOOD CELL COUNT (BEAKER) (test xgof=342) 3.54 M/ L 3.93-5.22 HEMOGLOBIN (BEAKER) (test fvcf=978) 11.8 GM/DL 11.2-15.7 HEMATOCRIT (BEAKER) (test pxde=444) 36.0 % 34.1-44.9 MEAN CORPUSCULAR VOLUME (BEAKER) (test kgws=772) 101.7 fL 79.4-94.8 MEAN CORPUSCULAR HEMOGLOBIN (BEAKER) (test 33.3 pg 25.6-32.2 aata=436) MEAN CORPUSCULAR HEMOGLOBIN CONC (BEAKER) (test 32.8 GM/DL 32.2-35.5 nift=608) RED CELL DISTRIBUTION WIDTH (BEAKER) (test 14.6 % 11.7-14.4 pdsq=309) PLATELET COUNT (BEAKER) (test yeee=839) 192 K/CU MM 150-450 MEAN PLATELET VOLUME (BEAKER) (test blay=512) 9.4 fL 9.4-12.3 NUCLEATED RED BLOOD CELLS (BEAKER) (test 0 /100 WBC 0-0 jrnz=764) NEUTROPHILS RELATIVE PERCENT (BEAKER) (test 91 % qdcl=501) LYMPHOCYTES RELATIVE PERCENT (BEAKER) (test 6 % snzk=774) MONOCYTES RELATIVE PERCENT (BEAKER) (test 3 % dwbw=094) EOSINOPHILS RELATIVE PERCENT (BEAKER) (test 0 % azwa=511) BASOPHILS RELATIVE PERCENT (BEAKER) (test 0 % tbqc=039) NEUTROPHILS ABSOLUTE COUNT (BEAKER) (test 14.33 K/ L 1.56-6.13 woed=899) LYMPHOCYTES ABSOLUTE COUNT (BEAKER) (test 0.87 K/ L 1.18-3.74 esdw=158) MONOCYTES ABSOLUTE COUNT (BEAKER) (test 0.51 K/ L 0.24-0.36 szvn=628) EOSINOPHILS ABSOLUTE COUNT (BEAKER) (test 0.04 K/ L 0.04-0.36 hwaf=403) BASOPHILS ABSOLUTE COUNT (BEAKER) (test 0.02 K/ L 0.01-0.08 cegj=909) IMMATURE GRANULOCYTES-RELATIVE PERCENT (BEAKER) 0 % 0-1 (test bdyt=9918) COMPREHENSIVE METABOLIC [id number] 22:37:00 Test Item Value Reference Range Comments TOTAL PROTEIN (BEAKER) 5.3 gm/dL 6.0-8.3 (test fowc=320) ALBUMIN (BEAKER) (test 2.9 g/dL 3.5-5.0 jrdy=2818) ALKALINE PHOSPHATASE 60 U/L 40-150 (BEAKER) (test pved=669) BILIRUBIN TOTAL (BEAKER) 0.8 mg/dL 0.2-1.2 (test bvwr=753) SODIUM (BEAKER) (test 137 meq/L 136-145 giss=128) POTASSIUM (BEAKER) (test 3.9 meq/L 3.5-5.1 bbjq=864) CHLORIDE (BEAKER) (test 109 meq/L 98-107 yhbq=363) CO2 (BEAKER) (test 20 meq/L 22-29 ryyi=653) BLOOD UREA NITROGEN 34 mg/dL 7-21 (BEAKER) (test cbvx=737) CREATININE (BEAKER) (test 1.27 mg/dL 0.57-1.25 uihh=967) GLUCOSE RANDOM (BEAKER) 115 mg/dL 70-105 (test ddds=065) CALCIUM (BEAKER) (test 7.9 mg/dL 8.4-10.2 tyvz=370) AST (SGOT) (BEAKER) (test 51 U/L 5-34 isvc=390) ALT (SGPT) (BEAKER) (test 37 U/L 6-55 yrrj=963) EGFR (BEAKER) (test 44 mL/min/1.73 sq m ESTIMATED GFR IS NOT smbq=8907) ACCURATE CREATININE CLEARANCE IN PREDICTING GLOMERULAR FILTRATION RATE. ESTIMATED GFR IS NOT APPLICABLE FOR DIALYSIS PATIENTS. [id number] 22:36:00 Test Item Value Reference Range Comments PHOSPHORUS (BEAKER) (test amax=641) 4.4 mg/dL 2.3-4.7 [id number] 22:36:00 Test Item Value Reference Range Comments MAGNESIUM (BEAKER) (test mjzt=569) 1.3 mg/dL 1.6-2.6 BLOOD GAS, [id number] 22:31:00 Test Item Value Reference Range Comments PH ARTERIAL (BEAKER) (test dcqj=774) 7.29 7.35-7.45 PCO2 ARTERIAL (BEAKER) (test ktpo=637) 33 mmHg 35-45 PO2 ARTERIAL (BEAKER) (test anpu=575) 76 mmHg 80-90 O2 SATURATION ARTERIAL (BEAKER) (test nmkx=305) 94.5 % 96.0-97.0 HCO3 ARTERIAL (BEAKER) (test rkjq=602) 16 mmol/L 21-29 BASE EXCESS ARTERIAL (BEAKER) (test cpfa=439) -10.1 mmol/L -2.0-3.0 PATIENT TEMPERATURE (BEAKER) (test pqla=3778) 36.4 C FIO2 (BEAKER) (test bmwb=0762) 28.0 % RAD, ABDOMEN/KUB, 1 VIEW [id number] 22:20:00Reason for exam:->ngt placementFINAL REPORT RAD, ABDOMEN/KUB, 1 VIEW AP CLINICAL INDICATION: "ngt placement" COMPARISON: None TECHNIQUE: Single, frontal radiograph of the abdomen. IMPRESSION: Enteric tube terminates in the expected portion of the gastric body.Nonspecific nonobstructive bowel gas pattern.No pneumatosis or obvious pneumoperitoneum.No acute osseous abnormality. Signed: Tony Celaya MDReport Verified Date/Time: 03/17/2017 22 :20:51 Reading Location: [facility] [id number] Ortho Consult Reading Room (MANUAL DIFFERENTIAL)2017-03-17 17:58:00 Test Item Value Reference Range Comments NEUTROPHILS - REL (DIFF) (BEAKER) (test 72 % nwvv=6796) LYMPHOCYTES - REL (DIFF) (BEAKER) (test 10 % hnva=6064) MONOCYTES - REL (DIFF) (BEAKER) (test dqks=8513) 4 % BANDS - REL (DIFF) (BEAKER) (test vkbq=0338) 14 % 0-10 NEUTROPHILS - ABS (DIFF) (BEAKER) (test 11.38 K/ L 1.80-8.00 mzbk=0214) LYMPHOCYTES - ABS (DIFF) (BEAKER) (test 1.58 K/ L 1.48-4.50 ptte=1743) MONOCYTES - ABS (DIFF) (BEAKER) (test ayyb=2469) 0.63 K/ L 0.00-1.30 BANDS-ABS (DIFF) (BEAKER) (test syne=9681) 2.2 K/ L 0.0-0.8 TOTAL COUNTED (BEAKER) (test zlix=7180) 100 BANDS + SEGMENTED NEUTROPHILS (BEAKER) (test 13.59 bmaq=6641) WBC MORPHOLOGY (BEAKER) (test cuec=870) Normal PLT MORPHOLOGY (BEAKER) (test pzzi=125) Normal RBC MORPHOLOGY (BEAKER) (test tlaf=874) Normal CBC W/PLT COUNT & AUTO [id number] 17:57:00 Test Item Value Reference Range Comments WHITE BLOOD CELL COUNT (BEAKER) (test duuw=601) 15.8 K/ L 3.5-10.5 RED BLOOD CELL COUNT (BEAKER) (test lknv=174) 3.93 M/ L 3.93-5.22 HEMOGLOBIN (BEAKER) (test bfuv=251) 13.1 GM/DL 11.2-15.7 HEMATOCRIT (BEAKER) (test gxaw=620) 39.5 % 34.1-44.9 MEAN CORPUSCULAR VOLUME (BEAKER) (test jpsd=618) 100.5 fL 79.4-94.8 MEAN CORPUSCULAR HEMOGLOBIN (BEAKER) (test 33.3 pg 25.6-32.2 lsca=489) MEAN CORPUSCULAR HEMOGLOBIN CONC (BEAKER) (test 33.2 GM/DL 32.2-35.5 ltic=630) RED CELL DISTRIBUTION WIDTH (BEAKER) (test 14.6 % 11.7-14.4 hnaw=714) PLATELET COUNT (BEAKER) (test jmht=397) 234 K/CU MM 150-450 MEAN PLATELET VOLUME (BEAKER) (test vbtd=855) 9.5 fL 9.4-12.3 NUCLEATED RED BLOOD CELLS (BEAKER) (test 0 /100 WBC 0-0 fpsz=842) NEUTROPHILS RELATIVE PERCENT (BEAKER) (test 87 % mrom=674) LYMPHOCYTES RELATIVE PERCENT (BEAKER) (test 7 % benb=743) MONOCYTES RELATIVE PERCENT (BEAKER) (test 5 % azxr=438) EOSINOPHILS RELATIVE PERCENT (BEAKER) (test 0 % eell=184) BASOPHILS RELATIVE PERCENT (BEAKER) (test 0 % qidd=330) NEUTROPHILS ABSOLUTE COUNT (BEAKER) (test 13.84 K/ L 1.56-6.13 suxj=952) LYMPHOCYTES ABSOLUTE COUNT (BEAKER) (test 1.16 K/ L 1.18-3.74 jaon=809) MONOCYTES ABSOLUTE COUNT (BEAKER) (test 0.72 K/ L 0.24-0.36 kgsh=307) EOSINOPHILS ABSOLUTE COUNT (BEAKER) (test 0.04 K/ L 0.04-0.36 wale=204) BASOPHILS ABSOLUTE COUNT (BEAKER) (test 0.03 K/ L 0.01-0.08 yalp=308) IMMATURE GRANULOCYTES-RELATIVE PERCENT (BEAKER) 0 % 0-1 (test sbbs=0219) [id number] 17:14:00 Test Item Value Reference Range Comments PARTIAL THROMBOPLASTIN TIME (BEAKER) (test 21.4 seconds 22.5-36.0 phof=857) CREATINE KINASE (CK), TOTAL AND [id number] 17:10:00 Test Item Value Reference Range Comments CREATINE KINASE TOTAL (BEAKER) (test tvzu=972) 39 U/L 29-200 CREATINE KINASE-MB (BEAKER) (test zued=578) 1.2 ng/mL 0.0-6.6 CREATINE KINASE-MB INDEX (BEAKER) (test kohf=425) 3.1 % CK-MB Reference Range:<6.7 Normal6.7-10.0 Borderline>10.0 AbnormalTROPONIN [id number] 17:10:00 Test Item Value Reference Range Comments TROPONIN I (BEAKER) (test bwjm=990) < ng/mL 0.00-0.03 Troponin I (TnI) levels [...] failure, acidosis, acute neurological disease, and persistent tachyarrhythmia.[id number] 17:09:00 Test Item Value Reference Range Comments MAGNESIUM (BEAKER) (test 1.9 mg/dL 1.6-2.6 Specimen slightly hemolyzed dayn=096) [id number] 17:09:00 Test Item Value Reference Range Comments PHOSPHORUS (BEAKER) (test 4.1 mg/dL 2.3-4.7 Specimen slightly hemolyzed bktt=760) BASIC METABOLIC [id number] 17:09:00 Test Item Value Reference Range Comments SODIUM (BEAKER) (test 137 meq/L 136-145 rddc=887) POTASSIUM (BEAKER) (test 4.2 meq/L 3.5-5.1 Specimen slightly tkab=204) hemolyzed CHLORIDE (BEAKER) (test 109 meq/L 98-107 ihzt=496) CO2 (BEAKER) (test 19 meq/L 22-29 mwtn=708) BLOOD UREA NITROGEN 37 mg/dL 7-21 (BEAKER) (test jrau=572) CREATININE (BEAKER) (test 1.33 mg/dL 0.57-1.25 Specimen slightly lzbg=024) hemolyzed GLUCOSE RANDOM (BEAKER) 105 mg/dL 70-105 (test kseb=308) CALCIUM (BEAKER) (test 8.6 mg/dL 8.4-10.2 feda=031) EGFR (BEAKER) (test 41 mL/min/1.73 sq m ESTIMATED GFR IS NOT kpns=4237) ACCURATE CREATININE CLEARANCE IN PREDICTING GLOMERULAR FILTRATION RATE. ESTIMATED GFR IS NOT APPLICABLE FOR DIALYSIS PATIENTS. HEPATIC FUNCTION [id number] 17:09:00 Test Item Value Reference Range Comments TOTAL PROTEIN (BEAKER) (test 6.5 gm/dL 6.0-8.3 Specimen slightly hemolyzed ozgi=535) ALBUMIN (BEAKER) (test 3.4 g/dL 3.5-5.0 Specimen slightly hemolyzed swlt=6262) BILIRUBIN TOTAL (BEAKER) (test 0.8 mg/dL 0.2-1.2 Specimen slightly hemolyzed swmw=674) BILIRUBIN DIRECT (BEAKER) (test 0.3 mg/dL 0.1-0.5 Specimen slightly hemolyzed dwet=640) ALKALINE PHOSPHATASE (BEAKER) 73 U/L 40-150 (test spvu=242) AST (SGOT) (BEAKER) (test 16 U/L 5-34 Specimen slightly hemolyzed qfmj=256) ALT (SGPT) (BEAKER) (test 14 U/L 6-55 Specimen slightly hemolyzed hlup=186) PROTHROMBIN [id number] 16:48:00 Test Item Value Reference Range Comments PROTIME (BEAKER) (test jvsa=709) 13.9 seconds 11.7-14.7 INR (BEAKER) (test gykr=760) 1.1 <=5.9 RECOMMENDED COUMADIN/WARFARIN INR THERAPY RANGESSTANDARD DOSE: 2.0 - 3.0 Includes: PROPHYLAXIS forvenous thrombosis, systemic embolization; TREATMENT for venous thrombosis and/or pulmonary embolus.HIGH RISK: Target INR is 2.5-3.5 for patients with mechanical heart valves.PROTHROMBIN [id number] 16:47: 00 Test Item Value Reference Range Comments PROTIME (BEAKER) (test rrpd=033) 13.9 seconds 11.7-14.7 INR (BEAKER) (test srym=235) 1.1 <=5.9 RECOMMENDED COUMADIN/WARFARIN INR THERAPY RANGESSTANDARD DOSE: 2.0 - 3.0 Includes: PROPHYLAXIS forvenous thrombosis, systemic embolization; TREATMENT for venous thrombosis and/or pulmonary embolus.HIGH RISK: Target INR is 2.5-3.5 for patients with mechanical heart valves.
[2018-08-21] MEDS ORDERED: MULTIVITAMINS 10 ML VIAL (INJ) IV ONE ×2 (22:35→22:40)
[2018-08-21] MEDS ORDERED: NA CHLORIDE 0.9% 1,000 ML ONE (22:35)
[2018-08-21] MEDS ORDERED: THIAMINE 200 MG/2 ML INJ ONE (22:35)
[2018-08-21] MEDS ORDERED: FOLIC ACID 5 MG/ML VIAL ONE (22:37)
[2018-08-21 23:47] LABS: Absolute Lymphocytes (CBC) 2.3 K/uL (0.7-4.9); Absolute Monocytes 0.8 K/uL (0.1-1.3); Absolute Neutrophil 7.6 K/uL (1.8-8.0); Basophils % 0.5 % (0-1.3); Eosinophils % 3.5 % (0-4.4); Hematocrit 41.7 % (36.0-45.0); Lymphocytes % 20.6 % (15.3-44.8); MPV 8.1 fL (7.6-11.3); Monocytes % 7.3 % (3.3-12.3); RBC Red Blood Cell Count 4.52 M/uL (3.86-4.86)
[2018-08-21 23:51] LABS: Protime INR 1.02
[2018-08-22 00:10] LABS: ALT/SGPT 21 U/L (12-78); AST/SGOT 24 U/L (15-37); Albumin 3.7 g/dL (3.4-5.0); Alkaline Phosphatase 93 U/L (45-117); BUN Blood Urea Nitrogen 9 mg/dL (7-18); Bicarbonate 22 mmol/L (21-32); Bilirubin Direct 0.1 mg/dL (0-0.2); Bilirubin Total 0.5 mg/dL (0.2-1.0); Glucose Level 88 mg/dL (74-106); Potassium 3.6 mmol/L (3.5-5.1); Protein, Total 7.5 g/dL (6.4-8.2); Sodium Level 144 mmol/L (136-145)
[2018-08-22 01:52] LABS: Barbiturates NEGATIVE (NEGATIVE); Benzodiazepines POSITIVE (NEGATIVE); Cocaine POSITIVE (NEGATIVE); METHAMPHETAM NEGATIVE (NEGATIVE); Methadone NEGATIVE (NEGATIVE); Opiates NEGATIVE (NEGATIVE); Phencyclidine NEGATIVE (NEGATIVE); THC Cannibis NEGATIVE (NEGATIVE)
[2018-08-22 03:48] LABS: Urine Blood 1+ (NEG); Urine Glucose NEGATIVE (NEG); Urine Protein NEGATIVE (NEG); Urine Specific Gravity <1.005 (1.005-1.030); Urine pH 5.5 (5.0-7.0)
--- NOTE | 2018-08-22 04:51 | ER ---
Nurse's Notes [facility] Name: Norma Boggs Age: 57 yrs Sex: Female : 1960 Arrival Date: 08/21/2018 Time: 21:48 Bed 14 Private MD: Diagnosis: Altered mental status. Substance abuse. Ingestion of alcohol. S/P Fall Presentation: 08/21 21:34 Presenting complaint: Patient states: that she fell out of bed x 2 and now has a large fc knot to the left side of her head. Negative LOC. Positive ETOH. Had right shoulder rotator cuff repair 1 week ago. Care prior to arrival: Glucose check: 94. Mechanism of Injury: Fall out of bed. Trauma event details: Injury occurred in the [facility], Injury occurred: at home. Injury occurred: August 21, 2018. 21:34 Acuity: ABDULLAHI 2 21:34 Method Of Arrival: EMS: [facility] 21:34 Transition of care: patient was not received from another setting of care. Onset of fc symptoms was August 21, 2018. Risk Assessment: Do you want to hurt yourself or someone else? Patient reports no desire to harm self or others. Initial Sepsis Screen: Does the patient meet any 2 criteria? No. Patient's initial sepsis screen is negative. Does the patient have a suspected source of infection? No. Patient's initial sepsis screen is negative. Trauma Activation: Alert Physician: ED Physician; Name: Dev; Notified At: 21:33; Arrived At: 21:34 Physician: General Surgeon; Name: ; Notified At: 21:33; Arrived At: Physician: Radiology; Name: Amor Thomas victoria; Notified At: 21:33; Arrived At: 21:33 Physician: Respiratory; Name: ; Notified At: 21:33; Arrived At: Physician: Lab; Name: ; Notified At: 21:33; Arrived At: Historical: - Allergies: 21:59 No Known Allergies; fc - Home Meds: 21:59 amlodipine 5 mg tab [Active]; gabapentin Oral [Active]; lisinopril Oral [Active]; fc Lyrica Oral [Active]; Protonix Oral [Active]; Xanax 1 mg Oral tab 1 tab [Active]; - PMHx: 21:59 BOWEL PERFORATION; carpal tunnel; Diverticulitis; Hypertension; Thyroid problem; Back fc pain; Depression; GI Bleed; - PSHx: 21:59 right rotator cuff repair; fc - Immunization history: Last tetanus immunization: - up to date. - Social history:: Smoking status: Patient uses tobacco products, denies chronic smoking, but will smoke occasionally, Patient uses alcohol, occasionally. - Ebola Screening: : Patient negative for fever greater than or equal to 101.5 degrees Fahrenheit, and additional compatible Ebola Virus Disease symptoms Patient denies exposure to infectious person Patient denies travel to an Ebola-affected area in the 21 days before illness onset. Screenin:34 Abuse screen: Denies threats or abuse. Tuberculosis screening: No symptoms or risk fc factors identified. 21:40 Nutritional screening: No deficits noted. Fall Risk Fall in past 12 months (25 points). ca1 IV access (20 points). Assessment: 21:50 General: Appears in no apparent distress. uncomfortable, Behavior is drowsy, Smells of ca1 alcohol. Pain: Complains of pain in anterior aspect of right shoulder and posterior aspect of right shoulder Pain currently is 6 out of 10 on a pain scale. Neuro: Level of Consciousness is awake, obeys commands, Oriented to person, place. Cardiovascular: Heart tones S1 S2 present Capillary refill < 3 seconds Patient's skin is warm and dry. Respiratory: Airway is patent Respiratory effort is even, unlabored, Respiratory pattern is regular, symmetrical, Breath sounds are clear bilaterally. GI: Abdomen is flat, non-distended, Bowel sounds present X 4 quads. Abd is soft and non tender X 4 quads. : No deficits noted. No signs and/or symptoms were reported regarding the genitourinary system. EENT: No deficits noted. No signs and/or symptoms were reported regarding the EENT system. Derm: Skin is intact, is healthy with good turgor, Skin is pink, warm \T\ dry. Musculoskeletal: Circulation, motion, and sensation intact. Capillary refill < 3 seconds. 23:03 Reassessment: Patient appears in no apparent distress at this time. Eyes closed, easily ca1 awaken to verbal stimuli. Equal and unlabored breathing, skin warm, dry, pink. 08/22 00:05 Reassessment: Patient appears in no apparent distress at this time. Patient is alert, ca1 oriented x 3, equal unlabored respirations, skin warm/dry/pink. 00:45 Reassessment: Patient appears in no apparent distress at this time. Eyes closed, easily ca1 awaken to verbal stimuli. Equal and unlabored breathing, skin warm, dry, pink. 03:10 Reassessment: Patient appears in no apparent distress at this time. Patient is alert, rr5 oriented x 3, equal unlabored respirations, skin warm/dry/pink. awaiting for rock climbing team member to drive her home. no complaints made. calm, cooperative able to walk on steady gait observed. Patient states symptoms have improved. 04:55 Reassessment: Patient appears in no apparent distress at this time. Patient is alert, rr5 oriented x 3, equal unlabored respirations, skin warm/dry/pink. discharge instruction given and explained without complaints made. vitally stable. assisted to the car of her friend. Patient states feeling better. Patient states symptoms have improved. Vital Signs: 08/21 21:34 BP 153 / 96; Pulse 56; Resp 18; Temp 98.2(O); Pulse Ox 98% on R/A; Weight 70.31 kg (R); fc Height 5 ft. 7 in. (170.18 cm) (R); Pain 7/10; 22:30 BP 126 / 98; Pulse 62; Resp 17 S; Pulse Ox 98% on R/A; ca1 23:03 BP 162 / 109; Pulse 70; Resp 18 S; Pulse Ox 99% on R/A; ca1 08/22 00:05 BP 106 / 68; Pulse 72; Resp 18 S; Pulse Ox 100% on R/A; ca1 00:45 BP 149 / 99; Pulse 70; Resp 19 S; Pulse Ox 100% on R/A; ca1 03:11 BP 140 / 85; Pulse 75; Resp 17; Pulse Ox 99% on R/A; rr5 04:30 BP 131 / 70; Pulse 69; Resp 18; Pulse Ox 98% ; rr5 08/21 21:34 Body Mass Index 24.28 (70.31 kg, 170.18 cm) fc Eugenia Coma Score: 08/21 21:34 Eye Response: spontaneous(4). Verbal Response: oriented(5). Motor Response: obeys fc commands(6). Total: 15. Trauma Score (Adult): 21:34 Eye Response: spontaneous(1); Verbal Response: oriented(1); Motor Response: obeys fc commands(2); Systolic BP: > 89 mm Hg(4); Respiratory Rate: 10 to 29 per min(4); [place] Score: 15; Trauma Score: 12 ED Course: 21:34 Patient has correct armband on for positive identification. Bed in low position. Call fc light in reach. Side rails up X2. 21:34 Arm band placed on Patient placed in an exam room, on a stretcher. fc 21:34 Patient maintains SpO2 saturation greater than 95% on room air. fc 21:38 Thermoregulation: warm blanket given to patient. fc 21:40 threat monitoring analyst on. Pulse ox on. NIBP on. ca1 21:48 Patient arrived in ED. fc 21:54 Triage completed. fc 21:54 Lamberto Méndez MD is Attending Physician. pkl 22:01 Sandra Zhu, RN is Primary Nurse. ca1 22:20 No provider procedures requiring assistance completed. Inserted saline lock: 20 gauge ca1 in left antecubital area, using aseptic technique. Blood collected. 22:46 XRAY CXR (1 view) In Process Unspecified. EDMS 22:47 Shoulder Right (2 View) XRAY In Process Unspecified. EDMS 22:58 CT Head C Spine In Process Unspecified. EDMS 08/22 00:04 Straight cath inserted, using sterile technique, 16 Fr. Specimen obtained. by Eloisa Ziegler, warehouse assistant Returned clear yellow urine. Patient tolerated. 03:00 IV discontinued, intact, bleeding controlled, No redness/swelling at site. Pressure rr5 dressing applied, removed by roman. Administered Medications: 08/21 22:30 Drug: Banana Bag - (NS 0.9% 1000 ml, foLIC Acid 1 mg, Thiamine 100 mg, Multivitamin 1 ca1 amp) Route: IV; Rate: calculated rate; Site: left antecubital; 08/22 03:00 Follow up: Response: No adverse reaction; IV Status: Completed infusion; IV Intake: rr5 1000ml ; by roman PIERRE Intake: 03:00 IV: 1000ml; Total: 1000ml. rr5 Outcome: 04:50 Discharge ordered by . pkl 04:52 Discharged to home ambulatory, with friend. rr5 04:52 Condition: stable 04:52 Discharge instructions given to patient, Instructed on discharge instructions, follow up and referral plans. Demonstrated understanding of instructions, follow-up care. 05:00 Patient left the ED. rr5 Signatures: Dispatcher [employer] Lamberto Fong MD MD pkl Chretien, Felicia RN RN fc Zoran Quesada RN RN rr5 Sandra Zhu RN RN ca1 Corrections: (The following items were deleted from the chart) 00:46 08/21 23:03 Reassessment: Patient appears in no apparent distress at this time. Eyes ca1 closed, easily awaken to verbal stimuli. Equal and unlabored breathing ca1 08/22 04:56 04:54 IV discontinued, intact, bleeding controlled, No redness/swelling at site. rr5 Pressure dressing applied, rr5
--- NOTE | 2018-08-22 04:51 | EDPHYS ---
Physician Documentation [facility] Name: Norma Boggs Age: 57 yrs Sex: Female : 1960 Arrival Date: 08/21/2018 Time: 21:48 Bed 14 Private MD: ED Physician Lamberto Méndez HPI: 08/22 01:12 This 57 yrs old Female presents to ER via EMS with complaints of Fall Injury. pkl 01:12 Details of fall: The patient fell from a supine position, out of bed. Onset: The pkl symptoms/episode began/occurred just prior to arrival. Associated injuries: The patient sustained injury to the head, neck injury, contusion. Historical: - Allergies: 08/21 21:59 No Known Allergies; fc - Home Meds: 21:59 amlodipine 5 mg tab [Active]; gabapentin Oral [Active]; lisinopril Oral [Active]; fc Lyrica Oral [Active]; Protonix Oral [Active]; Xanax 1 mg Oral tab 1 tab [Active]; - PMHx: 21:59 BOWEL PERFORATION; carpal tunnel; Diverticulitis; Hypertension; Thyroid problem; Back fc pain; Depression; GI Bleed; - PSHx: 21:59 right rotator cuff repair; fc - Immunization history: Last tetanus immunization: - up to date. - Social history:: Smoking status: Patient uses tobacco products, denies chronic smoking, but will smoke occasionally, Patient uses alcohol, occasionally. - Ebola Screening: : Patient negative for fever greater than or equal to 101.5 degrees Fahrenheit, and additional compatible Ebola Virus Disease symptoms Patient denies exposure to infectious person Patient denies travel to an Ebola-affected area in the 21 days before illness onset. ROS: 08/22 01:12 Eyes: Negative for injury, pain, redness, and discharge, ENT: Negative for injury, pkl pain, and discharge, Neck: Negative for injury, pain, and swelling, Cardiovascular: Negative for chest pain, palpitations, and edema, Respiratory: Negative for shortness of breath, cough, wheezing, and pleuritic chest pain, Abdomen/GI: Negative for abdominal pain, nausea, vomiting, diarrhea, and constipation, Back: Negative for injury and pain, : Negative for injury, bleeding, discharge, and swelling, MS/Extremity: Negative for injury and deformity, Skin: Negative for injury, rash, and discoloration. Neuro: Positive for altered mental status. Exam: 01:12 Head/Face: Normocephalic, atraumatic. Eyes: Pupils equal round and reactive to light, pkl extra-ocular motions intact. Lids and lashes normal. Conjunctiva and sclera are non-icteric and not injected. Cornea within normal limits. Periorbital areas with no swelling, redness, or edema. ENT: Nares patent. No nasal discharge, no septal abnormalities noted. Tympanic membranes are normal and external auditory canals are clear. Oropharynx with no redness, swelling, or masses, exudates, or evidence of obstruction, uvula midline. Mucous membranes moist. Neck: Trachea midline, no thyromegaly or masses palpated, and no cervical lymphadenopathy. Supple, full range of motion without nuchal rigidity, or vertebral point tenderness. No Meningismus. Chest/axilla: Normal chest wall appearance and motion. Nontender with no deformity. No lesions are appreciated. Cardiovascular: Regular rate and rhythm with a normal S1 and S2. No gallops, murmurs, or rubs. Normal PMI, no JVD. No pulse deficits. Respiratory: Lungs have equal breath sounds bilaterally, clear to auscultation and percussion. No rales, rhonchi or wheezes noted. No increased work of breathing, no retractions or nasal flaring. Abdomen/GI: Soft, non-tender, with normal bowel sounds. No distension or tympany. No guarding or rebound. No evidence of tenderness throughout. Back: No spinal tenderness. No costovertebral tenderness. Full range of motion. Skin: Warm, dry with normal turgor. Normal color with no rashes, no lesions, and no evidence of cellulitis. MS/ Extremity: Pulses equal, no cyanosis. Neurovascular intact. Full, normal range of motion. 01:12 Neuro: Orientation: appropriate for stated age, Mentation: responsive to voice slow to respond, Cranial nerves: grossly normal, Motor: moves all fours. Vital Signs: 08/21 21:34 BP 153 / 96; Pulse 56; Resp 18; Temp 98.2(O); Pulse Ox 98% on R/A; Weight 70.31 kg (R); fc Height 5 ft. 7 in. (170.18 cm) (R); Pain 7/10; 22:30 BP 126 / 98; Pulse 62; Resp 17 S; Pulse Ox 98% on R/A; ca1 23:03 BP 162 / 109; Pulse 70; Resp 18 S; Pulse Ox 99% on R/A; ca1 04/16 00:05 BP 106 / 68; Pulse 72; Resp 18 S; Pulse Ox 100% on R/A; ca1 00:45 BP 149 / 99; Pulse 70; Resp 19 S; Pulse Ox 100% on R/A; ca1 03:11 BP 140 / 85; Pulse 75; Resp 17; Pulse Ox 99% on R/A; rr5 04:30 BP 131 / 70; Pulse 69; Resp 18; Pulse Ox 98% ; rr5 08/21 21:34 Body Mass Index 24.28 (70.31 kg, 170.18 cm) fc [place] Coma Score: 08/21 21:34 Eye Response: spontaneous(4). Verbal Response: oriented(5). Motor Response: obeys fc commands(6). Total: 15. Trauma Score (Adult): 21:34 Eye Response: spontaneous(1); Verbal Response: oriented(1); Motor Response: obeys fc commands(2); Systolic BP: > 89 mm Hg(4); Respiratory Rate: 10 to 29 per min(4); Eugenia Score: 15; Trauma Score: 12 MDM: 21:54 Patient medically screened. pkl 08/22 04:44 ED course: Patient alert. UDS ( Positive for Benzo and Cocaine )' ETOH 73. pkl 04:51 Data reviewed: vital signs, nurses notes, lab test result(s), EKG, radiologic studies, pkl CT scan. 08/21 22:01 Order name: Acetaminophen; Complete Time: 01:09 pkl 08/21 22:01 Order name: Basic Metabolic Panel; Complete Time: 01:09 pkl 08/21 22:01 Order name: CBC with Diff; Complete Time: 01:09 pkl 08/21 22:01 Order name: ETOH Level; Complete Time: 01:09 pkl 08/21 22:01 Order name: Hepatic Function; Complete Time: 01:09 pkl 08/21 22:01 Order name: PT-INR; Complete Time: 01:09 pkl 08/21 22:01 Order name: Ptt, Activated; Complete Time: 01:09 pkl 08/21 22:01 Order name: Salicylate; Complete Time: 01:09 pkl 08/21 22:01 Order name: Urine Drug Screen; Complete Time: 04:23 pkl 08/21 22:03 Order name: CT Head C Spine pkl 08/21 22:03 Order name: XRAY CXR (1 view) pkl 08/21 22:03 Order name: Shoulder Right (2 View) XRAY pkl 08/22 00:28 Order name: Urine Dipstick--Ancillary (enter results); Complete Time: 04:23 ms 08/21 22:01 Order name: EKG; Complete Time: 22:02 pkl 08/21 22:01 Order name: EKG - Nurse/Tech; Complete Time: 23:27 pkl 08/21 22:01 Order name: IV Saline Lock; Complete Time: 22:35 pkl 08/21 22:01 Order name: Labs collected and sent; Complete Time: 22:35 pkl 08/21 22:01 Order name: Urine Dipstick-Ancillary (obtain specimen); Complete Time: 00:03 pkl 08/22 00:04 Order name: Straight Cath; Complete Time: 00:04 ca1 Administered Medications: 08/21 22:30 Drug: Banana Bag - (NS 0.9% 1000 ml, foLIC Acid 1 mg, Thiamine 100 mg, Multivitamin 1 ca1 amp) Route: IV; Rate: calculated rate; Site: left antecubital; 08/22 03:00 Follow up: Response: No adverse reaction; IV Status: Completed infusion; IV Intake: rr5 1000ml ; by roman PIERRE Disposition: 08/22/18 04:50 Discharged to Home. Impression: Altered mental status. Substance abuse. Ingestion of alcohol. S/P Fall. - Condition is Stable. - Medication Reconciliation Form, Thank You Letter, Antibiotic Education, Prescription Opioid Use form. - Follow up: Private Physician; When: 1 - 2 days; Reason: Re-evaluation by your physician. - Problem is new. - Symptoms have improved. Signatures: Dispatcher [employer] EDMS Lamberto Méndez MD MD pkl Chretien, Felicia RN RN fc Zoran Quesada RN RN rr5 Sandra Zhu RN RN ca1 Corrections: (The following items were deleted from the chart) 04:49 04:44 Data reviewed: vital signs, nurses notes, lab test result(s), urine drug screen, pkl Positive for Benzo and Meth. ETOH 73, EKG, radiologic studies, CT scan, pkl 05:00 04:50 08/22/2018 04:50 Discharged to Home. Impression: Altered mental status. Substance rr5 abuse. Ingestion of alcohol. S/P Fall. Condition is Stable. Forms are Medication Reconciliation Form, Thank You Letter, Antibiotic Education, Prescription Opioid Use. Follow up: Private Physician; When: 1 - 2 days; Reason: Re-evaluation by your physician. Problem is new. Symptoms have improved. pkl
--- NOTE | 2018-08-22 05:42 | EKG ---
Test Date: 2018-08-21 Test Time: 23:20:57 Design Technology Professor: ALEXAT MEASUREMENT RESULTS: Intervals: Rate: 68 AL: 176 QRSD: 90 QT: 456 QTc: 484 [place]: P: 49 AL: 176 QRS: 51 T: 82 INTERPRETIVE STATEMENTS: Normal sinus rhythm Abnormal ECG Compared to ECG 03/17/2017 10:05:28 Sinus bradycardia no longer present Electronically Signed On 08-22-18 05:41:33 CDT by Mendoza Grider
--- NOTE | 2018-08-22 08:13 | RAD REPORT ---
EXAM DESCRIPTION: RAD - Shoulder Right 2 View - 08/21/2018 10:49 pm CLINICAL HISTORY: Right shoulder pain status post fall FINDINGS: No fracture or dislocation is seen. Osteoporosis
--- NOTE | 2018-08-22 08:30 | RAD REPORT ---
EXAM DESCRIPTION: Markell Single View08/21/2018 10:46 pm CLINICAL HISTORY: Chest pain COMPARISON: July 2018 FINDINGS: The lungs appear clear of acute infiltrate. The heart is normal size IMPRESSION: No acute abnormalities displayed
--- NOTE | 2018-08-22 11:21 | RAD REPORT ---
EXAM DESCRIPTION: CT - Head C Spine Mpr Wo Con - 08/22/2018 1:12 am CLINICAL HISTORY: 57 years Female fall with soft tissue swelling on the left side of the head. COMPARISON: None. TECHNIQUE: Contiguous axial CT images obtained through the brain without IV contrast. This exam was performed according to our department optimization program which includes automated exp osure control, adjustment of the mA and/or kv according to patient size and/or use of iterative recon struction technique. FINDINGS: The ventricles and sulci appear unremarkable. No mass lesions. No acute hemorrhage. Atherosclerotic calcifications in the distal internal carotid arteries. Soft tissue swelling in the left scalp consistent with hematoma/contusion. Small radiopaque density i n the superior scalp on the left which may be chronic. Clinical correlation recommended. Mild mucosal thickening in the left maxillary sinus. No depressed calvarial fractures. IMPRESSION: No acute intracranial abnormality is identified. Soft tissue swelling in the left scalp consistent with hematoma/contusion. Small radiopaque density in the superior scalp on the left which may be chronic. Clinical correlation recommended to exclude a foreign body. EXAM DESCRIPTION: Head C Spine Mpr Wo Con CLINICAL HISTORY: 57 years Female fall COMPARISON: None. TECHNIQUE: Contiguous axial images obtained through the cervical spine without IV contrast. Coronal and sagittal reformatted images obtained. This exam was performed according to our department optimization program which includes automated exp osure control, adjustment of the mA and/or kv according to patient size and/or use of iterative recon struction technique. FINDINGS: Straightening of the normal lordosis. Minimal listhesis at some levels which is likely degenerative. Mild flattening of the C5 and C6 vertebral bodies which appears chronic. Area of sclerosis within the C5 vertebral body which is nonspecific. Degenerative changes of the uncovertebral joints and facets. There are small posteriorly projecting o steophytes at C5-6 and C6-7. There is moderate left neural foraminal stenosis at C5-6 and C6-7. There is dental disease involving a left maxillary molar tooth. IMPRESSION: No acute cervical spinal fracture is identified. Area of sclerosis within the C5 vertebral body which is nonspecific. Bone scanning could be obtained if there is concern for metastatic disease. Degenerative changes. Dental disease involving a left maxillary molar tooth. Electronically signed by: Kai Duarte MD 08/21/2018 11:13 PM CDT Due to temporary technical issues with the PACS/Fluency reporting system, reports are being signed by the in house radiologist as a courtesy to ensure prompt reporting. The interpreting radiologist is f ully responsible for the content of the report.
== END 2018-08-22 05:00 | disposition home or self-care (01) ==
LOC: ER 21:38
DX: R51 Headache (principal); W06.XXXA Fall from bed, initial encounter; I10 Essential (primary) hypertension; F32.9 Major depressive disorder, single episode, unspecified; Z72.0 Tobacco use; R41.82 Altered mental status, unspecified; F19.10 Other psychoactive substance abuse, uncomplicated
CPT/HCPCS: 36415; 51702; 70450; 71045; 72125; 80048; 80076; 80307; 80320; 80329; 81003; 85025; 85610; 85730; 93005; 96365; 96366; 99285; J3411; J7030

== ENCOUNTER 2019-02-28 16:26 | Emergency (ER) | payer OTHER, SELFPAY ==
[2019-02-28] MEDS ORDERED: HYDROCODONE/APAP 5/325 MG TAB ONE (16:55)
--- NOTE | 2019-02-28 17:14 | RAD REPORT ---
EXAM DESCRIPTION: RAD - Wrist Right 3 View - 02/28/2019 5:08 pm CLINICAL HISTORY: PAIN Pain COMPARISON: No comparisons FINDINGS: The bones are quite osteopenic. A nondisplaced distal radius fracture is suspected extend ing to the articular surface. Mild soft tissue swelling is present posteriorly.
--- NOTE | 2019-02-28 17:34 | EDPHYS ---
Physician Documentation [facility] Name: Norma Boggs Age: 58 yrs Sex: Female : 1960 Arrival Date: 02/28/2019 Time: 16:29 Bed 19 Private MD: ED Physician Marco A Bright HPI: 02/28 16:50 This 58 yrs old Female presents to ER via Ambulatory with complaints of Wrist pm1 Injury. 16:50 The patient or guardian reports pain. The complaints affect the right wrist diffusely. pm1 Context: The problem was sustained at home, resulted from a fall. Onset: The symptoms/episode began/occurred 2 day(s) ago. Modifying factors: The symptoms are alleviated by holding still, the symptoms are aggravated by movement. Associated signs and symptoms: Pertinent negatives: cyanosis distally, decreased sensation distally, numbness distally, tingling distally. history of fracture to right hand. The patient has not recently seen a physician. Historical: - Allergies: 16:42 No Known Allergies; hb - Home Meds: 16:57 Xanax 1 mg Oral tab 1 tab [Active]; amlodipine 5 mg tab [Active]; gabapentin Oral tw2 [Active]; lisinopril Oral [Active]; Lyrica Oral [Active]; Protonix Oral [Active]; - PMHx: 16:57 Back pain; BOWEL PERFORATION; carpal tunnel; Depression; Diverticulitis; GI Bleed; tw2 Hypertension; Thyroid problem; - PSHx: 16:57 right rotator cuff repair; tw2 - Immunization history:: Adult Immunizations up to date. - Social history:: Smoking status: Patient uses tobacco products, smokes one-half pack cigarettes per day. - Ebola Screening: : No symptoms or risks identified at this time. ROS: 16:50 Constitutional: Negative for fever, chills, and weight loss, Neck: Negative for injury, pm1 pain, and swelling, Cardiovascular: Negative for chest pain, palpitations, and edema, Respiratory: Negative for shortness of breath, cough, wheezing, and pleuritic chest pain, Abdomen/GI: Negative for abdominal pain, nausea, vomiting, diarrhea, and constipation, Back: Negative for injury and pain. 16:50 Skin: Negative for injury, rash, and discoloration, Neuro: Negative for headache, weakness, numbness, tingling, and seizure. 16:50 MS/extremity: Positive for pain, of the medial aspect of right wrist, Negative for decreased range of motion, deformity. Exam: 16:50 Hand exam: is negative for snuff box/scaphoid tenderness, Exam is positive for pm1 tenderness, ROM: intact in all extremities, Circulation is intact in all extremities. sensation intact. 16:50 Skin: Exam negative for acute changes. 16:50 Constitutional: This is a well developed, well nourished patient who is awake, alert, and in no acute distress. Head/Face: Normocephalic, atraumatic. Neck: Trachea midline, no thyromegaly or masses palpated, and no cervical lymphadenopathy. Supple, full range of motion without nuchal rigidity, or vertebral point tenderness. No Meningismus. Chest/axilla: Normal chest wall appearance and motion. Nontender with no deformity. No lesions are appreciated. Cardiovascular: Regular rate and rhythm with a normal S1 and S2. No gallops, murmurs, or rubs. Normal PMI, no JVD. No pulse deficits. Respiratory: Lungs have equal breath sounds bilaterally, clear to auscultation and percussion. No rales, rhonchi or wheezes noted. No increased work of breathing, no retractions or nasal flaring. Back: No spinal tenderness. No costovertebral tenderness. Full range of motion. 16:50 Neuro: Orientation: is normal, Motor: is normal, moves all fours, Sensation: is normal, no obvious gross deficits, Gait: is steady, at a normal pace, without difficulty. Vital Signs: 16:40 BP 138 / 92; Pulse 92; Resp 16; Temp 97.2; Pulse Ox 100% on R/A; Weight 63.5 kg; Height hb 5 ft. 7 in. (170.18 cm); Pain 7/10; 16:40 Body Mass Index 21.93 (63.50 kg, 170.18 cm) hb MDM: 16:43 Patient medically screened. pm1 16:54 Data reviewed: vital signs. Data interpreted: Pulse oximetry: on room air is 100 %. pm1 Interpretation: normal. 17:32 Counseling: I had a detailed discussion with the patient and/or guardian regarding: the pm1 historical points, exam findings, and any diagnostic results supporting the discharge/admit diagnosis, radiology results, the need for outpatient follow up, a orthopedic surgeon, to return to the emergency department if symptoms worsen or persist or if there are any questions or concerns that arise at home. 17:32 ED course: Patient does not want sugar tong splint. Will place patient on premade cock pm1 up wrist splint. 02/28 16:49 Order name: Wrist Right 3 View XRAY; Complete Time: 17:28 pm1 02/28 17:32 Order name: Splint - Wrist; Complete Time: 17:59 pm1 Administered Medications: 17:02 Drug: [place] 5 mg-325 mg 1 tabs Route: PO; tw2 18:00 Follow up: Response: No adverse reaction; Pain is decreased; RASS: Alert and Calm (0) tw2 Disposition: 03/01 09:20 Co-signature as Attending Physician, Marco A Bright MD I agree with the assessment and kdr plan of care. Disposition: 02/28/19 17:34 Discharged to Home. Impression: nondisplaced distal radius fracture. - Condition is Stable. - Discharge Instructions: Wrist Fracture Treated With Immobilization, Wrist Splint. - Prescriptions for Tylenol- Codeine #3 300-30 mg Oral Tablet - take 2 tablets by ORAL route every 6 hours As needed; 20 tablet. - Medication Reconciliation Form, Thank You Letter, Antibiotic Education, Prescription Opioid Use form. - Follow up: Emergency Department; When: As needed; Reason: Worsening of condition. Follow up: Private Physician; When: 2 - 3 days; Reason: Recheck today's complaints, Continuance of care, Re-evaluation by your physician. - Problem is new. - Symptoms have improved. Signatures: Dispatcher [employer] EDMS Marco A Bright MD MD [facility] Jong Olivarez NP SENIOR ANALYST PROGRAMMER pm1 Monique Davis RN RN Darlene Rivera RN RN tw2 Corrections: (The following items were deleted from the chart) 02/28 18:01 17:34 02/28/2019 17:34 Discharged to Home. Impression: nondisplaced distal radius tw2 fracture. Condition is Stable. Forms are Medication Reconciliation Form, Thank You Letter, Antibiotic Education, Prescription Opioid Use. Follow up: Emergency Department; When: As needed; Reason: Worsening of condition. Follow up: Private Physician; When: 2 - 3 days; Reason: Recheck today's complaints, Continuance of care, Re-evaluation by your physician. Problem is new. Symptoms have improved. pm1 18:15 17:32 ED course: Patient insists that there are bugs crawling in her skin. Insists on pm1 Elimite prescription. pm1
--- NOTE | 2019-02-28 17:34 | ER ---
Nurse's Notes [facility] Name: Norma Boggs Age: 58 yrs Sex: Female : 1960 Arrival Date: 02/28/2019 Time: 16:29 Bed 19 Private MD: Diagnosis: nondisplaced distal radius fracture Presentation: 02/28 16:40 Presenting complaint: Right wrist and hand pain after mechanical fall from standing 2 hb days ago. Transition of care: patient was not received from another setting of care. Onset of symptoms was February 26, 2019. Risk Assessment: Do you want to hurt yourself or someone else? Patient reports no desire to harm self or others. Care prior to arrival: None. 16:40 Method Of Arrival: Ambulatory hb 16:40 Acuity: ABDULLAHI 4 hb 16:56 Initial Sepsis Screen: Does the patient meet any 2 criteria? No. Patient's initial tw2 sepsis screen is negative. Does the patient have a suspected source of infection? No. Patient's initial sepsis screen is negative. Triage Assessment: 16:59 General: Appears. Injury Description: from fall. tw2 Historical: - Allergies: 16:42 No Known Allergies; hb - Home Meds: 16:57 Xanax 1 mg Oral tab 1 tab [Active]; amlodipine 5 mg tab [Active]; gabapentin Oral tw2 [Active]; lisinopril Oral [Active]; Lyrica Oral [Active]; Protonix Oral [Active]; - PMHx: 16:57 Back pain; BOWEL PERFORATION; carpal tunnel; Depression; Diverticulitis; GI Bleed; tw2 Hypertension; Thyroid problem; - PSHx: 16:57 right rotator cuff repair; tw2 - Immunization history:: Adult Immunizations up to date. - Social history:: Smoking status: Patient uses tobacco products, smokes one-half pack cigarettes per day. - Ebola Screening: : No symptoms or risks identified at this time. Screenin:56 Abuse screen: Denies threats or abuse. Nutritional screening: No deficits noted. tw2 Tuberculosis screening: No symptoms or risk factors identified. Fall Risk None identified. Assessment: 16:58 General: Appears in no apparent distress. Behavior is calm, cooperative, appropriate tw2 for age. Pain: Complains of pain in right hand. Neuro: Level of Consciousness is awake, alert, obeys commands, Oriented to person, place, time, situation. Cardiovascular: Patient's skin is warm and dry. Respiratory: Airway is patent Respiratory effort is even, unlabored, Respiratory pattern is regular, symmetrical. GI: No signs and/or symptoms were reported involving the gastrointestinal system. : No signs and/or symptoms were reported regarding the genitourinary system. EENT: No signs and/or symptoms were reported regarding the EENT system. Derm: No signs and/or symptoms reported regarding the dermatologic system. Musculoskeletal: Circulation, motion, and sensation intact. Range of motion: intact in all extremities. 17:59 Reassessment: Patient appears in no apparent distress at this time. No changes from tw2 previously documented assessment. Patient and/or family updated on plan of care and expected duration. Pain level reassessed. Patient is alert, oriented x 3, equal unlabored respirations, skin warm/dry/pink. Vital Signs: 16:40 BP 138 / 92; Pulse 92; Resp 16; Temp 97.2; Pulse Ox 100% on R/A; Weight 63.5 kg; Height hb 5 ft. 7 in. (170.18 cm); Pain 7/10; 16:40 Body Mass Index 21.93 (63.50 kg, 170.18 cm) hb ED Course: 16:29 Patient arrived in ED. as 16:41 Triage completed. hb 16:42 Arm band placed on. hb 16:42 Bed in low position. Call light in reach. Adult w/ patient. tw2 16:43 Jong Olivarez NP is PHCP. pm1 16:43 Marco A Bright MD is Attending Physician. pm1 16:52 Darlene Rivera RN is Primary Nurse. tw2 17:08 Wrist Right 3 View XRAY In Process Unspecified. EDMS 17:45 Velcro wrist splint applied to right wrist. dh3 17:59 No provider procedures requiring assistance completed. Patient did not have IV access tw2 during this emergency room visit. Administered Medications: 17:02 Drug: [place] 5 mg-325 mg 1 tabs Route: PO; tw2 18:00 Follow up: Response: No adverse reaction; Pain is decreased; RASS: Alert and Calm (0) tw2 Outcome: 17:34 Discharge ordered by . pm1 18:00 Discharged to home ambulatory. tw2 18:00 Condition: stable 18:00 Discharge instructions given to patient, Instructed on discharge instructions, follow up and referral plans. no drinking with medication, no driving heavy equipment, medication usage, Demonstrated understanding of instructions, follow-up care, medications, Prescriptions given X 1. 18:01 Patient left the ED. tw2 Signatures: Dispatcher [employer] EDAna Luisa Muro Patrick, NP INTERLOCKING INSTALLER pm1 Monique Davis RN RN Darlene Rivera RN RN tw2 Layla Lacy 3
[2019-02-28 18:25] VITALS: BP 138/92; TEMP 97.2; O2SAT 100
== END 2019-02-28 18:01 | disposition home or self-care (01) ==
LOC: ER 16:26
DX: S52.501A Unspecified fracture of the lower end of right radius, initial encounter for closed fracture (principal); I10 Essential (primary) hypertension; F41.8 Other specified anxiety disorders; W18.30XA Fall on same level, unspecified, initial encounter; Y93.9 Activity, unspecified; Y92.9 Unspecified place or not applicable
CPT/HCPCS: 99284

== ENCOUNTER 2020-01-24 13:12 | Inpatient (IN) | payer OTHER ==
--- OUTSIDE RECORDS SUMMARY | 2020-01-24 13:14 | XMS REPORT | Clinical Summary ---
:1960 Author Organization [facility] Address [address] [place] [address] Care Team Providers Name Role Phone Unavailable Primary Care Provider Unavailable Allergies No Known Allergies Medications Medication Sig Dispensed Refills Start Date End Date Status ALPRAZolam (XANAX) 1 MG Take 1 mg by 0 Active tabletIndications: mouth every night anxious as needed for Anxiety. lisinopril-hydroCHLOROt Take 1 tablet by 0 Active hiazide mouth daily. (PRINZIDE,ZESTORETIC) 20-25 mg per tablet amLODIPine (NORVASC) 5 Take 5 mg by 0 Active MG tablet mouth daily. gabapentin (NEURONTIN) Take 600 mg by 0 Active 600 MG tablet mouth 3 (three) times daily. traMADol (ULTRAM) 50 mg Take 1 tablet (50 30 tablet 0 03/21/20 17 Active tablet mg total) by mouth every 8 (eight) hours as needed for Pain. Max Daily Amount: 150 mg pantoprazole (PROTONIX) Take 1 tablet (40 30 tablet 0 03/22/20 17 Active 40 MG tablet mg total) by [...] User Tobacco Cessation: Ready to Quit: No; Co unseling Given: No Alcohol Use Drinks/Week oz/Week Comments Yes social once a mo nth Sex Assigned at Date Recorded Not on file Job Start Date Occupation Industry Not on file Not on file Not on file Travel History Travel Start Travel End No recent travel history available. Last Filed Vital Signs Not on file Plan of Treatment Not on file Results Not on fileafter 01/23/2019 Insurance Payer Benefit Plan / Group Subscriber ID Type Phone [facility] CHOICE xxxxxxxxxxxx HMO/POS CHOICE EXCHANGE Advance Directives For more information, please contact:[address] [phone] Code Status Date Activated Date Inactivated Comments Full Code 03/17/2017 3:19 PM 03/21/2017 9:59 PM This code status was determined by: Patient Name Relationship Healthcare Agent Relationship Ph one Hannah Boggs Daughter First alternate healthcare agent [phone] Scarlett Olmstead Other Second alternate healthcare agen t [phone]
--- OUTSIDE RECORDS SUMMARY | 2020-01-24 13:15 | XMS REPORT | Continuity of Care Document ---
:1960 Author Organization [facility] t Address [address] [place] [address] Care Team Providers Name Role Phone Doctor Unassigned, Name Attending Clinician Unavailable [place] PEREZ, L Attending Clinician STEPHEN BLACKWELL Attending Clinician Unavailable STEPHEN BLACKWELL Admitting Clinician Unavailable Problems Condition Condition Condition Status Onset Resolution Last Treating Co mments Source Name Details Category Date Date Treatment Clinician Date Severe Severe Disease Active 2016-[address] [facility] sepsis sepsis 05-22 [facility] [place] Acute Acute Disease Active 2016-[address] [facility] abdominal abdominal 05-17 [facility] - pain pain 00:00: Medical 00 [place] Anxiety Anxiety Disease Active 2016-[address] [facility] 05-17 [facility] 00 [place] Benign Benign Disease Active 2016-[address] [facility] essential essential 05-17 [facility] - HTN HTN 00:00: Medical 00 [place] Hypotensio Hypotensio Disease Active 2016-[address] n n 05-17 [facility] 00 [place] Sciatic Sciatic Disease Active 2016-[address] [facility] nerve nerve 05-17 [facility] - injury injury 00:00: Medical 00 [place] SOB SOB Disease Active 2016-[address] [facility] (shortness (shortness 05-17 Terri kes - of breath) of breath) 00:00: Me dical 00 [place] Kidney Kidney Disease Active 2017-[address] [facility] disease disease 05-17 [facility] 00 [place] Leukocytos Leukocytos Disease Active 2016-[address] is is 05-17 [facility] 00:[facility]: [facility] 00 [place] Allergies, Adverse Reactions, Alerts This patient has no known allergies or adverse reactions. Family History Family Member Diagnosis Comments Start Date Stop Date Source Natural father Miscarriages / [facility] - [facility] Natural mother COPD [facility] Social History Social Habit Start Date Stop Date Quantity Comments Source Sex Assigned At [facility] Cigarettes smoked 2017-03-18 2017-03-18 [facility] - current (pack per 00:00:00 00:00:00 Medical Center day) - Reported Cigarette 2017-03-18 2017-03-18 [facility] - pack-years 00:00:00 00:00:00 [facility] Alcohol Comment 2017-03-17 2017-03-17 social once a [facility] - 00:00:00 00:00:00 month [facility] Smoking Status Start Date Stop Date Source Current every day smoker 2017-03-18 00:00:00 [facility] Medications Ordered Filled Start Stop Current Ordering Indication Dosage Frequency Signature Comments Components Source Medication Medication Date Date Medication? Clinician (SIG) Name Name pantoprazol 2016-05 Yes 40mg QD Take [address] [facility] e 1-14 tablet (40 [facility] - (PROTONIX) 00:00: mg total) Me dical 40 MG 00 by mouth Center tablet daily. traMADol 2016-05 Yes 50mg Take [address] [facility] (ULTRAM) 50 1-13 tablet (50 Terri kes - mg tablet 00:00: mg total) Med ical 00 by mouth Center every 8 (eight) hours as needed for Pain. Max Daily Amount: 150 mg gabapentin 2016-05 Yes 600mg Q.[id number] Take [address] [facility] (NEURONTIN) 05-17 [id number] mg by L ukes - 600 MG 15:19: 3D mouth 3 Medical tablet 38 (three) Center times daily. ALPRAZolam 2016-05 Yes anxious 1mg Take [address] [facility] (XANAX) 05-17 by mouth [facility] - MG tablet 15:19: every Medical 37 night as Center needed for Anxiety. lisinopril- 2016-05 Yes 1{tbl} QD Take [address] hydroCHLORO 1-09 tablet by [facility] - thiazide 15:19: mouth Medical (PRINZIDE,Z 37 daily. Center ESTORETIC) 20-25 mg per tablet amLODIPine 2016-05 Yes 5mg QD Take [address] [facility] [address] [facility] (NORVASC) 5 1-09 by mouth [facility] - MG tablet 15:19: daily. Medica l 37 Center Procedures This patient has no known procedures. Encounters Start End Encounter Admission Attending Care Care Encounter Source Date/Time Date/Time Type Type Clinicians Facility Department ID 2019-06-19 2019-06-19 Orders Doctor CONSTANTIN [id number] 00:00:00 00:00:00 Only Unassigned, MARIANELA [id number] [place] [facility] [id number] 2019-06-18 2019-06-18 Telephone [place] [id number] 00:00:00 00:00:00 [facility] [id number] Surgical [id number] Specialti [id number] [address] [place] Results Test Description Test Time Test Comments Results Result Comments Source BLOOD CULTURE 2017-03-22 23:00:00 Test Item Value Reference Range Interpretation Comme nts CULTURE (BEAKER) (test code = 1095) No growth in 5 days BLOOD [id number] 23:00:00 Test Item Value Reference Range Interpretation Comments CULTURE (BEAKER) (test No growth in 5 days code = 1095) ANAEROBIC [id number] 04:03:00 Test Item Value Reference Range Interpretation Comments CULTURE (BEAKER) (test No anaerobes isolated code = 1095) TISSUE [id number] 18:46:00Surgical Pathology Report Case: [id number] Authorizing Provider: Adalid Blackwell MD Collected: 03/17/20172024 Ordering Location: [address] Received: 03/18/2017 0801 Cardiovascular Pathologist: Sania Chambers MD Specimen: Gastric, Gastric antrum Biopsy This addendum is being issued to report the GMS stain.RESULT:- GMS stain highlights non-branching fungal pseudohyphal e lements. Morphologically, these are suggestive of Amber species.- It is possible that this could represent colonization of the mucosa post-ulceration- Clinical and radiologic correlation is recommended.[id number] electronically signed by Sania Chambers MD on 03/21/2017 at 6:46 PMA. STOMACH,ANTRUM, BIOPSY: - GASTRIC WALL WITH ULCERATION AND MARKED ACUTE AND CHRONIC INFLAMMATION - NEGATIVE FOR MALIGNANCY - SEE COMMENT AND MICROSCOPIC DESCRIPTION Signing Pathologist Direct Phone Line: [phone] signed by Sania Chambers MD on 03/21/2017 at 5:51 PMPreliminary result electronically signed by Sania Chambers MD on 03/19/2017 at 10:07 AMGiven the presence of non-specific refractile polarizable fragments in the superficial mucosa and deeper gastric wall, medication induced gastritis and subsequent ulceration is a possibility. Possibility of a contaminant cannot be entirely excluded. Clinical and radiologic correlation is recommended.[id number] perforationGastric antrum biopsyA. Received in formalin labeled "gastric antrum" are two fragments of herrera-pink tissue measuring 0.3-0.5 cm in greatest dimension. Specimen is entirely submitted in b lock A1.Received in formalin labeled "gastric", description "gastric antrum biopsy" are two irregular, pink-herrera to joel-white, rubbery fragments of soft tissue measuring 0.5 cm and 1.5 cm in greatest dimension. The specimen is entirely submitted in A1. DB/ew Sections show gastric wall with complete ulc eration of the lining epithelium and superficial mucosa. [...] developed and its performance characteristics determined by [facility], Pathology Laboratory. It has not been cleared [...] to perform high complexity clinical laboratory testing.CT, ABDOMEN 2017-03-21 18:07:00Please give IV and ORAL contrast to [...] stones. The visualized liver, spleen, adrenal glands, k idneys, pancreas, stomach and duodenum are within normal limits. There is no abdominal, retroperitoneal or pelvic lymphadenopathy. Multilevel degenerative disc changes of the thoracic spine are seen. Postsurgical changes are seen in the anterior abdominal wall. There is some partial dehiscence of the s ubcutaneous fat of the anterior abdominal wall. No [...] effusions, left greater than right. Signed: Carina Jerome MDReport Verified Date/Time: 03/21/2017 18:07:08 Reading Location: [place] [id number] CT Body Reading Room POCT-GLUCOSE [id number] 17:34:00 Test Item Value Reference Range Interpretation Comments POC-GLUCOSE METER 111 mg/dL 70-110 H TESTED AT [place] [address] (BEAKER) (test code = [facility] 1538) [address] SURGICALLY OBTAINED CULTURE + GRAM [id number] 15:37:00 Test Item Value Reference Range Interpretation Comments CULTURE (BEAKER) A 1+ Amber (test code = 1095) albicans GRAM STAIN RESULT 2+ White blood (BEAKER) (test code cells seen = 1123) GRAM STAIN RESULT No organisms (BEAKER) (test code seen = 127026) CULTURE (BEAKER) (test code = 1095) 5-Flurocytosine S (test code = 237) Caspofungin acetate S (test code = 141) Fluconazole (test S code = 143) Itraconazole (test S code = 146) Micafungin (test S code = 148) Voriconazole (test S code = 153) Amphotericin B Susceptible >0-0 , No (test code = 136) Interpretations Established <=0 or >0 Posaconazole (test Susceptible >0-0 , No code = 152) Interpretations Established <=0 or >0 GRAM STAIN RESULT No organisms (BEAKER) (test code seen = 507139) POCT-GLUCOSE [id number] 12:25:00 Test Item Value Reference Range Interpretation Comments POC-GLUCOSE METER 88 mg/dL 70-110 TESTED AT [facility] 6720 (BEAKER) (test code = [place] [facility] [address] 1538) [id number] 05:41:00 Test Item Value Reference Range Interpretation Comments PHOSPHORUS (BEAKER) (test code = 2.8 mg/dL 2.3-4.7 604) [id number] 05:41:00 Test Item Value Reference Range Interpretation Comments MAGNESIUM (BEAKER) (test code = 2.1 mg/dL 1.6-2.6 627) BASIC METABOLIC [id number] 05:41:00 Test Item Value Reference Range Interpretation Comments SODIUM (BEAKER) 137 meq/L 136-145 (test code = 381) POTASSIUM (BEAKER) 2.9 meq/L 3.5-5.1 L (test code = 379) CHLORIDE (BEAKER) 101 meq/L 98-107 (test code = 382) CO2 (BEAKER) (test 25 meq/L 22-29 code = 355) BLOOD UREA NITROGEN 9 mg/dL 7-21 (BEAKER) (test code = 354) CREATININE (BEAKER) 0.69 mg/dL 0.57-1.25 (test code = 358) GLUCOSE RANDOM 93 mg/dL 70-105 (BEAKER) (test code = 652) CALCIUM (BEAKER) 8.8 mg/dL 8.4-10.2 (test code = 697) EGFR (BEAKER) (test 88 mL/min/1.73 ESTIMA LANNY GFR IS code = 1092) sq m NOT ACCURATE CREATININE CLEARANCE IN PREDICTING GLOMERULAR FILTRATION RATE . ESTIMATED GFR I S NOT APPLICABLE FOR DIALYSIS PATIEN TS. CBC W/PLT COUNT & AUTO [id number] 05:34:00 Test Item Value Reference Range Interpretation Comments WHITE BLOOD CELL COUNT (BEAKER) 13.1 K/ L 3.5-10.5 H (test code = 775) RED BLOOD CELL COUNT (BEAKER) 3.74 M/ L 3.93-5.22 L (test code = 761) HEMOGLOBIN (BEAKER) (test code = 12.3 GM/DL 11.2-15.7 410) HEMATOCRIT (BEAKER) (test code = 35.7 % 34.1-44.9 411) MEAN CORPUSCULAR VOLUME (BEAKER) 95.5 fL 79.4-94.8 H (test code = 753) MEAN CORPUSCULAR HEMOGLOBIN 32.9 pg 25.6-32.2 H (BEAKER) (test code = 751) MEAN CORPUSCULAR HEMOGLOBIN CONC 34.5 GM/DL 32.2-35.5 (BEAKER) (test code = 752) RED CELL DISTRIBUTION WIDTH 13.8 % 11.7-14.4 (BEAKER) (test code = 412) PLATELET COUNT (BEAKER) (test 251 K/CU MM 150-450 code = 756) MEAN PLATELET VOLUME (BEAKER) 8.9 fL 9.4-12.3 L (test code = 754) NUCLEATED RED BLOOD CELLS 0 /100 WBC 0-0 (BEAKER) (test code = 413) NEUTROPHILS RELATIVE PERCENT 77 % (BEAKER) (test code = 429) LYMPHOCYTES RELATIVE PERCENT 12 % (BEAKER) (test code = 430) MONOCYTES RELATIVE PERCENT 5 % (BEAKER) (test code = 431) EOSINOPHILS RELATIVE PERCENT 5 % (BEAKER) (test code = 432) BASOPHILS RELATIVE PERCENT 0 % (BEAKER) (test code = 437) NEUTROPHILS ABSOLUTE COUNT 10.05 K/ L 1.56-6.13 H (BEAKER) (test code = 670) LYMPHOCYTES ABSOLUTE COUNT 1.54 K/ L 1.18-3.74 (BEAKER) (test code = 414) MONOCYTES ABSOLUTE COUNT (BEAKER) 0.67 K/ L 0.24-0.36 H (test code = 415) EOSINOPHILS ABSOLUTE COUNT 0.61 K/ L 0.04-0.36 H (BEAKER) (test code = 416) BASOPHILS ABSOLUTE COUNT (BEAKER) 0.03 K/ L 0.01-0.08 (test code = 417) IMMATURE GRANULOCYTES-RELATIVE 1 % 0-1 PERCENT (BEAKER) (test code = 2801) POCT-GLUCOSE [id number] 05:14:00 Test Item Value Reference Range Interpretation Comments POC-GLUCOSE METER 98 mg/dL 70-110 TESTED AT [place] [address] ([facility]) (test code = [facility] [address] 1538) POCT-GLUCOSE [id number] 00:28:00 Test Item Value Reference Range Interpretation Comments POC-GLUCOSE METER 104 mg/dL 70-110 TESTED AT [place] [address] ([facility]) (test code = [facility] 1538) [id number] POCT-GLUCOSE [id number] 17:13:00 Test Item Value Reference Range Interpretation Comments POC-GLUCOSE METER 90 mg/dL 70-110 TESTED AT [place] [address] ([facility]) (test code = [facility] [address] 1538) POCT-GLUCOSE [id number] 12:20:00 Test Item Value Reference Range Interpretation Comments POC-GLUCOSE METER 101 mg/dL 70-110 TESTED AT [facility] 6720 (BEAKER) (test code = [place] 1538) [id number] 06:21:00 Test Item Value Reference Range Interpretation Comments PHOSPHORUS (BEAKER) (test code = 2.5 mg/dL 2.3-4.7 604) [id number] 06:21:00 Test Item Value Reference Range Interpretation Comments MAGNESIUM (BEAKER) (test code = 1.8 mg/dL 1.6-2.6 627) BASIC METABOLIC [id number] 06:21:00 Test Item Value Reference Range Interpretation Comments SODIUM (BEAKER) 139 meq/L 136-145 (test code = 381) POTASSIUM (BEAKER) 2.9 meq/L 3.5-5.1 L (test code = 379) CHLORIDE (BEAKER) 105 meq/L 98-107 (test code = 382) CO2 (BEAKER) (test 22 meq/L 22-29 code = 355) BLOOD UREA NITROGEN 12 mg/dL 7-21 (BEAKER) (test code = 354) CREATININE (BEAKER) 0.72 mg/dL 0.57-1.25 (test code = 358) GLUCOSE RANDOM 85 mg/dL 70-105 (BEAKER) (test code = 652) CALCIUM (BEAKER) 8.4 mg/dL 8.4-10.2 (test code = 697) EGFR (BEAKER) (test 84 mL/min/1.73 ESTIMA LANNY GFR IS code = 1092) sq m NOT ACCURATE CREATININE CLEARANCE IN PREDICTING GLOMERULAR FILTRATION RATE . ESTIMATED GFR I S NOT APPLICABLE FOR DIALYSIS PATIEN TS. CBC W/PLT COUNT & AUTO [id number] 06:05:00 Test Item Value Reference Range Interpretation Comments WHITE BLOOD CELL COUNT (BEAKER) 16.4 K/ L 3.5-10.5 H (test code = 775) RED BLOOD CELL COUNT (BEAKER) 3.88 M/ L 3.93-5.22 L (test code = 761) HEMOGLOBIN (BEAKER) (test code = 12.6 GM/DL 11.2-15.7 410) HEMATOCRIT (BEAKER) (test code = 37.5 % 34.1-44.9 411) MEAN CORPUSCULAR VOLUME (BEAKER) 96.6 fL 79.4-94.8 H (test code = 753) MEAN CORPUSCULAR HEMOGLOBIN 32.5 pg 25.6-32.2 H (BEAKER) (test code = 751) MEAN CORPUSCULAR HEMOGLOBIN CONC 33.6 GM/DL 32.2-35.5 (BEAKER) (test code = 752) RED CELL DISTRIBUTION WIDTH 14.1 % 11.7-14.4 (BEAKER) (test code = 412) PLATELET COUNT (BEAKER) (test 210 K/CU MM 150-450 code = 756) MEAN PLATELET VOLUME (BEAKER) 9.1 fL 9.4-12.3 L (test code = 754) NUCLEATED RED BLOOD CELLS 0 /100 WBC 0-0 (BEAKER) (test code = 413) NEUTROPHILS RELATIVE PERCENT 82 % (BEAKER) (test code = 429) LYMPHOCYTES RELATIVE PERCENT 10 % (BEAKER) (test code = 430) MONOCYTES RELATIVE PERCENT 3 % (BEAKER) (test code = 431) EOSINOPHILS RELATIVE PERCENT 4 % (BEAKER) (test code = 432) BASOPHILS RELATIVE PERCENT 0 % (BEAKER) (test code = 437) NEUTROPHILS ABSOLUTE COUNT 13.48 K/ L 1.56-6.13 H (BEAKER) (test code = 670) LYMPHOCYTES ABSOLUTE COUNT 1.56 K/ L 1.18-3.74 (BEAKER) (test code = 414) MONOCYTES ABSOLUTE COUNT (BEAKER) 0.45 K/ L 0.24-0.36 H (test code = 415) EOSINOPHILS ABSOLUTE COUNT 0.69 K/ L 0.04-0.36 H (BEAKER) (test code = 416) BASOPHILS ABSOLUTE COUNT (BEAKER) 0.03 K/ L 0.01-0.08 (test code = 417) IMMATURE GRANULOCYTES-RELATIVE 1 % 0-1 PERCENT (BEAKER) (test code = 2801) POCT-GLUCOSE [id number] 05:44:00 Test Item Value Reference Range Interpretation Comments POC-GLUCOSE METER 99 mg/dL 70-110 TESTED AT [facility] 6720 ([facility]) (test code = [place] [address] 1538) POCT-GLUCOSE [id number] 23:08:00 Test Item Value Reference Range Interpretation Comments POC-GLUCOSE METER 107 mg/dL 70-110 TESTED AT [facility] 6720 (BEAKER) (test code = [place] 1538) [id number] POCT-GLUCOSE [id number] 17:56:00 Test Item Value Reference Range Interpretation Comments POC-GLUCOSE METER 102 mg/dL 70-110 TESTED AT [facility] 6720 (BEAKER) (test code = [place] 1538) [address] POCT-GLUCOSE [id number] 13:00:00 Test Item Value Reference Range Interpretation Comments POC-GLUCOSE METER 119 mg/dL 70-110 H TESTED AT [facility] 6720 (BEAKER) (test code = [place] 1538) [id number] 08:26:00 Test Item Value Reference Range Interpretation Comments PHOSPHORUS (BEAKER) (test code = 2.0 mg/dL 2.3-4.7 L 604) [id number] 08:26:00 Test Item Value Reference Range Interpretation Comments MAGNESIUM (BEAKER) (test code = 2.2 mg/dL 1.6-2.6 627) BASIC METABOLIC [id number] 08:26:00 Test Item Value Reference Range Interpretation Comments SODIUM (BEAKER) 141 meq/L 136-145 (test code = 381) POTASSIUM (BEAKER) 3.6 meq/L 3.5-5.1 (test code = 379) CHLORIDE (BEAKER) 108 meq/L 98-107 H (test code = 382) CO2 (BEAKER) (test 21 meq/L 22-29 L code = 355) BLOOD UREA NITROGEN 19 mg/dL 7-21 (BEAKER) (test code = 354) CREATININE (BEAKER) 0.87 mg/dL 0.57-1.25 (test code = 358) GLUCOSE RANDOM 91 mg/dL 70-105 (BEAKER) (test code = 652) CALCIUM (BEAKER) 8.5 mg/dL 8.4-10.2 (test code = 697) EGFR (BEAKER) (test 68 mL/min/1.73 ESTIMA LANNY GFR IS code = 1092) sq m NOT ACCURATE CREATININE CLEARANCE IN PREDICTING GLOMERULAR FILTRATION RATE . ESTIMATED GFR I S NOT APPLICABLE FOR DIALYSIS PATIEN TS. CBC W/PLT COUNT & AUTO [id number] 08:18:00 Test Item Value Reference Range Interpretation Comments WHITE BLOOD CELL COUNT (BEAKER) 15.8 K/ L 3.5-10.5 H (test code = 775) RED BLOOD CELL COUNT (BEAKER) 4.15 M/ L 3.93-5.22 (test code = 761) HEMOGLOBIN (BEAKER) (test code = 13.8 GM/DL 11.2-15.7 410) HEMATOCRIT (BEAKER) (test code = 41.4 % 34.1-44.9 411) MEAN CORPUSCULAR VOLUME (BEAKER) 99.8 fL 79.4-94.8 H (test code = 753) MEAN CORPUSCULAR HEMOGLOBIN 33.3 pg 25.6-32.2 H (BEAKER) (test code = 751) MEAN CORPUSCULAR HEMOGLOBIN CONC 33.3 GM/DL 32.2-35.5 (BEAKER) (test code = 752) RED CELL DISTRIBUTION WIDTH 14.7 % 11.7-14.4 H (BEAKER) (test code = 412) PLATELET COUNT (BEAKER) (test 210 K/CU MM 150-450 code = 756) MEAN PLATELET VOLUME (BEAKER) 9.6 fL 9.4-12.3 (test code = 754) NUCLEATED RED BLOOD CELLS 0 /100 WBC 0-0 (BEAKER) (test code = 413) NEUTROPHILS RELATIVE PERCENT 86 % (BEAKER) (test code = 429) LYMPHOCYTES RELATIVE PERCENT 8 % (BEAKER) (test code = 430) MONOCYTES RELATIVE PERCENT 3 % (BEAKER) (test code = 431) EOSINOPHILS RELATIVE PERCENT 2 % (BEAKER) (test code = 432) BASOPHILS RELATIVE PERCENT 0 % (BEAKER) (test code = 437) NEUTROPHILS ABSOLUTE COUNT 13.65 K/ L 1.56-6.13 H (BEAKER) (test code = 670) LYMPHOCYTES ABSOLUTE COUNT 1.22 K/ L 1.18-3.74 (BEAKER) (test code = 414) MONOCYTES ABSOLUTE COUNT (BEAKER) 0.51 K/ L 0.24-0.36 H (test code = 415) EOSINOPHILS ABSOLUTE COUNT 0.26 K/ L 0.04-0.36 (BEAKER) (test code = 416) BASOPHILS ABSOLUTE COUNT (BEAKER) 0.03 K/ L 0.01-0.08 (test code = 417) IMMATURE GRANULOCYTES-RELATIVE 1 % 0-1 PERCENT (BEAKER) (test code = 2801) POCT-GLUCOSE [id number] 07:31:00 Test Item Value Reference Range Interpretation Comments POC-GLUCOSE METER 104 mg/dL 70-110 TESTED AT [place] [address] (BEAKER) (test code = [place] [facility] 1538) [id number] POCT-GLUCOSE [id number] 00:39:00 Test Item Value Reference Range Interpretation Comments POC-GLUCOSE METER 91 mg/dL 70-110 TESTED AT [place] [address] (BEAKER) (test code = [facility] [place] [facility] [address] 1538) POCT-GLUCOSE [id number] 17:36:00 Test Item Value Reference Range Interpretation Comments POC-GLUCOSE METER 81 mg/dL 70-110 TESTED AT [place] [address] [facility] (test code = [facility] [place] [facility] [address] 1538) POCT-GLUCOSE [id number] 11:26:00 Test Item Value Reference Range Interpretation Comments POC-GLUCOSE METER 105 mg/dL 70-110 TESTED AT [place] [address] ([facility] (test code = [facility] [place] [facility] 1538) [id number] POCT-GLUCOSE [id number] 05:58:00 Test Item Value Reference Range Interpretation Comments POC-GLUCOSE METER 124 mg/dL 70-110 H TESTED AT [place] [address] (BEAKER) (test code = [facility] [place] [facility] 1538) [address] [id number] 03:33:00 Test Item Value Reference Range Interpretation Comments PHOSPHORUS (BEAKER) (test code = 4.9 mg/dL 2.3-4.7 H 604) [id number] 03:33:00 Test Item Value Reference Range Interpretation Comments MAGNESIUM (BEAKER) (test code = 1.7 mg/dL 1.6-2.6 627) BASIC METABOLIC [id number] 03:33:00 Test Item Value Reference Range Interpretation Comments SODIUM (BEAKER) 138 meq/L 136-145 (test code = 381) POTASSIUM (BEAKER) 4.5 meq/L 3.5-5.1 (test code = 379) CHLORIDE (BEAKER) 110 meq/L 98-107 H (test code = 382) CO2 (BEAKER) (test 20 meq/L 22-29 L code = 355) BLOOD UREA NITROGEN 29 mg/dL 7-21 H (BEAKER) (test code = 354) CREATININE (BEAKER) 1.12 mg/dL 0.57-1.25 (test code = 358) GLUCOSE RANDOM 124 mg/dL 70-105 H (BEAKER) (test code = 652) CALCIUM (BEAKER) 8.1 mg/dL 8.4-10.2 L (test code = 697) EGFR (BEAKER) (test 51 mL/min/1.73 ESTIMA LANNY GFR IS code = 1092) sq m NOT ACCURATE CREATININE CLEARANCE IN PREDICTING GLOMERULAR FILTRATION RATE . ESTIMATED GFR I S NOT APPLICABLE FOR DIALYSIS PATIEN TS. CBC W/PLT COUNT & AUTO [id number] 03:22:00 Test Item Value Reference Range Interpretation Comments WHITE BLOOD CELL COUNT (BEAKER) 19.3 K/ L 3.5-10.5 H (test code = 775) RED BLOOD CELL COUNT (BEAKER) 3.62 M/ L 3.93-5.22 L (test code = 761) HEMOGLOBIN (BEAKER) (test code = 11.9 GM/DL 11.2-15.7 410) HEMATOCRIT (BEAKER) (test code = 36.5 % 34.1-44.9 411) MEAN CORPUSCULAR VOLUME (BEAKER) 100.8 fL 79.4-94.8 H (test code = 753) MEAN CORPUSCULAR HEMOGLOBIN 32.9 pg 25.6-32.2 H (BEAKER) (test code = 751) MEAN CORPUSCULAR HEMOGLOBIN CONC 32.6 GM/DL 32.2-35.5 (BEAKER) (test code = 752) RED CELL DISTRIBUTION WIDTH 14.6 % 11.7-14.4 H (BEAKER) (test code = 412) PLATELET COUNT (BEAKER) (test 218 K/CU MM 150-450 code = 756) MEAN PLATELET VOLUME (BEAKER) 9.3 fL 9.4-12.3 L (test code = 754) NUCLEATED RED BLOOD CELLS 0 /100 WBC 0-0 (BEAKER) (test code = 413) NEUTROPHILS RELATIVE PERCENT 94 % (BEAKER) (test code = 429) LYMPHOCYTES RELATIVE PERCENT 3 % (BEAKER) (test code = 430) MONOCYTES RELATIVE PERCENT 3 % (BEAKER) (test code = 431) EOSINOPHILS RELATIVE PERCENT 0 % (BEAKER) (test code = 432) BASOPHILS RELATIVE PERCENT 0 % (BEAKER) (test code = 437) NEUTROPHILS ABSOLUTE COUNT 18.11 K/ L 1.56-6.13 H (BEAKER) (test code = 670) LYMPHOCYTES ABSOLUTE COUNT 0.55 K/ L 1.18-3.74 L (BEAKER) (test code = 414) MONOCYTES ABSOLUTE COUNT (BEAKER) 0.53 K/ L 0.24-0.36 H (test code = 415) EOSINOPHILS ABSOLUTE COUNT 0.00 K/ L 0.04-0.36 L (BEAKER) (test code = 416) BASOPHILS ABSOLUTE COUNT (BEAKER) 0.03 K/ L 0.01-0.08 (test code = 417) IMMATURE GRANULOCYTES-RELATIVE 0 % 0-1 PERCENT (BEAKER) (test code = 2801) (MANUAL DIFFERENTIAL)2017-03-17 22:54:00 Test Item Value Reference Range Interpretation Comments NEUTROPHILS - REL (DIFF) (BEAKER) 76 % (test code = 1359) LYMPHOCYTES - REL (DIFF) (BEAKER) 4 % (test code = 1360) MONOCYTES - REL (DIFF) (BEAKER) 2 % (test code = 1361) EOSINOPHILS - REL (DIFF) (BEAKER) 1 % (test code = 1362) BANDS - REL (DIFF) (BEAKER) (test 17 % 0-10 H code = 1348) NEUTROPHILS - ABS (DIFF) (BEAKER) 12.01 K/ L 1.80-8.00 H (test code = 1365) LYMPHOCYTES - ABS (DIFF) (BEAKER) 0.63 K/ L 1.48-4.50 L (test code = 1366) MONOCYTES - ABS (DIFF) (BEAKER) 0.32 K/ L 0.00-1.30 (test code = 1367) EOSINOPHILS - ABS (DIFF) (BEAKER) 0.16 K/ L 0.00-0.50 (test code = 1368) BANDS-ABS (DIFF) (BEAKER) (test 2.7 K/ L 0.0-0.8 H code = 1349) TOTAL COUNTED (BEAKER) (test code 100 = 1351) BANDS + SEGMENTED NEUTROPHILS 14.69 (BEAKER) (test code = 1352) WBC MORPHOLOGY (BEAKER) (test code Normal = 487) PLT MORPHOLOGY (BEAKER) (test code Normal = 486) RBC MORPHOLOGY (BEAKER) (test code Normal = 762) CBC W/PLT COUNT & AUTO [id number] 22:53:00 Test Item Value Reference Range Interpretation Comments WHITE BLOOD CELL COUNT (BEAKER) 15.8 K/ L 3.5-10.5 H (test code = 775) RED BLOOD CELL COUNT (BEAKER) 3.54 M/ L 3.93-5.22 L (test code = 761) HEMOGLOBIN (BEAKER) (test code = 11.8 GM/DL 11.2-15.7 410) HEMATOCRIT (BEAKER) (test code = 36.0 % 34.1-44.9 411) MEAN CORPUSCULAR VOLUME (BEAKER) 101.7 fL 79.4-94.8 H (test code = 753) MEAN CORPUSCULAR HEMOGLOBIN 33.3 pg 25.6-32.2 H (BEAKER) (test code = 751) MEAN CORPUSCULAR HEMOGLOBIN CONC 32.8 GM/DL 32.2-35.5 (BEAKER) (test code = 752) RED CELL DISTRIBUTION WIDTH 14.6 % 11.7-14.4 H (BEAKER) (test code = 412) PLATELET COUNT (BEAKER) (test 192 K/CU MM 150-450 code = 756) MEAN PLATELET VOLUME (BEAKER) 9.4 fL 9.4-12.3 (test code = 754) NUCLEATED RED BLOOD CELLS 0 /100 WBC 0-0 (BEAKER) (test code = 413) NEUTROPHILS RELATIVE PERCENT 91 % (BEAKER) (test code = 429) LYMPHOCYTES RELATIVE PERCENT 6 % (BEAKER) (test code = 430) MONOCYTES RELATIVE PERCENT 3 % (BEAKER) (test code = 431) EOSINOPHILS RELATIVE PERCENT 0 % (BEAKER) (test code = 432) BASOPHILS RELATIVE PERCENT 0 % (BEAKER) (test code = 437) NEUTROPHILS ABSOLUTE COUNT 14.33 K/ L 1.56-6.13 H (BEAKER) (test code = 670) LYMPHOCYTES ABSOLUTE COUNT 0.87 K/ L 1.18-3.74 L (BEAKER) (test code = 414) MONOCYTES ABSOLUTE COUNT (BEAKER) 0.51 K/ L 0.24-0.36 H (test code = 415) EOSINOPHILS ABSOLUTE COUNT 0.04 K/ L 0.04-0.36 (BEAKER) (test code = 416) BASOPHILS ABSOLUTE COUNT (BEAKER) 0.02 K/ L 0.01-0.08 (test code = 417) IMMATURE GRANULOCYTES-RELATIVE 0 % 0-1 PERCENT (BEAKER) (test code = 2801) COMPREHENSIVE METABOLIC [id number] 22:37:00 Test Item Value Reference Range Interpretation Comments TOTAL PROTEIN 5.3 gm/dL 6.0-8.3 L (BEAKER) (test code = 770) ALBUMIN (BEAKER) 2.9 g/dL 3.5-5.0 L (test code = 1145) ALKALINE PHOSPHATASE 60 U/L 40-150 (BEAKER) (test code = 346) BILIRUBIN TOTAL 0.8 mg/dL 0.2-1.2 (BEAKER) (test code = 377) SODIUM (BEAKER) (test 137 meq/L 136-145 code = 381) POTASSIUM (BEAKER) 3.9 meq/L 3.5-5.1 (test code = 379) CHLORIDE (BEAKER) 109 meq/L 98-107 H (test code = 382) CO2 (BEAKER) (test 20 meq/L 22-29 L code = 355) BLOOD UREA NITROGEN 34 mg/dL 7-21 H (BEAKER) (test code = 354) CREATININE (BEAKER) 1.27 mg/dL 0.57-1.25 H (test code = 358) GLUCOSE RANDOM 115 mg/dL 70-105 H (BEAKER) (test code = 652) CALCIUM (BEAKER) 7.9 mg/dL 8.4-10.2 L (test code = 697) AST (SGOT) (BEAKER) 51 U/L 5-34 H (test code = 353) ALT (SGPT) (BEAKER) 37 U/L 6-55 (test code = 347) EGFR (BEAKER) (test 44 mL/min/1.73 ESTIMA LANNY GFR IS code = 1092) sq m NOT ACCURATE CREATININE CLEARANCE IN PREDICTING GLOMERULAR FILTRATION RATE . ESTIMATED GFR I S NOT APPLICABLE FOR DIALYSIS PATIJOSEFINA TS. [id number] 22:36:00 Test Item Value Reference Range Interpretation Comments PHOSPHORUS (BEAKER) (test code = 4.4 mg/dL 2.3-4.7 604) [id number] 22:36:00 Test Item Value Reference Range Interpretation Comments MAGNESIUM (BEAKER) (test code = 1.3 mg/dL 1.6-2.6 L 627) BLOOD GAS, [id number] 22:31:00 Test Item Value Reference Range Interpretation Comments PH ARTERIAL (BEAKER) (test code 7.29 7.35-7.45 L = 383) PCO2 ARTERIAL (BEAKER) (test 33 mmHg 35-45 L code = 384) PO2 ARTERIAL (BEAKER) (test code 76 mmHg 80-90 L = 385) O2 SATURATION ARTERIAL (BEAKER) 94.5 % 96.0-97.0 L (test code = 386) HCO3 ARTERIAL (BEAKER) (test 16 mmol/L 21-29 L code = 388) BASE EXCESS ARTERIAL (BEAKER) -10.1 mmol/L -2.0-3.0 L (test code = 387) PATIENT TEMPERATURE (BEAKER) 36.4 C (test code = 1818) FIO2 (BEAKER) (test code = 1819) 28.0 % RAD, ABDOMEN/KUB, 1 VIEW [id number] 22:20:00Reason for exam:->ngt placement FINAL REPORT RAD, ABDOMEN/KUB, 1 VIEW AP CLINICAL INDICATION: "ngt placement" COMPARISON: None TECHNIQUE: Single, frontal radiograph of the abdomen. IMPRESSION: Enteric tube terminates in the expected portion of the gastric body.Nonspecific nonobstructive bowel gas pattern.No pneumatosis or obvious pneumoperitoneum.No acute osseous abnormality. Signed: Tony Celaya MDReport Verified Date/Time: 03/17/2017 22:20:51 Reading Location: [facility] B1 [id number] Ortho Consult Reading Room (MANUAL DIFFERENTIAL)2017-03-17 17:58:00 Test Item Value Reference Range Interpretation Comments NEUTROPHILS - REL (DIFF) (BEAKER) 72 % (test code = 1359) LYMPHOCYTES - REL (DIFF) (BEAKER) 10 % (test code = 1360) MONOCYTES - REL (DIFF) (BEAKER) 4 % (test code = 1361) BANDS - REL (DIFF) (BEAKER) (test 14 % 0-10 H code = 1348) NEUTROPHILS - ABS (DIFF) (BEAKER) 11.38 K/ L 1.80-8.00 H (test code = 1365) LYMPHOCYTES - ABS (DIFF) (BEAKER) 1.58 K/ L 1.48-4.50 (test code = 1366) MONOCYTES - ABS (DIFF) (BEAKER) 0.63 K/ L 0.00-1.30 (test code = 1367) BANDS-ABS (DIFF) (BEAKER) (test 2.2 K/ L 0.0-0.8 H code = 1349) TOTAL COUNTED (BEAKER) (test code 100 = 1351) BANDS + SEGMENTED NEUTROPHILS 13.59 (BEAKER) (test code = 1352) WBC MORPHOLOGY (BEAKER) (test code Normal = 487) PLT MORPHOLOGY (BEAKER) (test code Normal = 486) RBC MORPHOLOGY (BEAKER) (test code Normal = 762) CBC W/PLT COUNT & AUTO [id number] 17:57:00 Test Item Value Reference Range Interpretation Comments WHITE BLOOD CELL COUNT (BEAKER) 15.8 K/ L 3.5-10.5 H (test code = 775) RED BLOOD CELL COUNT (BEAKER) 3.93 M/ L 3.93-5.22 (test code = 761) HEMOGLOBIN (BEAKER) (test code = 13.1 GM/DL 11.2-15.7 410) HEMATOCRIT (BEAKER) (test code = 39.5 % 34.1-44.9 411) MEAN CORPUSCULAR VOLUME (BEAKER) 100.5 fL 79.4-94.8 H (test code = 753) MEAN CORPUSCULAR HEMOGLOBIN 33.3 pg 25.6-32.2 H (BEAKER) (test code = 751) MEAN CORPUSCULAR HEMOGLOBIN CONC 33.2 GM/DL 32.2-35.5 (BEAKER) (test code = 752) RED CELL DISTRIBUTION WIDTH 14.6 % 11.7-14.4 H (BEAKER) (test code = 412) PLATELET COUNT (BEAKER) (test 234 K/CU MM 150-450 code = 756) MEAN PLATELET VOLUME (BEAKER) 9.5 fL 9.4-12.3 (test code = 754) NUCLEATED RED BLOOD CELLS 0 /100 WBC 0-0 (BEAKER) (test code = 413) NEUTROPHILS RELATIVE PERCENT 87 % (BEAKER) (test code = 429) LYMPHOCYTES RELATIVE PERCENT 7 % (BEAKER) (test code = 430) MONOCYTES RELATIVE PERCENT 5 % (BEAKER) (test code = 431) EOSINOPHILS RELATIVE PERCENT 0 % (BEAKER) (test code = 432) BASOPHILS RELATIVE PERCENT 0 % (BEAKER) (test code = 437) NEUTROPHILS ABSOLUTE COUNT 13.84 K/ L 1.56-6.13 H (BEAKER) (test code = 670) LYMPHOCYTES ABSOLUTE COUNT 1.16 K/ L 1.18-3.74 L (BEAKER) (test code = 414) MONOCYTES ABSOLUTE COUNT (BEAKER) 0.72 K/ L 0.24-0.36 H (test code = 415) EOSINOPHILS ABSOLUTE COUNT 0.04 K/ L 0.04-0.36 (BEAKER) (test code = 416) BASOPHILS ABSOLUTE COUNT (BEAKER) 0.03 K/ L 0.01-0.08 (test code = 417) IMMATURE GRANULOCYTES-RELATIVE 0 % 0-1 PERCENT (BEAKER) (test code = 2801) [id number] 17:14:00 Test Item Value Reference Range Interpretation Comments PARTIAL THROMBOPLASTIN TIME 21.4 seconds 22.5-36.0 L (BEAKER) (test code = 760) CREATINE KINASE (CK), TOTAL AND [id number] 17:10:00 Test Item Value Reference Range Interpretation Comments CREATINE KINASE TOTAL (BEAKER) 39 U/L 29-200 (test code = 380) CREATINE KINASE-MB (BEAKER) (test 1.2 ng/mL 0.0-6.6 code = 750) CREATINE KINASE-MB INDEX (BEAKER) 3.1 % (test code = 395) CK-MB Reference Range:<6.7 Normal6.7-10.0 Borderline>10.0 AbnormalTROPONIN [id number] 17:10:00 Test Item Value Reference Range Interpretation Comments TROPONIN I (BEAKER) (test code = 397) < ng/mL 0.00-0.03 Troponin I (TnI) levels [...] failure, acidosis, acute neurological disease, and persistent tachyarrhythmia.[id number] 17:09:00 Test Item Value Reference Range Interpretation Comments MAGNESIUM (BEAKER) 1.9 mg/dL 1.6-2.6 Specimen slightly (test code = 627) hemolyzed [id number] 17:09:00 Test Item Value Reference Range Interpretation Comments PHOSPHORUS (BEAKER) 4.1 mg/dL 2.3-4.7 Specimen slightly (test code = 604) hemolyzed BASIC METABOLIC [id number] 17:09:00 Test Item Value Reference Range Interpretation Comments SODIUM (BEAKER) 137 meq/L 136-145 (test code = 381) POTASSIUM (BEAKER) 4.2 meq/L 3.5-5.1 Specimen slightly (test code = 379) hemolyzed CHLORIDE (BEAKER) 109 meq/L 98-107 H (test code = 382) CO2 (BEAKER) (test 19 meq/L 22-29 L code = 355) BLOOD UREA NITROGEN 37 mg/dL 7-21 H (BEAKER) (test code = 354) CREATININE (BEAKER) 1.33 mg/dL 0.57-1.25 H Specimen slightly (test code = 358) hemolyzed GLUCOSE RANDOM 105 mg/dL 70-105 (BEAKER) (test code = 652) CALCIUM (BEAKER) 8.6 mg/dL 8.4-10.2 (test code = 697) EGFR (BEAKER) (test 41 mL/min/1.73 ESTIMA LANNY GFR IS code = 1092) sq m NOT ACCURATE CREATININE CLEARANCE IN PREDICTING GLOMERULAR FILTRATION RATE . ESTIMATED GFR I S NOT APPLICABLE FOR DIALYSIS PATIEN TS. HEPATIC FUNCTION [id number] 17:09:00 Test Item Value Reference Range Interpretation Comments TOTAL PROTEIN (BEAKER) 6.5 gm/dL 6.0-8.3 Speci men slightly (test code = 770) hemolyzed ALBUMIN (BEAKER) (test 3.4 g/dL 3.5-5.0 L Speci men slightly code = 1145) hemolyzed BILIRUBIN TOTAL 0.8 mg/dL 0.2-1.2 Specimen sli ghtly (BEAKER) (test code = hemoly zed 377) BILIRUBIN DIRECT 0.3 mg/dL 0.1-0.5 Specimen sl ightly (BEAKER) (test code = hemoly zed 706) ALKALINE PHOSPHATASE 73 U/L 40-150 (BEAKER) (test code = 346) AST (SGOT) (BEAKER) 16 U/L 5-34 Specimen slightly (test code = 353) hemolyzed ALT (SGPT) (BEAKER) 14 U/L 6-55 Specimen slightly (test code = 347) hemolyzed PROTHROMBIN [id number] 16:48:00 Test Item Value Reference Range Interpretation Comments PROTIME (BEAKER) (test code = 13.9 seconds 11.7-14.7 759) INR (BEAKER) (test code = 370) 1.1 <=5.9 RECOMMENDED COUMADIN/WARFARIN INR THERAPY RANGESSTANDARD DOSE: 2.0 - 3.0 Includes: PROPHYLAXIS forvenous thrombosis, systemic embolization; TREATMENT for venous thrombosis and/or pulmonary embolus.HIGH RISK: Target INR is 2.5-3.5 for patients with mechanical heart valves.PROTHROMBIN [id number] 16:47:00 Test Item Value Reference Range Interpretation Comments PROTIME (BEAKER) (test code = 13.9 seconds 11.7-14.7 759) INR (BEAKER) (test code = 370) 1.1 <=5.9 RECOMMENDED COUMADIN/WARFARIN INR THERAPY RANGESSTANDARD DOSE: 2.0 - 3.0 Includes: PROPHYLAXIS forvenous thrombosis, systemic embolization; TREATMENT for venous thrombosis and/or pulmonary embolus.HIGH RISK: Target INR is 2.5-3.5 for patients with mechanical heart valves.
[2020-01-24] MEDS ORDERED: NA CHLORIDE 0.9% 2,000 ML ONE (13:41)
[2020-01-24 14:10] LABS: Absolute Lymphocytes (CBC) 1.8 K/uL (0.7-4.9); Basophils % 0.4 % (0-1.3); Hematocrit 43.5 % (36.0-45.0); Lymphocytes % 10.3 % (15.3-44.8); MPV 7.8 fL (7.6-11.3); RBC Red Blood Cell Count 4.63 M/uL (3.86-4.86)
[2020-01-24 14:17] LABS: Protime INR 1.02
[2020-01-24 14:33] LABS: ALT/SGPT 14 U/L (12-78); AST/SGOT 11 U/L (15-37); Albumin 3.4 g/dL (3.4-5.0); Alkaline Phosphatase 74 U/L (45-117); BUN Blood Urea Nitrogen 17 mg/dL (7-18); Bicarbonate 28 mmol/L (21-32); Bilirubin Direct 0.1 mg/dL (0-0.2); Bilirubin Total 0.5 mg/dL (0.2-1.0); Glucose Level 143 mg/dL (74-106); Potassium 3.6 mmol/L (3.5-5.1); Protein, Total 6.8 g/dL (6.4-8.2); Sodium Level 145 mmol/L (136-145)
[2020-01-24 15:46] LABS: Blood Morphology Comment NOT SEEN (NOT SEEN); Platelet Estimate ADEQ
--- NOTE | 2020-01-24 16:40 | ER ---
Nurse's Notes [facility] Name: Norma Boggs Age: 59 yrs Sex: Female : 1960 Arrival Date: 01/24/2020 Time: 13:15 Bed 13 Private MD: Diagnosis: Overdose, Suicidal Ideation/Attempt Presentation: 01/23 13:18 Chief complaint: EMS states: Family called EMS for possible suicide attempt, pt hb confused, drowsy, told family yesterday she was tired and wanted to end it all. EMS initiated PIV access but pt pulled it out, became combative during attempts to arouse to tactile stimuli. Coronavirus screen: At this time, the client does not indicate any symptoms associated with coronavirus-19. Ebola Screen: No symptoms or risks identified at this time. Initial Sepsis Screen:. 13:18 Method Of Arrival: EMS: [facility] hb 13:18 Acuity: ABDULLAHI 2 hb 19:10 Initial Sepsis Screen: Does the patient meet any 2 criteria? No. Patient's initial wh sepsis screen is negative. Does the patient have a suspected source of infection? No. Patient's initial sepsis screen is negative. Risk Assessment: Do you want to hurt yourself or someone else? Patient reports desire/thoughts of hurting themselves or someone else. Provider notified. Onset of symptoms is unknown. Triage Assessment: 13:20 General: Appears in no apparent distress. Behavior is flat. Pain: Unable to use pain hb scale. FLACC scale score is 0 out of 10. EENT: No signs and/or symptoms were reported regarding the EENT system. Neuro: Level of Consciousness is obtunded. Cardiovascular: Capillary refill < 3 seconds Patient's skin is warm and dry. Respiratory: Respiratory effort is even, unlabored, Respiratory pattern is regular, symmetrical. GI: No signs and/or symptoms were reported involving the gastrointestinal system. : No signs and/or symptoms were reported regarding the genitourinary system. Derm: Skin is pink, warm \T\ dry. Musculoskeletal: No signs and/or symptoms reported regarding the musculoskeletal system. Historical: - Allergies: 14:38 No Known Allergies; iw - Home Meds: 14:38 amlodipine 5 mg tab once daily [Active]; gabapentin 600 mg oral tab twice a day iw [Active]; Protonix 40 mg oral TbEC once daily [Active]; tizanidine 4 mg oral cap twice a day [Active]; duloxetine 30 mg oral cpDR once daily [Active]; lisinopril-hydrochlorothiazide 20-12.5 mg oral tab 1 tab once daily [Active]; levothyroxine 50 mcg tab 1 tab once daily [Active]; - PMHx: 13:39 Back pain; BOWEL PERFORATION; carpal tunnel; Depression; Diverticulitis; GI Bleed; hb Hypertension; Thyroid problem; - PSHx: 13:39 right rotator cuff repair; hb - Immunization history:: Adult Immunizations up to date. - Social history:: Smoking status: unknown. Screenin:30 Abuse screen: no s/s abuse. Nutritional screening: No deficits noted. Tuberculosis hb screening: No symptoms or risk factors identified. Fall Risk Total Gabriel Fall Scale indicates High Risk Score (45 or more points). Fall prevention measures have been instituted. Side Rails Up X 2 Frequent Obs/Assessments Occuring As available patient and family educated on Fall Prevention Program and Strategies. Assessment: 13:30 General: See triage assessment. hb 13:33 Reassessment: Sitter at bedside. See paper chart for sitter observation log. hb 14:23 Reassessment: spoke with Bandar at [facility] (Case #[id number]) recommends to watch iw for lethargy, bradycardia, hypotension, confusion, constricted pupils, resp depression, 1st degree heart block, get tox workup, EKG, CMP, administer acetylcysteine if tylenol level is positive. 14:38 Reassessment: belongings list complete, verified by Tim site supervising technical operator, sent to [facility], iw holding meds at nurse's station at this time. 15:30 Reassessment: Patient appears in no apparent distress at this time. No changes from hb previously documented assessment. Sitter remains at bedside. 16:30 Reassessment: Patient appears in no apparent distress at this time. No changes from hb previously documented assessment. 17:30 Reassessment: Patient appears in no apparent distress at this time. No changes from hb previously documented assessment. 18:24 Reassessment: .medications inventoried and sent to [facility],with belongings list. iw 18:38 Reassessment: Patient appears in no apparent distress at this time. No changes from hb previously documented assessment. 19:10 General: Behavior is drowsy. wh 19:30 Pain: Denies pain. Neuro: Level of Consciousness is obeys commands, lethargic, Oriented wh to person, place, time, situation. Cardiovascular: Capillary refill < 3 seconds. Respiratory: Airway is patent Respiratory effort is even, unlabored, Respiratory pattern is regular, symmetrical. GI: Abdomen is flat, non-distended. : No signs and/or symptoms were reported regarding the genitourinary system. EENT: No signs and/or symptoms were reported regarding the EENT system. Derm: Skin is intact, is healthy with good turgor. Musculoskeletal: Circulation, motion, and sensation intact. 21:00 Reassessment: Patient and/or family updated on plan of care and expected duration. Pain wh level reassessed. Patient is alert, oriented x 3, equal unlabored respirations, skin warm/dry/pink. Pt admitted to ER hold. Psych: 14:21 Subjective:. Objective: Patient is cooperative, Speech is slurred. Interventions: iw Removed personal items and placed in bag. Patient placed in hospital gown. Searched person for dangerous items. Belonging list filled out. Suicide Risk Assessment: Sad Person Scale: Sex of patient: Female: Score 0 points. Age of patient: Score 0 point if patient falls outside of specified age parameters. Depression: Score 1 point if signs of depression are present. Substance Abuse: Score 1 point if patient abuses alcohol or drugs. Rational Thinking: Score 1 point if patient is lacking rational thinking. Safety Checks: Personal items have been removed. Door is open. No visitors are present at this time. Patient uses. 19:30 Commitment: Patient will be a voluntary commitment. wh Overdose: 14:19 Patient took tizanidine 4 mg tab approx 20 tabs, taken at approx 5 pm yesterday iw 01-23-20. Overdose occurred more than 10 hours ago. Vital Signs: 13:18 BP 88 / 65; Pulse 78; Resp 14; Temp 97.2; Pulse Ox 83% on R/A; hb 14:26 BP 142 / 79; Pulse 90; Resp 18 S; Temp 98.3; Pulse Ox 100% on 2 lpm NC; Weight 68.04 iw kg; Height 5 ft. 5 in. (165.10 cm); 14:33 BP 114 / 75; Pulse 89; Resp 18; Pulse Ox 99% on 2 lpm NC; dh3 16:11 BP 129 / 85; Pulse 94; Resp 22; Pulse Ox 99% on 2 lpm NC; hb 17:43 BP 97 / 87; Pulse 93; Resp 17; Pulse Ox 98% on 2 lpm NC; hb 18:40 BP 132 / 80; Pulse 84; Resp 21; Pulse Ox 99% on 2 lpm NC; hb 20:51 BP 110 / 70 LA; Pulse 82; Resp 19 S; Pulse Ox 100% on 2 lpm NC; wh 01/24 07:33 BP 112 / 62; Pulse 75; Resp 19; Pulse Ox 95% on R/A; dh3 07:40 Temp 98.6(O); Pulse Ox 98% on 2 lpm NC; dh3 01/23 14:26 Body Mass Index 24.96 (68.04 kg, 165.10 cm) iw ED Course: 01/23 13:15 Patient arrived in ED. hb 13:24 Triage completed. hb 13:28 Arm band placed on. hb 13:30 Patient has correct armband on for positive identification. Placed in gown. Bed in low hb position. Call light in reach. Side rails up X 1. golf course assistant on. Pulse ox on. NIBP on. 13:30 Inserted saline lock: 20 gauge in right antecubital area, using aseptic technique. hb ,using aseptic technique. by TIM Blood collected. 13:35 Marco A Bright MD is Attending Physician. kdr 13:37 Monique Davis, RN is Primary Nurse. hb 15:00 Straight cath inserted, using sterile technique, 16 Fr. Specimen obtained. Returned iw santiago urine. Patient tolerated well. 16:37 Moe Tamez DO is Hospitalizing Provider. kdr 21:00 No provider procedures requiring assistance completed. Patient admitted, IV remains in place. 01/24 07:28 Inserted saline lock: 20 gauge in left hand, using aseptic technique. dh3 07:28 Second set of blood cultures drawn by me. dh3 Administered Medications: No medications were administered Outcome: 01/23 16:39 Decision to Hospitalize by Provider. kdr 21:00 Admitted to ER Hold. Please see [facility] for further documentation. 21:00 Condition: stable 21:00 Instructed on the need for admit. 01/24 08:11 Patient left the ED. aa5 Signatures: Marco A Bright MD MD kdr Williams, Irene, RN RN Sheila Min RN RN aa5 Monique Davis RN RN Layla [facility] Gemini Vizcaino Corrections: (The following items were deleted from the chart) 01/23 13:25 13:18 Chief complaint: EMS states: Family called EMS for possible suicide attempt, pt hb confused, drowsy, told family yesterday she was tired and wanted to end it all. EMS initiated PIV access but put pulled it out, became combative during attempts to arouse to tactile stimuli. VSS. hb 13:28 13:18 Chief complaint: EMS states: Family called EMS for possible suicide attempt, pt hb confused, drowsy, told family yesterday she was tired and wanted to end it all. EMS initiated PIV access but pt pulled it out, became combative during attempts to arouse to tactile stimuli. VSS. hb 13:28 13:18 BP 88 / 65; Pulse 78bpm; Resp 14bpm; Temp 97.2F; hb hb 14:27 14:26 BP 142 / 79; Pulse 90bpm; Resp 18bpm; Spontaneous; Pulse Ox 100% 2 lpm Nasal iw Cannula; iw 14:38 13:39 Home Meds: amlodipine 5 mg tab; hb iw 14:38 13:39 Home Meds: gabapentin Oral; hb iw 14:38 13:39 Home Meds: lisinopril Oral; hb iw 14:38 13:39 Home Meds: Lyrica Oral; hb iw 14:38 13:39 Home Meds: Protonix Oral; hb iw 14:38 13:39 Home Meds: Xanax 1 mg Oral tab 1 tab; hb iw 14:38 13:39 Home Meds: quetiapine oral oral; hb iw 14:38 13:39 Home Meds: tizanidine oral oral; hb iw 14:38 13:39 Home Meds: citalopram oral; hb iw 14:38 13:39 Home Meds: duloxetine oral oral; hb iw 14:38 14:26 Allergies: No Known Allergies; iw iw 15:32 15:30 Reassessment: hb hb
--- NOTE | 2020-01-24 16:40 | EDPHYS ---
Physician Documentation [facility] Name: Norma Boggs Age: 59 yrs Sex: Female : 1960 Arrival Date: 01/24/2020 Time: 13:15 Bed 13 Private MD: ED Physician Marco A Bright HPI: 01/24 15:18 This 59 yrs old Female presents to ER via EMS with complaints of Possible kdr Overdose. 15:18 The patient presents to the emergency department with a possible overdose, The patient kdr took about 30 tabs of tizanidine yesterday at about 5:00 PM - currently very drowsy . Context: Method: the patient has a confirmed or suspected ingestion, tisanidine. Associated signs and symptoms: Pertinent positives: decreased level of consciousness. Severity of symptoms: At their worst the symptoms were mild in the emergency department the symptoms are unchanged. The patient has not experienced similar symptoms in the past. It is unknown whether or not the patient has recently seen a physician. Historical: - Allergies: 01/23 14:38 No Known Allergies; iw - Home Meds: 14:38 amlodipine 5 mg tab once daily [Active]; gabapentin 600 mg oral tab twice a day iw [Active]; Protonix 40 mg oral TbEC once daily [Active]; tizanidine 4 mg oral cap twice a day [Active]; duloxetine 30 mg oral cpDR once daily [Active]; lisinopril-hydrochlorothiazide 20-12.5 mg oral tab 1 tab once daily [Active]; levothyroxine 50 mcg tab 1 tab once daily [Active]; - PMHx: 13:39 Back pain; BOWEL PERFORATION; carpal tunnel; Depression; Diverticulitis; GI Bleed; hb Hypertension; Thyroid problem; - PSHx: 13:39 right rotator cuff repair; hb - Immunization history:: Adult Immunizations up to date. - Social history:: Smoking status: unknown. ROS: 01/24 15:18 Constitutional: Negative for fever, chills, and weight loss, Eyes: Negative for injury, kdr pain, redness, and discharge, ENT: Negative for injury, pain, and discharge, Neck: Negative for injury, pain, and swelling, Cardiovascular: Negative for chest pain, palpitations, and edema, Respiratory: Negative for shortness of breath, cough, wheezing, and pleuritic chest pain, Abdomen/GI: Negative for abdominal pain, nausea, vomiting, diarrhea, and constipation, Back: Negative for injury and pain, : Negative for injury, bleeding, discharge, and swelling, MS/Extremity: Negative for injury and deformity, Skin: Negative for injury, rash, and discoloration, Allergy/Immunology: Negative for hives, rash, and allergies, Endocrine: Negative for neck swelling, polydipsia, polyuria, polyphagia, and marked weight changes, Hematologic/Lymphatic: Negative for swollen nodes, abnormal bleeding, and unusual bruising. Neuro: Positive for altered mental status, weakness, Negative for headache, loss of consciousness. Psych: Positive for depression, suicide gesture. Exam: 07:37 ECG was reviewed by the Attending Physician. kdr 15:18 Constitutional: This is a well developed, well nourished patient who is awake, alert, kdr and isonolent bu tin mild distress distress. Head/Face: Normocephalic, atraumatic. Eyes: Pupils equal round and reactive to light, extra-ocular motions intact. Lids and lashes normal. Conjunctiva and sclera are non-icteric and not injected. Cornea within normal limits. Periorbital areas with no swelling, redness, or edema. Neck: Trachea midline, no thyromegaly or masses palpated, and no cervical lymphadenopathy. Supple, full range of motion without nuchal rigidity, or vertebral point tenderness. No Meningismus. Chest/axilla: Normal chest wall appearance and motion. Nontender with no deformity. No lesions are appreciated. Cardiovascular: Regular rate and rhythm with a normal S1 and S2. No gallops, murmurs, or rubs. Normal PMI, no JVD. No pulse deficits. Respiratory: Lungs have equal breath sounds bilaterally, clear to auscultation and percussion. No rales, rhonchi or wheezes noted. No increased work of breathing, no retractions or nasal flaring. Abdomen/GI: Soft, non-tender, with normal bowel sounds. No distension or tympany. No guarding or rebound. No evidence of tenderness throughout. Back: No spinal tenderness. No costovertebral tenderness. Full range of motion. Skin: Warm, dry with normal turgor. Normal color with no rashes, no lesions, and no evidence of cellulitis. MS/ Extremity: Pulses equal, no cyanosis. Neurovascular intact. Full, normal range of motion. 15:18 Neuro: Orientation: to person, Mentation: slow to respond, confused. 15:18 Psych: Behavior/mood is depressed, inappropriate for age, Affect is flat, Oriented to person. Vital Signs: 01/23 13:18 BP 88 / 65; Pulse 78; Resp 14; Temp 97.2; Pulse Ox 83% on R/A; hb 14:26 BP 142 / 79; Pulse 90; Resp 18 S; Temp 98.3; Pulse Ox 100% on 2 lpm NC; Weight 68.04 iw kg; Height 5 ft. 5 in. (165.10 cm); 14:33 BP 114 / 75; Pulse 89; Resp 18; Pulse Ox 99% on 2 lpm NC; dh3 16:11 BP 129 / 85; Pulse 94; Resp 22; Pulse Ox 99% on 2 lpm NC; hb 17:43 BP 97 / 87; Pulse 93; Resp 17; Pulse Ox 98% on 2 lpm NC; hb 18:40 BP 132 / 80; Pulse 84; Resp 21; Pulse Ox 99% on 2 lpm NC; hb 20:51 BP 110 / 70 LA; Pulse 82; Resp 19 S; Pulse Ox 100% on 2 lpm NC; wh 01/24 07:33 BP 112 / 62; Pulse 75; Resp 19; Pulse Ox 95% on R/A; dh3 07:40 Temp 98.6(O); Pulse Ox 98% on 2 lpm NC; dh3 01/23 14:26 Body Mass Index 24.96 (68.04 kg, 165.10 cm) iw MDM: 01/23 16:39 Patient medically screened. kdr 01/24 19:20 Data reviewed: vital signs, nurses notes, lab test result(s), radiologic studies. kdr Counseling: I had a detailed discussion with the patient and/or guardian regarding: the historical points, exam findings, and any diagnostic results supporting the discharge/admit diagnosis, lab results, radiology results, the need for outpatient follow up. 01/23 13:30 Order name: Acetaminophen 01/23 13:30 Order name: Basic Metabolic Panel 01/23 13:30 Order name: CBC with Diff 01/23 13:30 Order name: ETOH Level 01/23 13:30 Order name: Hepatic Function 01/23 13:30 Order name: PT-INR 01/23 13:30 Order name: Ptt, Activated 01/23 13:30 Order name: Salicylate 01/23 13:30 Order name: Urine Drug Screen 01/23 15:44 Order name: Manual Differential EDAK 01/23 17:01 Order name: Urine Dipstick--Ancillary (enter results) em1 01/24 04:58 Order name: CBC with Automated Diff EDAK 01/24 05:05 Order name: Basic Metabolic Panel EDAK 01/23 13:30 Order name: EKG; Complete Time: 13:32 01/23 13:30 Order name: EKG - Nurse/Tech; Complete Time: 15:25 01/23 13:30 Order name: IV Saline Lock; Complete Time: 15:25 01/23 13:30 Order name: Labs collected and sent; Complete Time: 15:25 01/23 13:30 Order name: Urine Dipstick-Ancillary (obtain specimen); Complete Time: 15:25 01/24 05:05 Order name: T4 Free EDAK 01/24 05:05 Order name: Magnesium EDAK 01/24 05:05 Order name: Thyroid Stimulating Hormone EDAK 01/24 07:06 Order name: Manual Differential EDAK 01/24 07:56 Order name: Lactate EDMS EC:37 Rate is 87 beats/min. Rhythm is regular, Normal Sinus Rhythm with No ectopy. QRS Porter kdr is Normal. GA interval is normal. QRS interval is normal. QT interval is normal. Clinical impression: NSR w/ Non-specific ST/T Changes. Administered Medications: No medications were administered Disposition: 01/24/20 16:39 Hospitalization ordered by Moe Tamez for Observation. Preliminary diagnosis is Overdose, Suicidal Ideation/Attempt. - Bed requested for [facility] ER HOLD. - Status is Observation. aa5 - Condition is Fair. - Problem is new. - Symptoms have improved. Signatures: Dispatcher [employer] EDMS Marco A Bright MD MD kdr Justine Ludwig RN RN Sheila Min RN RN aa5 Suzy Henderson RN RN Monique Davis RN RN Corrections: (The following items were deleted from the chart) 01/23 14:38 13:39 Home Meds: amlodipine 5 mg tab; hb iw 14:38 13:39 Home Meds: gabapentin Oral; hb iw 14:38 13:39 Home Meds: lisinopril Oral; hb iw 14:38 13:39 Home Meds: Lyrica Oral; hb iw 14:38 13:39 Home Meds: Protonix Oral; hb iw 14:38 13:39 Home Meds: Xanax 1 mg Oral tab 1 tab; hb iw 14:38 13:39 Home Meds: quetiapine oral oral; hb iw 14:38 13:39 Home Meds: tizanidine oral oral; hb iw 14:38 13:39 Home Meds: citalopram oral; hb iw 14:38 13:39 Home Meds: duloxetine oral oral; hb iw 14:38 14:26 Allergies: No Known Allergies; iw iw 15:44 14:13 CBC Smear Scan ordered. EDMS EDMS 20:50 16:39 Hospitalization Ordered by Moe Tamez DO for Observation. Preliminary cg diagnosis is Overdose, Suicidal Ideation/Attempt. Bed requested for Telemetry/MedSurg (observation). Status is Observation. Condition is Fair. Problem is new. Symptoms have improved. kdr 01/24 08:11 01/23 20:50 01/24/2020 16:39 Hospitalization Ordered by Moe Tamez DO for aa5 Observation. Preliminary diagnosis is Overdose, Suicidal Ideation/Attempt. Bed requested for [facility] ER HOLD. Status is Observation. Condition is Fair. Problem is new. Symptoms have improved. cg
[2020-01-24 17:11] LABS: Urine Blood NEGATIVE (NEG); Urine Glucose NEGATIVE (NEG); Urine Protein NEGATIVE (NEG); Urine Specific Gravity 1.015 (1.005-1.030); Urine pH 5.5 (5.0-7.0)
[2020-01-24 17:14] LABS: Barbiturates NEGATIVE (NEGATIVE); Benzodiazepines NEGATIVE (NEGATIVE); Cocaine POSITIVE (NEGATIVE); METHAMPHETAM POSITIVE (NEGATIVE); Methadone NEGATIVE (NEGATIVE); Opiates NEGATIVE (NEGATIVE); Phencyclidine NEGATIVE (NEGATIVE); THC Cannibis NEGATIVE (NEGATIVE)
--- NOTE | 2020-01-24 17:24 | P.HP ---
Certification for Inpatient Patient admitted to: Observation With expected LOS: <2 Midnights Patient will require the following post-hospital care: Other (Inpatient psych) Practitioner: I am a practitioner with admitting privileges, knowledge of patient current condition, hospital course, and medical plan of care. Services: Services provided to patient in accordance with Admission requirements found in Title 42 Section 412.3 of the Code of Federal Regulations Patient History Date of Service: 01/24/20 Primary Care Provider: Unknown Reason for admission: Suicide attempt History of Present Illness: 59-year-old female presented to the emergency room with suicide attempt with overdose of Zanaflex. Patient was brought in by EMS. Information came from the ER physician and patient. Patient has been under a great deal of stress. She recently lost her mother to COVID 19 in November. ER reports that the patient apparently took 20 tabs of tizanidine 4 mg yesterday. Is unclear when she took the medication. There is also reports that apparently family said that she was trying to kill herself. The patient admitted taking the medication. When she was initially evaluated by EMS patient was combative. Blood pressure was slightly low. In the ER patient was further evaluated. Vital signs stable. White count 17.7. Hemoglobin 14.5. Sodium 145, potassium 3.6. BN of 17, creatinine 1.23 with a GFR 45. Glucose 143. Patient appears stable at this time. Patient with 1 on 1 care due to suicide attempt. Patient admitted for further evaluation and treatment. When I saw the patient in the ER, she was still slightly groggy but able to converse. She does admit taking the overdose of medication. She has been under a great deal of stress. She did report that she looked up on the Internet about Tizandine side effects. She want to make sure that it would not lead to . She did report that she did speak to family about wanting to hurt herself. She understands that she does not want do this anymore. She is depressed. She is willing to get help. Patient with multiple medical problems including COPD, tobacco abuse, alcohol abuse, and chronic pain. Allergies No Known Allergies Allergy (Verified 10/19/12 18:20) Home medications list reviewed: Yes Home Medications: Acetaminophen [Tylenol Extra Strength] 1 tab PO BID PRN 04/02/17 Alprazolam [Xanax] 1 tab PO DAILY 04/02/17 Amlodipine [Norvasc*] 1 tab PO DAILY 04/02/17 Gabapentin 1 tab PO QID 04/02/17 Hydrocodone Bit/Acetaminophen [[place] 10-325 Tablet] 1 tab PO QID 04/02/17 Lisinopril [Zestril] 1 tab PO DAILY 04/02/17 Sulfamethoxazole/Trimethoprim [Bactrim 400-80 mg Tablet] 1 each PO DAILY #7 tablet 04/02/17 Tizanidine HCl [Zanaflex] 1 tab PO BID 04/02/17 - Past Medical/Surgical History Diabetic: No -: Chronic pain -: Restless leg syndrome -: Carpal tunnel syndrome -: Depression with anxiety -: Hypertension -: COPD -: abdominal sx -: broken rt foot sx Psychosocial/ Personal History: Patient lives at home - Family History Mother -: Lung disease Father -: Hypertension, Stroke - Social History Smoking Status: Heavy Tobacco smoker (>10 cigarettes/day) Smoking therapy provided: No Patient receptive to therapy: No Alcohol use: Yes CD- Drugs: No Caffeine use: Yes Place of Residence: Home Review of Systems General: As per HPI Eyes: Unremarkable ENT: Unremarkable Respiratory: Unremarkable Cardiovascular: Unremarkable Gastrointestinal: Unremarkable Genitourinary: Unremarkable Musculoskeletal: Unremarkable Integumentary: Unremarkable Neurological: As per HPI Lymphatics: Unremarkable Physical Examination - Physical Exam General: Alert, In no apparent distress, Oriented x3, Cooperative, Other (Patient is somewhat groggy but able to cooperate. She was able to converse with me.) HEENT: Atraumatic, Normocephalic, Other (Dry mucous membranes) Neck: Supple Respiratory: Clear to auscultation bilaterally, Normal air movement Cardiovascular: Normal pulses, Regular rate/rhythm Gastrointestinal: Normal bowel sounds, Soft and benign, Non-distended, No tenderness, No masses, No rebound, No guarding Musculoskeletal: No erythema, No tenderness, No warmth Integumentary: No erythema, No warmth, No cyanosis, Other (Dry skin) Neurological: Normal speech, Normal strength at 5/5 x4 extr, Normal tone, Abnormal affect (Patient appears depressed) - Studies Laboratory Data (last 24 hrs) 01/24/20 13:45: PT 12.0, INR 1.02, APTT 24.7 09/17/20 13:45: WBC 17.7 H, Hgb 14.5, Hct 43.5, Plt Count 278 01/24/20 13:45: Sodium 145, Potassium 3.6, BUN 17, Creatinine 1.23, Glucose 143 H, Total Bilirubin 0.5, AST 11 L, ALT 14, Alkaline Phosphatase 74 Assessment and Plan - Plan Impression: Suicide attempt with Tizandine overdose with history of depression/anxiety with increased stress factors at home Mild dehydration COPD Hypertension Chronic pain Tobacco abuse Alcohol abuse Plan: Suicide attempt with Tizandine overdose with history of depression/anxiety with increased stress factors at home: Patient will be admitted for further evaluation and treat. Will keep the patient in ICU with 1 on 1 care. Suicide precaution in place. Will provide IV fluids. Will check urine drug screen. Will monitor electrolytes. Will have nurses contact poison control on recommendations for Tizanidine overdose. Will continue to monitor closely. Patient willing to get help for her depression. Patient no longer suicidal as reported by patient. We need to have psychiatry evaluate patient. Will try to consult Psychiatry. If no psychiatry available will have social work contact [facility] for evaluation for possible inpatient psych. Anticipate medical clearance within the next 24 hr. Mild dehydration: Will provide IV fluids. Will monitor electrolytes closely. COPD: Will provide medication. Hypertension: Need to obtain home medication. Blood pressure stable this time. Chronic pain: Discontinue all pain medication and muscle relaxer. Tobacco abuse: Will address tobacco cessation. Alcohol abuse: Will address alcohol cessation. Discharge Plan: Psychiatry Plan to discharge in: 48 Hours - Advance Directives Does patient have a Living Will: No Does patient have a Durable POA for Healthcare: No - Code Status/Comfort Care Code Status Assessed: Yes (Patient is full code) Time Spent Managing Pts Care (In Minutes): 55
[2020-01-24] MEDS ORDERED: ONDANSETRON 4 MG/2 ML VIAL IV PRN (21:22)
[2020-01-24] MEDS ORDERED: ALBUTEROL INHALER 60 PUFF/8 GM IH PRN (21:22)
[2020-01-24] MEDS ORDERED: ACETAMINOPHEN 500 MG TAB PO PRN (21:22)
[2020-01-24] MEDS ORDERED: NA CHLORIDE 0.9% 1,000 ML IV SCH (21:22)
[2020-01-24] MEDS: DULERA 100/5 (MOMETASONE/FORMOTEROL) INHALER IH SCH (21:22)
[2020-01-24] MEDS ORDERED: NA CHLORIDE 0.9% 1,000 ML ONE (22:25)
[2020-01-25 04:40] LABS: Basophils % 0.1 % (0-1.3); Hematocrit 37.8 % (36.0-45.0); Lymphocytes % 6.8 % (15.3-44.8); MPV 8.1 fL (7.6-11.3)
[2020-01-25 05:04] LABS: Magnesium 2.2 mg/dL (1.8-2.4); Potassium 4.1 mmol/L (3.5-5.1); Thyroid Stimulating Hormone 1.43 uIU/mL (0.360-3.740)
[2020-01-25 07:05] LABS: Blood Morphology Comment NOT SEEN (NOT SEEN); Platelet Estimate ADEQ
[2020-01-25] MEDS: ENOXAPARIN 40 MG/0.4 ML SQ SCH (09:35)
--- NOTE | 2020-01-25 09:37 | RAD REPORT ---
EXAM DESCRIPTION: RAD - Chest Single View - 01/25/2020 6:20 am CLINICAL HISTORY: Leukocytosis COMPARISON: Portable August 2018 TECHNIQUE: AP portable chest image was obtained 01/25/2020 6:20 am . FINDINGS: Lung volumes are low. Patchy opacification is present in the right lung base with intersti tial stranding present throughout both lung white. No vascular engorgement. Heart size within normal limits. Trachea is midline. No measurable pleural effusion and no pneumothorax. No acute bony abnorm ality seen. No acute aortic findings suspected. IMPRESSION: Patchy right base opacification suspicious for early pneumonia. Lung base atelectasis present with overall increased interstitial pattern due to low lung volumes.
--- NOTE | 2020-01-25 09:38 | P.PN ---
Subjective Date of Service: 01/25/20 Primary Care Provider: Unknown Chief Complaint: Suicide attempt Subjective: Improving (She is no longer suicidal. Patient appears back to baseline mentation) Physical Examination - Vital Signs Temperature: 98.8 F Blood Pressure: 109/62 Pulse: 87 Respirations: 20 Pulse Ox (%): 96 - Physical Exam General: Alert, In no apparent distress, Oriented x3, Cooperative HEENT: Atraumatic Neck: Supple Respiratory: Clear to auscultation bilaterally, Normal air movement Cardiovascular: Normal pulses, Regular rate/rhythm Gastrointestinal: Normal bowel sounds, Soft and benign, Non-distended, No masses, No rebound, No guarding Neurological: Normal speech, Normal strength at 5/5 x4 extr, Normal tone, Normal affect Other Physical/Emotional Findings: She is no longer suicidal. - Studies Laboratory Data (last 24 hrs) 01/25/20 04:11: Sodium 140, Potassium 4.1, BUN 21 H, Creatinine 0.85, Glucose 97, Magnesium 2.2 01/25/20 04:11: WBC 29.8 H* D, Hgb 12.9, Hct 37.8, Plt Count 229 01/24/20 13:45: PT 12.0, INR 1.02, APTT 24.7 01/24/20 13:45: WBC 17.7 H, Hgb 14.5, Hct 43.5, Plt Count 278 01/24/20 13:45: Sodium 145, Potassium 3.6, BUN 17, Creatinine 1.23, Glucose 143 H, Total Bilirubin 0.5, AST 11 L, ALT 14, Alkaline Phosphatase 74 Medications List Reviewed: Yes Assessment & Plan Discharge Plan: Home Plan to discharge in: 24 Hours Physician Review Additional Text: Impression: Suicide attempt with Tizandine overdose with history of depression/anxiety with increased stress factors at home Mild dehydration COPD Hypertension Chronic pain Tobacco abuse Alcohol abuse Cocaine/amphetamine abuse Leukocytosis, suspect early pneumonia to the right lower lobe likely aspiration Plan: Suicide attempt with Tizandine overdose with history of depression/anxiety with increased stress factors at home: Spoke to patient. She appears back to baseline line. She is no longer suicidal. Will have PSYC assess her. Spoke to PSYC, he will set up facetime conference at 1 pm. Patient had elevated WBC. Will check for infection. Will continue to monitor. Encourage oral intake. Address her cocaine habits and need for cessation. Mild dehydration: Will provide IV fluids. Will monitor electrolytes closely. COPD: Will provide medication. Hypertension: Need to obtain home medication. Blood pressure stable this time. No need for medication Chronic pain: Discontinue all pain medication and muscle relaxer. Tobacco abuse: Will address tobacco cessation. Alcohol abuse: Will address alcohol cessation. Cocaine/amphetamine abuse: Cessation addressed. Leukocytosis early pneumonia to the right lower lung noted. Likely aspiration: Chest x-ray reviewed. Pro calcitonin elevated. Suspect possible aspiration pneumonia. Will start IV Zosyn. Time Spent Managing Pts Care (In Minutes): 55
[2020-01-25] MEDS: NA CHLORIDE 0.9% 1,000 ML IV SCH ×2 (09:42→20:09)
[2020-01-25] MEDS ORDERED: ENOXAPARIN 40 MG/0.4 ML SQ ONE (09:46)
[2020-01-25] MEDS: PIPER/TAZO/NS 3.375gm 3.375 GM/100 ML BAG IVPB SCH ×2 (10:52→16:24)
[2020-01-25] MEDS: DULERA 100/5 (MOMETASONE/FORMOTEROL) INHALER IH SCH ×2 (10:54→20:10)
[2020-01-25] MEDS ORDERED: PIPER/TAZO/NS 3.375gm 3.375 GM/100 ML BAG ONE ×2 (11:02→16:31)
[2020-01-25 19:46] LABS: Urine Bacteria 20-50 /HPF (<20); Urine Culture Reflex Order NOT NEEDED; Urine RBC <5 /HPF (NONE SEEN)
[2020-01-25] MEDS ORDERED: NA CHLORIDE 0.9% 1,000 ML ONE (20:20)
[2020-01-26] MEDS: PIPER/TAZO/NS 3.375gm 3.375 GM/100 ML BAG IVPB SCH ×3 (00:14→16:00)
[2020-01-26] MEDS ORDERED: PIPER/TAZO/NS 3.375gm 3.375 GM/100 ML BAG ONE ×4 (00:19→20:50)
[2020-01-26] MEDS: NA CHLORIDE 0.9% 1,000 ML IV SCH (05:44)
[2020-01-26] MEDS ORDERED: NA CHLORIDE 0.9% 1,000 ML ONE (05:50)
[2020-01-26 06:29] LABS: Basophils % 0.3 % (0-1.3); Hematocrit 35.4 % (36.0-45.0); Lymphocytes % 10.2 % (15.3-44.8); MPV 7.8 fL (7.6-11.3); RBC Red Blood Cell Count 3.86 M/uL (3.86-4.86)
[2020-01-26 06:47] LABS: Potassium 3.9 mmol/L (3.5-5.1)
[2020-01-26] MEDS ORDERED: POTASSIUM CL SA 10 MEQ TAB PO ONE ×2 (06:49→07:06)
[2020-01-26] MEDS ORDERED: ENOXAPARIN 40 MG/0.4 ML SQ ONE (07:07)
[2020-01-26] MEDS: ENOXAPARIN 40 MG/0.4 ML SQ SCH (08:00)
[2020-01-26] MEDS: DULERA 100/5 (MOMETASONE/FORMOTEROL) INHALER IH SCH ×2 (08:02→20:39)
--- NOTE | 2020-01-26 08:21 | RAD REPORT ---
EXAM DESCRIPTION: Markell Shelley And Lat (2 Views)01/26/2020 6:41 am CLINICAL HISTORY: Cough COMPARISON: January 24 FINDINGS: Moderate right and mild left basilar opacities mildly improved. The heart is normal size Possible air-fluid level within the lung base seen on the lateral view. It is not seen on the frontal view and is uncertain the real finding. This can be followed on subsequent chest x-ray IMPRESSION: Moderate right and mild left basilar opacities consistent pneumonia mildly improved
--- NOTE | 2020-01-26 10:03 | P.PN ---
Subjective Date of Service: 01/26/20 Primary Care Provider: Unknown Chief Complaint: Suicide attempt Subjective: Improving Physical Examination - Vital Signs Temperature: 98.5 F Blood Pressure: 117/67 Pulse: 77 Respirations: 28 Pulse Ox (%): 97 - Physical Exam General: Alert, In no apparent distress, Oriented x3, Cooperative HEENT: Atraumatic Neck: Supple Respiratory: Other (Air movement improved. Slight crackles to the right base) Cardiovascular: Normal pulses, Regular rate/rhythm Gastrointestinal: Normal bowel sounds Neurological: Normal speech, Normal strength at 5/5 x4 extr, Normal tone, Normal affect Other Physical/Emotional Findings: She is no longer suicidal. - Studies Medications List Reviewed: Yes Assessment & Plan Discharge Plan: Home Plan to discharge in: 24 Hours Physician Review Additional Text: Impression: Suicide attempt with Tizandine overdose with history of depression/anxiety with increased stress factors at home Mild dehydration COPD Hypertension Chronic pain Tobacco abuse Alcohol abuse Cocaine/amphetamine abuse Leukocytosis, suspect early pneumonia to the right lower lobe likely aspiration Plan: Suicide attempt with Tizandine overdose with history of depression/anxiety with increased stress factors at home: Spoke to patient. She appears back to [employer] [facility] line. She is no longer suicidal. Psychiatry evaluated patient. Psychiatry recommends medication. Will initiate medication but verify meds. Patient is not require inpatient psychiatric transfer. Addressed cocaine/amphetamine risks. Continue to treat pneumonia. Wean off oxygen. Anticipate improvement over the next 1-2 days. Mild dehydration: Will provide IV fluids. Will monitor electrolytes closely. COPD: Will provide medication. Hypertension: Need to obtain home medication. Blood pressure stable this time. No need for medication Chronic pain: Discontinue all pain medication and muscle relaxer. Tobacco abuse: Will address tobacco cessation. Alcohol abuse: Will address alcohol cessation. Cocaine/amphetamine abuse: Cessation addressed. Leukocytosis early pneumonia to the right lower lung noted Likely aspiration: Continue IV antibiotic therapy. Wean off oxygen. Will monitor closely. White count improved. Time Spent Managing Pts Care (In Minutes): 55
[2020-01-27] MEDS: PIPER/TAZO/NS 3.375gm 3.375 GM/100 ML BAG IVPB SCH ×2 (00:51→08:42)
[2020-01-27 05:48] LABS: Potassium 3.8 mmol/L (3.5-5.1)
[2020-01-27] MEDS ORDERED: POTASSIUM CL SA 10 MEQ TAB PO ONE ×2 (07:09→07:38)
[2020-01-27] MEDS ORDERED: GABAPENTIN 300 MG CAP ONE (07:37)
[2020-01-27] MEDS ORDERED: lisinopriL 5 MG TAB ONE (07:38)
[2020-01-27] MEDS ORDERED: AMLODIPINE 5 MG TAB ONE (07:38)
[2020-01-27] MEDS ORDERED: ENOXAPARIN 40 MG/0.4 ML SQ ONE (07:39)
[2020-01-27] MEDS ORDERED: LEVOTHYROXINE SOD 0.05 MG TABLET PO SCH (07:45)
[2020-01-27] MEDS: ENOXAPARIN 40 MG/0.4 ML SQ SCH (08:17)
[2020-01-27] MEDS: DULERA 100/5 (MOMETASONE/FORMOTEROL) INHALER IH SCH (08:20)
[2020-01-27] MEDS ORDERED: GABAPENTIN 300 MG CAP PO SCH (09:00)
[2020-01-27] MEDS ORDERED: AMLODIPINE 5 MG TAB PO SCH (09:00)
[2020-01-27] MEDS ORDERED: lisinopriL 5 MG TAB PO SCH (09:00)
--- NOTE | 2020-01-27 10:01 | P.DS ---
Admission Date: 01/25/20 Discharge Date: 01/27/20 Primary Care Provider: Unknown Disposition: ROUTINE DISCHARGE Discharge Condition: GOOD Reason for Admission: Suicide attempt Consultations: PSYC-Dr. Bear Procedures: CXR: FINDINGS: Moderate right and mild left basilar opacities mildly improved. The heart is normal size Possible air-fluid level within the lung base seen on the lateral view. It is not seen on the frontal view and is uncertain the real finding. This can be followed on subsequent chest x-ray IMPRESSION: Moderate right and mild left basilar opacities consistent pneumonia mildly improved Medical Problem List: Suicide attempt with Tizandine overdose with depression/anxiety with increased stress factors at home Leukocytosis secondary to right lower lobe pneumonia likely aspiration COPD Hypertension Chronic pain Hypothyroidism Tobacco abuse Alcohol abuse Cocaine/amphetamine abuse Brief History of Present Illness: 59-year-old female presented to the emergency room with suicide attempt with overdose of Zanaflex. Patient was brought in by EMS. Information came from the ER physician and patient. Patient has been under a great deal of stress. She recently lost her mother to COVID 19 in November. ER reports that the patient apparently took 20 ta bs of tizanidine 4 mg yesterday. Is unclear when she took the medication. There is also reports that apparently family said that she was trying to kill herself. The patient admitted taking the medication. When she was initially evaluated by EMS patient was combative. Blood pressure was slightly low. In the ER patient was further evaluated. Vital signs stable. White count 17.7. Hemoglobin 14.5. Sodium 145, potassium 3.6. BN of 17, creatinine 1.23 with a GFR 45. Glucose 143. Patient appears stable at this time. Patient with 1 on 1 care due to suicide attempt. Patient admitted for further evaluation and treatment. When I saw the patient in the ER, she was still slightly groggy but able to converse. She does admit taking the overdose of medication. She has been under a great deal of stress. She did report that she looked up on the Internet about Tizandine side effects. She want to make sure that it would not lead to . She did report that she did speak to family about wanting to hurt herself. She understands that she does not want do this anymore. She is depressed. She is willing to get help. Patient with multiple medical problems including COPD, tobacco abuse, alcohol abuse, and chronic pain. Hospital Course: Patient presented with suicide attempt after she took multiple pills of Tizanidine. Patient with history of depression with anxiety. Patient also reported increased stressors at home including recent loss of her mother. Patient admitted that she did take the medication-Tizanidine. Patient no longer suicidal. She understood what she did was wrong. Patient was evaluated by psychiatry. Psychiatry felt that she was safe to go home. No need for inpatient psychiatric transfer was required. At this time patient no longer suicidal. Patient has done well. Education on depression/anxiety, suicide, and no further use of Tizanidine has been addressed in detail. Patient understands this. Medications reviewed. Patient will no longer take Xanax or Ambien as well. At discharge she will continue with Cymbalta 20 mg daily. Recommend follow up with psychiatry within 1 week to further evaluate and readdress her depression with anxiety. Patient would benefit with stress counseling. Patient will be provided information on suicide hotline if she continues to have difficulty.Patient will go home with daughter. Patient also found to have leukocytosis. This was related to right lower lobe pneumonia likely from aspiration related to her overdose of Tizanidine. Patient was treated with IV antibiotic therapy. This was transition to oral. So far blood cultures negative. There was also some suspicion of UTI. Urine culture pending at discharge. At discharge she is without significant shortness of cirilo ath. Patient no longer on oxygen. At discharge she will continue with Augmentin 875 mg 1 pill twice daily for 7 days. Patient will continue with incentive spirometer at home. Recommend follow up with her PCP in 1 week to follow up this hospitalization. Recommend to recheck chest x-ray in 2-4 weeks to monitor resolution. Patient with underlying COPD. Patient was provided medication. Patient has done well. Patient without significant shortness of breath. At discharge patient will continue with Symbicort 2 puffs twice daily and albuterol 2 puffs 3 times a day as needed for shortness of breath. Recommend follow up with pulmonology as an outpatient to follow up her care and monitor her COPD. Patient with hypertension. This has remained stable. At discharge she will continue with Norvasc 5 mg daily and lisinopril 2.5 mg daily. Recommend to monitor blood pressure daily. Patient should keep a log of blood pressures to further address with PCP. Recommend to maintain blood pressure less 150/80. Further adjustment may be required if taking medication. This can be done with the help of PCP. May need to hold medication if blood pressure less than 100 systolic. Recommend follow up with PCP to further monitor and address hypertension for better control. Patient with tobacco abuse. Tobacco cessation addressed in detail. Patient also found to be positive for cocaine and amphetamines. This was addressed in detail. Risks address in detail with the patient. She understands risks include . Patient plans to quit cocaine and amphetamines. Cessation education provided. Patient may benefit with rehab if she continues to persist in using illegal drugs. Patient with alcohol abuse. Alcohol cessation education provided. Will provide education on alcoholics anonymous. Patient with chronic pain. This has remained stable. Patient may continue with gabapentin 600 mg 1 pill twice daily. Patient will no longer take Tizanidine. Patient would benefit with chronic pain management evaluation as an outpatient if further medication is required. Patient with hypothyroidism. At discharge she will continue with levothyroxine 50 mcg daily. Recommend to recheck tsh and free T4 in 4-6 weeks to monitor her progress. This can be done with the help of her PCP. Vital Signs/Physical Exam: Temp Pulse Resp BP Pulse Ox 98.6 F 63 20 138/87 96 01/27/20 08:00 01/27/20 09:00 01/27/20 09:00 01/27/20 09:00 01/27/20 09:00 General: Alert, In no apparent distress, Oriented x3, Cooperative HEENT: Atraumatic, Mucous membr. moist/pink Neck: Supple Respiratory: Clear to auscultation bilaterally, Normal air movement Cardiovascular: Normal pulses, Regular rate/rhythm Gastrointestinal: Normal bowel sounds, Soft and benign, Non-distended, No tenderness, No masses, No rebound, No guarding Musculoskeletal: No erythema, No tenderness, No warmth Integumentary: No tenderness/swelling, No erythema, No warmth, No cyanosis Neurological: Normal speech, Normal strength at 5/5 x4 extr, Normal tone, Normal affect Other Physical/Emotional Findings: She is no longer suicidal. Laboratory Data at Discharge: WBC 19.8 K/uL (4.3-10.9) H D 01/26/20 06:20 Hgb 11.9 g/dL (12.0-15.0) L 09/19/20 06:20 Hct 35.4 % (36.0-45.0) L 01/26/20 06:20 Plt Count 204 K/uL (152-406) 01/26/20 06:20 PT 12.0 SECONDS (9.5-12.5) 01/24/20 13:45 INR 1.02 01/24/20 13:45 APTT 24.7 SECONDS (24.3-36.9) 01/24/20 13:45 Sodium 139 mmol/L (136-145) 01/27/20 05:17 Potassium 3.8 mmol/L (3.5-5.1) 01/27/20 05:17 BUN 12 mg/dL (7-18) 01/27/20 05:17 Creatinine 0.73 mg/dL (0.55-1.3) 01/27/20 05:17 Glucose 102 mg/dL (74-106) 01/27/20 05:17 Magnesium 2.0 mg/dL (1.8-2.4) 01/26/20 06:20 Total Bilirubin 0.5 mg/dL (0.2-1.0) 01/24/20 13:45 AST 11 U/L (15-37) L 01/24/20 13:45 ALT 14 U/L (12-78) 01/24/20 13:45 Alkaline Phosphatase 74 U/L (45-117) 01/24/20 13:45 Home Medications: Amlodipine [Norvasc*] 1 tab PO DAILY 04/02/17 Gabapentin 1 tab PO BID 04/02/17 Lisinopril [Zestril] 1 tab PO DAILY 04/02/17 Duloxetine [Cymbalta *] 1 tab PO DAILY 01/25/20 Levothyroxine [Synthroid*] 1 tab PO DAILY 01/25/20 Albuterol Inhaler [Ventolin Inhaler*] 2 puff IH Q6H PRN #1 hfa.aer.ad 01/27/20 Amoxicillin/Potassium Clav [Augmentin 875-125 Tablet] 1 each PO BID #14 tablet 01/27/20 Budesonide/Formoterol Fumarate [Symbicort 160-4.5 Mcg Inhaler] 2 puff IH BID #1 hfa.aer.ad 01/27/20 New Medications: Amoxicillin/Potassium Clav [Augmentin 875-125 Tablet] 1 each PO BID #14 tablet Budesonide/Formoterol Fumarate [Symbicort 160-4.5 Mcg Inhaler] 2 puff IH BID #1 hfa.aer.ad Albuterol Inhaler [Ventolin Inhaler*] 2 puff IH Q6H PRN #1 hfa.aer.ad PRN Reason: Shortness Of Breath Patient Discharge Instructions: 1. Recommend follow up with PCP within 1 week to follow up this hospitalization and to continue patient care. 2. Patient presented with suicide attempt after she took multiple pills of Tizanidine. Patient with history of depression with anxiety. Patient also reported increased stressors at home including recent loss of her mother. Patient admitted that she did take the medication-Tizanidine. Patient no longer suicidal. She understood what she did was wrong. Patient was evaluated by psychiatry. Psychiatry felt that she was safe to go home. No need for inpatient psychiatric transfer was required. At this time patient no longer suicidal. Patient has done well. Education on depression/anxiety, suicide, and no further use of Tizanidine has been addressed in detail. Patient understands this. Medications reviewed. Patient will no longer take Xanax or Ambien as well. At discharge she will continue with Cymbalta 20 mg daily. Recommend follow up with psychiatry within 1 week to further evaluate and readdress her depression with anxiety. Patient would benefit with stress counseling. Patient will be provided information on suicide hotline if she continues to have difficulty.Patient will go home with daughter. 3. Patient also found to have leukocytosis. This was related to right lower lobe pneumonia likely from aspiration related to her overdose of Tizanidine. Patient was treated with IV antibiotic therapy. This was transition to oral. So far blood cultures negative. There was also some suspicion of UTI. Urine culture pending at discharge. At discharge she is without significant shortness of breath. Patient no longer on oxygen. At discharge she will continue with Augmentin 875 mg 1 pill twice daily for 7 days. Patient will continue with incentive spirometer at home. Recommend follow up with her PCP in 1 week to follow up this hospitalization. Recommend to recheck chest x-ray in 2-4 weeks to monitor resolution. 4. Patient with underlying COPD. Patient was provided medication. Patient has done well. Patient without significant shortness of breath. At discharge patient will continue with Symbicort 2 puffs twice daily and albuterol 2 puffs 3 times a day as needed for shortness of breath. Recommend follow up with pulmonology as an outpatient to follow up her care and monitor her COPD. 5. Patient with hypertension. This has remained stable. At discharge she will continue with Norvasc 5 mg daily and lisinopril 2.5 mg daily. Recommend to monitor blood pressure daily. Patient should keep a log of blood pressures to further address with PCP. Recommend to maintain blood pressure less 150/80. Further adjustment may be required if taking medication. This can be done with the help of PCP. May need to hold medication if blood pressure less than 100 systolic. Recommend follow up with PCP to further monitor and address hypertension for better control. 6. Patient with tobacco abuse. Tobacco cessation addressed in detail. Patient also found to be positive for cocaine and amphetamines. This was addressed in detail. Risks address in detail with the patient. She understands risks include . Patient plans to quit cocaine and amphetamines. Cessation education provided. Patient may benefit with rehab if she continues to persist in using illegal drugs. 7. Patient with alcohol abuse. Alcohol cessation education provided. Will provide education on alcoholics anonymous. 8. Patient with chronic pain. This has remained stable. Patient may continue with gabapentin 600 mg 1 pill twice daily. Patient will no longer take Tizanidine. Patient would benefit with chronic pain management evaluation as an outpatient if further medication is required. 9. Patient with hypothyroidism. At discharge she will continue with levothyroxine 50 mcg daily. Recommend to recheck tsh and free T4 in 4-6 weeks to monitor her progress. This can be done with the help of her PCP. Diet: AHA Activity: Ad leeanna Time spent managing pt's care (in minutes): 55
[2020-01-27 10:10] LABS: Absolute Lymphocytes (CBC) 1.7 K/uL (0.7-4.9); Basophils % 0.7 % (0-1.3); Hematocrit 37.4 % (36.0-45.0); MPV 7.9 fL (7.6-11.3); RBC Red Blood Cell Count 4.09 M/uL (3.86-4.86)
[2020-01-27 11:59] LABS: Platelet Estimate ADEQ
[2020-01-27 12:00] LABS: Blood Morphology Comment NOT SEEN (NOT SEEN)
[2020-01-27 12:34] VITALS: BP 131/80; TEMP 98.4; O2SAT 96
--- NOTE | 2020-01-28 10:45 | CON ---
Date of Consultation: 01/25/2020 Chief Complaint: Suicide attempt via overdose on Zanaflex. History Of Present Illness: The patient was seen at the emergency room on account of suicidal attemp t via overdose on Zanaflex on 01/24/2020. She was brought to the ER by EMS services. los t the mom in November to [facility]-19. She says she was very close the mom as she has been the caregiver and she si feeling heartbroken of that. She was unable to see her before she passed. The patient also states that she lost her during . She takes Cymbalta 30 mg p.o. daily. She did no t receive any benefits. The patient also states that she lives alone with her dogs. She reports dusty quent crying spells, feeling hopeless and helpless, and very remorseful for trying to hurt herself. . She denies any history of psychosis. No history of bipolar symptoms. Says she has a layo kenney, who is she is in good term with. she will be live with her for a while , provide some support. RAEANN/ADENIKEL Voice ID: [id number] Report ID: [id number]
--- NOTE | 2020-01-28 10:45 | CON ---
Date of Consultation: 01/26/2020 Chief Complaint: Suicide attempt via overdose on Zanaflex. History Of Present Illness: Ms. Boggs is a 59-year-old female, who was brought to the ER via EMS services on account of further overdose on Zanaflex. from COVID-19 infection. The patient reports past history of depressive symptoms with of her few years ago from heart attack. The patient states current episode has been ongoing for about a month, isis [place], feeling helpless and hopeless, lack of motivation. . She is currently taking Cymb deja 30 mg multiple years ago. She does not have any other episodes. She has a daughter, who is supportive and has been in communication with. . She denies psychiatric history o r psychiatric symptoms. No history of bipolar symptoms. Denies abuse of cocaine or amphetamines, wh ich were all positive in her urine . Denies history of alcohol abuse or illicit substance abuse. . She denies symptoms of . No past history of psychiatric inpatient hos pitalization. Physical Examination: Vital Signs: Blood pressure 120/68, respiratory rate 20, O2 sat 99 on room air, pulse rate is 68, te mperature is 98.9 degrees. Mental Status: The patient is a well-nourished female, lying in bed, not in any obvious ac [place] distress. She is alert and oriented to person, time, and place. She is fairly cooperative with interview, slightly groggy. Speech is continuous, slightly slurred, no preservation, normal in rate, rhythm, and volume. Concentration and memory are fair. Mood is depressed. Affect is congruent. T hought process is linear, at times circumstantial. Thought content, no delusional thinking. No [place] or obsession. she has psychiatric evaluation. . No auditory or visual hallucination. Insight, judgment, impulse control are limited to fair. Fund of knowledge average. Language skills fair. Assessment: A 59-year-old female with history of recurrent depression and multiple substan ce abuse overdose on Zanaflex, currently very remorseful healthcare, unable to verbalize the need. Diagnoses: 1.Major depressive disorder, severe, without psychotic features. 2. . 3.Cocaine use disorder. 4.Amphetamine use disorder. Plan: 1. daughter, who will be staying with her. 2.The patient to follow up with psychiatrist 2 weeks post discharge. 3.Increase Cymbalta to 60 mg p.o. daily. We will recommend rehab for substance use. bec omes suicidal treatment team. RANDOLPH Voice ID: [id number] Report ID: [id number]
== END 2020-01-27 12:35 | disposition home or self-care (01) | DRG 917 ==
LOC: ER 13:12 → ERHOLD 17:12 → OBSVTOIN 01-25 08:11 → ERHOLD 01-26 09:31
PROVIDERS: ADMIT Family Medicine; ATTEND Family Medicine
DX: T42.8X2A Poisoning by antiparkinsonism drugs and other central muscle-tone depressants, intentional self-harm, initial encounter (principal); J69.0 Pneumonitis due to inhalation of food and vomit; N39.0 Urinary tract infection, site not specified; F32.2 Major depressive disorder, single episode, severe without psychotic features; G89.29 Other chronic pain; I10 Essential (primary) hypertension; F17.210 Nicotine dependence, cigarettes, uncomplicated; E86.0 Dehydration; F10.10 Alcohol abuse, uncomplicated; E03.9 Hypothyroidism, unspecified; F15.10 Other stimulant abuse, uncomplicated; F14.10 Cocaine abuse, uncomplicated; D72.829 Elevated white blood cell count, unspecified; J44.9 Chronic obstructive pulmonary disease, unspecified; F41.8 Other specified anxiety disorders; Z79.891 Long term (current) use of opiate analgesic; Z79.899 Other long term (current) drug therapy; Z79.01 Long term (current) use of anticoagulants; Z20.828 Contact with and (suspected) exposure to other viral communicable diseases
CPT/HCPCS: 36415; 51702; 71045; 71046; 80048; 80076; 80307; 80320; 80329; 81003; 81015; 83605; 83735; 84145; 84439; 84443; 85025; 85610; 85730; 87040; 87077; 87086; 87088; 87186; 93005; 94010; 99285; G0378; J1650; J2543; J7030; J7606; U0003

== ENCOUNTER 2023-11-29 14:35 | Emergency (ER) | payer BC ==
[2023-11-29] MEDS ORDERED: IBUPROFEN 400 MG TAB ONE (15:15)
[2023-11-29] MEDS ORDERED: HYDROCODONE/APAP 10/325 TAB ONE (15:15)
--- NOTE | 2023-11-29 17:16 | RAD REPORT ---
EXAM DESCRIPTION: CT - Chest Abd Pelvis Wo Con - 11/29/2023 3:40 pm CLINICAL HISTORY: fall COMPARISON: Chest For Pe Angio dated 04/01/2017 TECHNIQUE: Thin axial CT images of the chest, abdomen, and pelvis, performed without IV contrast. Mu ltiplanar reformats were generated and reviewed. All CT scans are performed using dose optimization technique as appropriate and may include automated exposure control or mA/KV adjustment according to patient size. FINDINGS: The lungs are clear.Trace left pleural effusion.No intrathoracic adenopathy. The liver, spleen, pancreas, adrenal glands and kidneys are within normal limits. No bowel obstruction, free air, free fluid or abscess. Mild colonic diverticulosis. No pathologic ly mphadenopathy in the abdomen or pelvis. No worrisome osseous finding. IMPRESSION: No acute traumatic findings. Trace left pleural effusion, nonspecific. Mild colonic diverticulosis.
[2023-11-29] MEDS ORDERED: methocarbamoL 500 MG TAB ONE (17:58)
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
[2023-12-01 17:44] VITALS: BP 161/94; TEMP 98.4; O2SAT 100
== END 2023-11-29 18:31 | disposition home or self-care (01) ==
LOC: ER 14:35
DX: M25.511 Pain in right shoulder (principal); M54.9 Dorsalgia, unspecified; W11.XXXA Fall on and from ladder, initial encounter; I10 Essential (primary) hypertension
CPT/HCPCS: 71250; 74176; 99283

== ENCOUNTER 2025-02-12 13:52 | Emergency (ER) | payer BC, OTHER ==
[2025-02-12] MEDS ORDERED: HYDROCODONE/APAP 7.5/325 MG TAB ONE (15:24)
--- NOTE | 2025-02-12 16:07 | RAD REPORT ---
EXAMINATION: Wrist Right 3 View VIEWS: Three views CLINICAL INDICATION: Female, 64 years old. Pain;Swelling;Smash injury RIGHT COMPARISON: No prior exams IMPRESSION: Thin lucency at the distal ulnar diaphysis may be a nutrient channel or nondisplaced fracture. Distal radius appears intact. Remote ulnar styloid fracture. Radiocarpal joint space narrowing.
--- NOTE | 2025-02-12 16:14 | EDPHYS ---
Physician Documentation [facility] Name: Norma Boggs Age: 64 yrs Sex: Female : 1960 Arrival Date: 02/12/2025 Time: 13:52 Bed 10 Private MD: ED Physician Johann Rossi HPI: 02/12 14:11 This 64 yrs old Female presents to ER via Ambulatory with complaints of Wrist Pain, Arm sb4 Pain. 14:11 Patient is complaining of pain in her right wrist/forearm. States that last night she sb4 was working on her outdoor kitchen when her arm got trapped in between some angle iron. She states that she can still move all of her fingers but has a lot of pain with range of motion of her wrist and there is a lot of swelling. She states that she iced it and took a muscle relaxer which was able to help her sleep last night but it is hurting her a lot today. No numbness or tingling. Denies any prior injuries. Historical: - Allergies: 14:11 No Known Allergies; me1 - PMHx: 14:11 Back pain; BOWEL PERFORATION; carpal tunnel; Depression; Diverticulitis; GI Bleed; me1 Hypertension; Hypothyroidism; - PSHx: 14:11 bowel surgery (d ); me1 - Immunization history:: Adult Immunizations up to date. - Infectious Disease History:: Denies. - Social history:: Smoking status: Patient reports the use of cigarette tobacco products, smokes one-half pack cigarettes per day. ROS: 14:11 Constitutional: Negative for fever, chills, and weight loss, sb4 14:11 MS/extremity: Positive for injury or acute deformity, pain, swelling, tenderness, of the right wrist and palmar aspect of right forearm, 14:11 All other systems are negative, Exam: 14:11 Hand exam: ROM: limited active range of motion due to pain, limited passive range of sb4 motion due to pain, Circulation is intact in all extremities. Pulses: are normal with no appreciated deficits, Perfusion: the extremity is normally perfused throughout, 14:11 Constitutional: This is a well developed, well nourished patient who is awake, alert, and in no acute distress. Head/Face: Normocephalic, atraumatic. Eyes: Extra-ocular motions intact. Periorbital areas with no swelling, redness, or edema. ENT: Mucous membranes moist. Respiratory: No increased work of breathing, no retractions or nasal flaring. Skin: Warm, dry with normal turgor. Normal color with no rashes, no lesions, and no evidence of cellulitis. Vital Signs: 14:07 BP 154 / 95; Pulse 61; Resp 16; Temp 98.5; Pulse Ox 100% ; Weight 58.97 kg; Height 5 me1 ft. 7 in. ; Pain 6/10; 14:07 Body Mass Index 20.36 (58.97 kg, 170.18 cm) me1 14:07 Pain Scale: Adult me1 MDM: 14:00 Medical Screening Exam initiated sb4 14:12 Differential diagnosis: closed fracture, contusion. sb4 15:52 Awaiting: X-ray results. sb4 15:55 Independent interpretation of the following test(s) in the Emergency Department X-Ray: sb4 My interpretation is Right wrist x-ray images -possible midshaft ulnar fracture is nondisplaced. 16:12 Data reviewed: vital signs, nurses notes, radiologic studies, and as a result, I will sb4 discharge patient. Counseling: I had a detailed discussion with the patient and/or guardian regarding the historical points, exam findings, and any diagnostic results supporting the discharge/admit diagnosis, radiology results, the need for outpatient follow up, for definitive care, to return to the emergency department if symptoms worsen or persist or if there are any questions or concerns that arise at home. 02/12 14:09 Order name: Wrist Right 3 View XRAY; Complete Time: 16:10 sb4 02/12 16:11 Order name: Wrist Splint; Complete Time: 16:30 sb4 Administered Medications: 15:35 Drug: Hydrocodone-Acetaminophen PO (7.5 mg-325 mg) 1 tabs PO once Route: PO; ss 16:30 Follow up: Response: No adverse reaction; Pain is decreased; RASS: Alert and Calm (0) ss Disposition Summary: 02/12/25 16:13 Discharge Ordered Notes: Location: Home sb4 Problem: new sb4 Symptoms: have improved sb4 Condition: Stable sb4 Diagnosis - Acute nondisplaced fracture of distal ulnar diaphysis sb4 - Acute nondisplaced fracture of distal ulnar diaphysis, right sb4 Followup: sb4 - With: Ilya Parker MD - When: As needed - Reason: Recheck today's complaints, Re-evaluation by your physician Discharge Instructions: - Discharge Summary Sheet sb4 - Ulnar Fracture sb4 Forms: - Patient Portal Instructions sb4 - Leadership Thank You Letter sb4 Prescriptions: - Cyclobenzaprine 10 mg Oral Tablet - take 1 tablet ORAL route every 8 hours As needed; 30 tablet; Refills: 0, sb4 Product Selection Permitted Signatures: Dispatcher [employer] EDPam Alfaro, RN RN Joyce Buckley, PA-C PA-C sb4 Agueda Barfield RN RN me1 Corrections: (The following items were deleted from the chart) 14:11 14:11 PMHx: Thyroid problem; me1 me1
--- NOTE | 2025-02-12 16:14 | ER ---
Nurse's Notes [facility] Name: Norma Boggs Age: 64 yrs Sex: Female : 1960 Arrival Date: 02/12/2025 Time: 13:52 Bed 10 Private MD: Diagnosis: Acute nondisplaced fracture of distal ulnar diaphysis, right Presentation: 02/12 14:07 Chief complaint: Patient states: caught right wrist/forearm between some angle iron me1 last night. Swelling noted. Pain level 10/10 with movement. 6/10 at rest. Coronavirus screen: At this time, the client does not indicate any symptoms associated with coronavirus-19. Ebola Screen: No symptoms or risks identified at this time. Initial Sepsis Screen: Does the patient meet any 2 criteria? No. Patient's initial sepsis screen is negative. Does the patient have a suspected source of infection? No. Patient's initial sepsis screen is negative. Risk Assessment: Do you want to hurt yourself or someone else? Patient reports no desire to harm self or others. Onset of symptoms was February 11, 2025 at 19:00. 14:07 Method Of Arrival: Ambulatory ia1 14:07 Acuity: [id number] 4 me1 Historical: - Allergies: 14:11 No Known Allergies; me1 - PMHx: 14:11 Back pain; BOWEL PERFORATION; carpal tunnel; Depression; Diverticulitis; GI Bleed; me1 Hypertension; Hypothyroidism; - PSHx: 14:11 bowel surgery (d ); me1 - Immunization history:: Adult Immunizations up to date. - Infectious Disease History:: Denies. - Social history:: Smoking status: Patient reports the use of cigarette tobacco products, smokes one-half pack cigarettes per day. Screenin:35 Abuse screen: Denies threats or abuse. Denies injuries from another. Nutritional ss screening: No deficits noted. Tuberculosis screening: Never had TB. Assessment: 15:35 General: Appears in no apparent distress. comfortable, Behavior is calm, cooperative. ss Pain: Complains of pain in right wrist Pain currently is 1 out of 10 on a pain scale. at worst was 8 out of 10 on a pain scale. Aggravated by increased activity, repositioning. Neuro: Level of Consciousness is awake, alert, obeys commands, Oriented to person, place, time, situation. Cardiovascular: Pulses are palpable in right radial artery and left radial artery. Respiratory: Airway is patent Respiratory effort is even, unlabored, Respiratory pattern is regular, symmetrical. Derm: Skin is intact, is healthy with good turgor, Skin is pink, warm \T\ dry. normal. Musculoskeletal: Circulation, motion, and sensation intact. Vital Signs: 14:07 BP 154 / 95; Pulse 61; Resp 16; Temp 98.5; Pulse Ox 100% ; Weight 58.97 kg; Height 5 me1 ft. 7 in. ; Pain 6/10; 14:07 Body Mass Index 20.36 (58.97 kg, 170.18 cm) me1 14:07 Pain Scale: Adult me1 ED Course: 13:55 Patient arrived in ED. mr 14:00 Joyce Jennings PA-C is PHCP. sb4 14:00 Joahnn Rossi MD is Attending Physician. sb4 14:10 Triage completed. me1 14:11 Arm band placed on Patient placed in waiting room. me1 15:31 Pam Crawford, IGNACIO is Primary Nurse. ss 15:35 Patient has correct armband on for positive identification. ss 15:55 Wrist Right 3 View XRAY In Process Unspecified. EDMS 16:12 Ilya Parker MD is Referral Physician. sb4 16:30 No provider procedures requiring assistance completed. Patient did not have IV access ss during this emergency room visit. Velcro wrist splint applied to right wrist. Administered Medications: 15:35 Drug: Hydrocodone-Acetaminophen PO (7.5 mg-325 mg) 1 tabs PO once Route: PO; ss 16:30 Follow up: Response: No adverse reaction; Pain is decreased; RASS: Alert and Calm (0) ss Medication: 15:35 VIS not applicable for this client. ss Outcome: 16:13 Discharge ordered by . sb4 16:36 Discharged to home ambulatory, ss 16:36 Condition: good 16:36 Discharge instructions given to patient, Instructed on discharge instructions, follow up and referral plans. medication usage, Demonstrated understanding of instructions, follow-up care, medications, Prescriptions given X 1, 16:36 Patient left the ED. ss Signatures: Dispatcher [employer] EDNH Briseida Ramos, Reg Reg mr Pam Crawford RN RN Joyce Jennings PA-C PA-C sb4 Agueda Barfield, RN RN me1 Corrections: (The following items were deleted from the chart) 14:11 PMHx: Thyroid problem; me1 me1
[2025-02-12 17:09] VITALS: BP 154/95; TEMP 98.5; O2SAT 100
== END 2025-02-12 16:36 | disposition home or self-care (01) ==
LOC: ER 13:52
PROC: 2W3CX1Z Immobilization of Right Lower Arm using Splint (ICD-10-PCS; principal; 2025-02-12)
DX: S52.691A Other fracture of lower end of right ulna, initial encounter for closed fracture (principal)
CPT/HCPCS: 99283